=== PATIENT | female | born 1935 | race Caucasian/White ===

== ENCOUNTER → 2018-09-22 08:02 | Outpatient (CLI) | payer MEDICARE, SELFPAY ==
[2018-09-22 08:49] LABS: Add Manual Diff / Slide Review NO; Basophils Absolute Auto 0 /uL (0-100); Basophils Percent Auto 0.7 % (0-2); Eosinophils Absolute Auto 200 /uL (0-450); Eosinophils Percent Auto 3.2 % (2-4); Hematocrit 39.2 % (36-46); Hemoglobin 12.9 g/dL (12.0-16.0); Lymphocytes Absolute Auto 1900 /uL (1100-4500); Lymphocytes Percent Auto 34.9 % (25-40); Mean Corpuscular Hemoglobin 30.3 PG (26-34); Mean Corpuscular Volume 91.7 fL (80-100); Monocytes Absolute Auto 500 /uL (0-900); Monocytes Percent Auto 8.4 % (3-14); Neutrophils Absolute Auto 2900 /uL (1500-7000); Neutrophils Percent Auto 52.8 % (50-75); Platelet Count 168 X10^3/uL (150-400); Red Blood Cell Count 4.27 X10^6/uL (4.0-5.2); Red Cell Distribution Width 13.9 % (11.6-14.8); White Blood Cell Count 5.5 X10^3/uL (4.5-11.0)
[2018-09-22 09:02] LABS: Alanine Aminotransferase 28 IU/L (9-52); Albumin 4.2 g/dL (3.5-5.0); Albumin Globulin Ratio 1.6 (1.0-2.8); Alkaline Phosphatase 61 U/L (38-126); Aspartate Aminotransferase 29 IU/L (14-36); Bilirubin Total 1.4 mg/dL (0.2-1.3); Blood Urea Nitrogen 24 mg/dL (7-17); Calcium 9.1 mg/dL (8.4-10.2); Carbon Dioxide 23 mmol/L (22-32); Chloride 107 mmol/L (98-107); Cholesterol 179 mg/dL (140-199); Estimated Glomerular Filt Rate 53.1 mL/min (>60); Globulin 2.7 g/dL (1.7-4.1); Glucose 95 mg/dL (80-110); HDL Cholesterol 70 mg/dL (40-60); HEMOLYSIS < 15 (0-50); LDL Cholesterol Calculated 92 mg/dL (<100); Sodium 140 mmol/L (137-145); Total Protein 6.9 g/dL (6.3-8.2); Triglycerides 85 mg/dL (35-150)
[2018-09-22 09:38] LABS: Thyroid Stimulating Hormone 3.31 uIU/mL (0.47-4.68)
== END ==
PROVIDERS: PCP Family Medicine; Visit Provider Family Medicine
DX: I10 Essential (primary) hypertension (principal); R53.83 Other fatigue; R68.89 Other general symptoms and signs
CPT/HCPCS: 36415; 80053; 80061; 84443; 85025

== ENCOUNTER → 2018-09-24 09:46 | Outpatient (CLI) | payer MEDICARE, SELFPAY ==
[2018-09-24 10:32] LABS: Appearance Urine UA CLEAR; Bilirubin Urine UA NEGATIVE (NEGATIVE); Glucose Urine UA NEGATIVE (Negative); Ketones Urine UA NEGATIVE (NEGATIVE); Leukocyte Esterase Urine UA NEGATIVE (NEGATIVE); Nitrite Urine UA NEGATIVE (Negative); Occult Blood Urine UA TRACE-INTACT (Negative); Protein Urine UA NEGATIVE (Negative); Specific Gravity Urine UA 1.015 (1.000-1.035); Urobilinogen Urine UA 0.2 E.U./dL (0.2)
[2018-09-24 10:34] LABS: Color Urine UA Straw
== END ==
PROVIDERS: PCP Family Medicine; Visit Provider Family Medicine
DX: I10 Essential (primary) hypertension (principal); R53.83 Other fatigue; R68.89 Other general symptoms and signs
CPT/HCPCS: 81003

== ENCOUNTER 2018-10-01 03:46 | Emergency (ER) | payer MEDICARE, SELFPAY ==
--- NOTE | 2018-10-01 03:48 | ED.LOWEXIN ---
HPI - Extremity Injury (Lower) General Chief Complaint: Extremity Injury, Lower Stated Complaint: twisted left ankle last night Time Seen by Provider: 10/01/18 03:48 Source: patient and family Mode of arrival: ambulatory Limitations: no limitations History of Present Illness HPI Narrative: 82-year-old female nonsmoker presents with her in the chief complaint of left ankle pain after tripping uneven concrete on her way home from a meeting at 8:00 p.m. She fell and injured her foot/ankle and then walked home multiple blocks on her injured foot. She complains increased pain with ambulation and the development of some bruising along her lateral ankle. Patient denies any other injuries. She has no head neck or back pain. She has no hip or knee pain. She denies numbness, tingling or weakness MD complaint: ankle injury and foot injury Onset (ago): hour(s) Type of Injury: inversion Place: street/outdoors Severity: mild Relieving factors: rest Exacerbating factors: weight bearing and movement Context: fall and walking Associated symptoms: snap/pop sensation Other symptoms: none Related Data Home Medications Medication Instructions Recorded Confirmed [Eye-Protect] #0 09/09/17 08/05/18 aspirin #0 09/09/17 08/05/18 glucosamine sulfate [Genicin] 500 mg PO #0 09/09/17 08/05/18 latanoprost 1 drp OPHTH HS #0 09/09/17 08/05/18 timolol maleate [Timoptic] 1 drp OPHTH #0 09/09/17 08/05/18 Previous Rx's Medication Instructions Recorded amlodipine 2.5 mg tablet 2.5 mg PO QDAY #30 tab 09/01/18 Allergies Allergy/AdvReac Type Severity Reaction Status Date / Time Penicillins [PENICILLINS] Allergy Unknown Verified 10/01/18 03:59 Review of Systems Constitutional Denies chills, Denies fever(s), Denies lethargy and Denies weakness Eyes Denies change in vision, Denies eye discharge, Denies irritation and Denies loss of vision ENT Ears, Nose, Mouth, and Throat: Denies change in voice, Denies neck pain and Denies sore throat Cardiovascular Denies chest pain, Denies irregular heart rhythm, Denies lightheadedness, Denies palpitations, Denies dyspnea, Denies dyspnea on exertion and Denies orthopnea Respiratory Denies cough, Denies dyspnea, Denies dyspnea on exertion and Denies wheezing Gastrointestinal Gastrointestinal: Denies abdominal pain, Denies change in bowel habits, Denies diarrhea, Denies nausea and Denies vomiting Genitourinary Denies hematuria, Denies flank pain, Denies urinary incontinence and Denies urinary urgency Musculoskeletal Reports joint swelling, Reports limited range of motion and Denies neck pain Integumentary/Breasts Denies pruritus, Denies erythema, Denies rash and Denies wounds Neurologic Denies confusion, Denies loss of vision and Denies weakness Psychiatric Denies anxiety, Denies confusion, Denies depression, Denies homicidal ideation and Denies suicidal ideation Endocrine Denies palpitations Hematologic/Lymphatic Denies easy bruising Allergic/Immunologic Denies wheezing PFSH Family History Father No problems noted. Mother Cancer Social History Smoking Status: Never smoker Exam Narrative Exam Narrative: GEN: Pleasant 82-year-old female in mild distress, rubbing her left foot EYES: Pupils are equal, round, and reactive to light and accommodation. Extraoccular muscles are intact bilaterally. There is no subconjunctival hemorrhage or exudate. CHEST: Lungs are clear to auscultation bilaterally and free of wheezes, rales, or rhonchi. Heart rate is regular rhythm, there are no murmurs, clicks, rubs, or gallops. There is no chest wall tenderness. ABD: Abdomen is soft and nontender. There is no guarding or rebound. Bowel sounds are normal in all 4 quadrants. There is no mass or organomegaly. EXT: No pain to palpation of left hip, knee or ankle. Pain to left lateral foot with ecchymosis overlying 5th metatarsal. Closed, isolated and neurovascularly intact SKIN: Warm, pink, and dry. No erythema or rash Initial Vital Signs Initial Vital Signs: Vital Signs Temperature 98.5 F 10/01/18 03:50 Pulse Rate 94 H 10/01/18 03:50 Respiratory Rate 18 10/01/18 03:50 Blood Pressure 156/78 H 10/01/18 03:50 Pulse Oximetry 99 10/01/18 03:50 Procedures Orthopedic Splinting/Casting Injury #1: Side: left Lower Extremity Injury Location: foot Lower Extremity Immobilizer: boot orthosis Course Orders Ordered: ED Orders 10/01/18 03:55 XR ankle LT min 3V Stat XR foot LT min 3V Stat Vital Signs - 8 hr 10/01/18 03:50 Temperature 98.5 F Pulse Rate 94 H Respiratory Rate 18 Blood Pressure 156/78 H Pulse Oximetry 99 Discharge Plan Departure Patient Disposition: Home Clinical Impression: Closed fracture of fifth metatarsal bone of left foot Discharge Date/Time: 10/01/18 04:35 Interventions: ED Discharge Assessment Last Done: 10/01/18 04:39 Instructions: DI for Foot Fracture Activity Restrictions/Additional Instructions: *You have been diagnosed with [ proximal fifth metatarsal fracture ] *What to do: *Take medications as directed: tylenol or motrin for pain *Follow up with [facility] in 2-3 days, call for an appointment. Let them know you were seen in the Emergency Department and that we ask that you be seen in follow up *Return to ER if you should have any new, worsening or concerning symptoms *Wear splint for comfort Prescriptions: No Action latanoprost 0.005 % drops 1 drp OPHTH HS Qty: 0 RF: 0 timolol maleate [Timoptic] 0.25 % drops 1 drp OPHTH Qty: 0 RF: 0 aspirin 81 MG tablet,delayed release (DR/EC) Qty: 0 RF: 0 glucosamine sulfate [Genicin] 500 MG capsule 500 mg PO Qty: 0 RF: 0 [Eye-Protect] Qty: 0 RF: 0 amlodipine [Norvasc] 2.5 mg tablet 2.5 mg PO QDAY Qty: 30 RF: 3 Referrals: Tavares Peterson MD [Physician] -
[2018-10-01 03:50] VITALS: BP 156/78; PULSE 94; RESP 18; TEMP 36.9; O2SAT 99; BMI 20.7
--- NOTE | 2018-10-01 03:55 | DI.RAD.S_ITS ---
PROCEDURE: XR FOOT LT MIN 3V INDICATIONS: Left ankle/foot pain TECHNIQUE: 3 views of the foot were acquired. COMPARISON: None. FINDINGS: Bones: Mildly displaced fracture to the base of the fifth metatarsal is noted. Fracture extends into the fifth tarsal-metatarsal joint. Soft tissues: No tibiotalar joint effusion. Achilles tendon appears normal. IMPRESSION: Fifth metatarsal fracture. Dictated by: Nicole Howard MD, PhD on 10/01/2018 at 7:37 Approved by: Nicole Howard MD, PhD on 10/01/2018 at 7:38
--- NOTE | 2018-10-01 03:55 | DI.RAD.S_ITS ---
PROCEDURE: XR ANKLE LT MIN 3V INDICATIONS: Left ankle/foot pain TECHNIQUE: 3 views of the ankle were acquired. COMPARISON: None. FINDINGS: Bones: No fractures or dislocations. Ankle mortise is normally aligned. No suspicious bony lesions. Soft tissues: No tibiotalar joint effusion. Achilles tendon appears normal. IMPRESSION: No fracture. No osseous lesion. If symptoms and/or clinical suspicion for pathology persists, further assessment with repeat radiographs (7-10 days) or advanced imaging (e.g. CT, MRI or bone scan) may be helpful. Dictated by: Nicole Howard MD, PhD on 10/01/2018 at 7:38 Approved by: Nicole Howard MD, PhD on 10/01/2018 at 7:38
== END 2018-10-01 04:35 | disposition home or self-care (01) ==
PROVIDERS: Emergency Provider Emergency Medicine; PCP Family Medicine
DX: S92.352A Displaced fracture of fifth metatarsal bone, left foot, initial encounter for closed fracture (principal); W01.0XXA Fall on same level from slipping, tripping and stumbling without subsequent striking against object, initial encounter
CPT/HCPCS: 73610; 73630; 99283

== ENCOUNTER → 2020-02-12 11:37 | Outpatient (CLI) | payer MEDICARE, SELFPAY ==
[2020-02-12 12:22] LABS: Add Manual Diff / Slide Review NO; Basophils Absolute Auto 0 /uL (0-100); Basophils Percent Auto 0.6 % (0-2); Eosinophils Absolute Auto 100 /uL (0-450); Eosinophils Percent Auto 1.7 % (2-4); Hematocrit 37.7 % (36-46); Hemoglobin 12.7 g/dL (12.0-16.0); Lymphocytes Absolute Auto 1200 /uL (1100-4500); Lymphocytes Percent Auto 15.9 % (25-40); Mean Corpuscular HGB Conc 33.7 % (30-36); Mean Corpuscular Hemoglobin 30.8 PG (26-34); Mean Corpuscular Volume 91.4 fL (80-100); Monocytes Absolute Auto 500 /uL (0-900); Monocytes Percent Auto 6.9 % (3-14); Neutrophils Absolute Auto 5800 /uL (1500-7000); Neutrophils Percent Auto 74.9 % (50-75); Platelet Count 148 X10^3/uL (150-400); Red Blood Cell Count 4.12 X10^6/uL (4.0-5.2); Red Cell Distribution Width 14.6 % (11.6-14.8); White Blood Cell Count 7.8 X10^3/uL (4.5-11.0)
[2020-02-12 13:03] LABS: BUN Creatinine Ratio 28.1 (6-22); Blood Urea Nitrogen 36 mg/dL (7-17); Calcium 9.3 mg/dL (8.4-10.2); Carbon Dioxide 26 mmol/L (22-32); Chloride 105 mmol/L (98-107); Estimated Glomerular Filt Rate 39.7 mL/min (>60); Glucose 87 mg/dL (80-110); HEMOLYSIS < 15 (0-50); Potassium 4.4 mmol/L (3.4-5.1); Sodium 139 mmol/L (137-145)
[2020-02-12 13:16] LABS: Vitamin D 25 Hydroxy (D3) 24.7 ng/mL (30.0-100.0)
[2020-02-12 13:19] LABS: Free T4, Direct Thyroxine 1.07 ng/dL (0.78-2.19)
[2020-02-12 13:33] LABS: Thyroid Stimulating Hormone 2.73 uIU/mL (0.47-4.68)
[2020-02-12 13:51] LABS: Vitamin B12 583 pg/mL (239-931)
== END ==
PROVIDERS: PCP Family Medicine; Referring Provider Family Medicine; Visit Provider Family Medicine
DX: I10 Essential (primary) hypertension (principal); M81.0 Age-related osteoporosis without current pathological fracture; R53.83 Other fatigue
CPT/HCPCS: 36415; 80048; 82306; 82607; 84439; 84443; 84481; 85025

== ENCOUNTER → 2020-02-16 08:59 | Outpatient (CLI) | payer MEDICARE, SELFPAY ==
[2020-02-16 10:39] LABS: BUN Creatinine Ratio 22.7 (6-22); Blood Urea Nitrogen 22 mg/dL (7-17); Estimated Glomerular Filt Rate 54.7 mL/min (>60)
== END ==
PROVIDERS: PCP Family Medicine; Referring Provider Family Medicine; Visit Provider Family Medicine
DX: E86.0 Dehydration (principal); N18.3 Chronic kidney disease, stage 3 (moderate)
CPT/HCPCS: 36415; 82565; 84520

== ENCOUNTER → 2021-03-20 10:42 | Outpatient (CLI) | payer MEDICARE, SELFPAY ==
[2021-03-20 11:24] LABS: Add Manual Diff / Slide Review NO; Basophils Absolute Auto 0 /uL (0-100); Basophils Percent Auto 0.9 % (0-2); Eosinophils Absolute Auto 100 /uL (0-450); Hemoglobin 12.5 g/dL (12.0-16.0); Lymphocytes Absolute Auto 1300 /uL (1100-4500); Lymphocytes Percent Auto 25.5 % (25-40); Mean Corpuscular HGB Conc 33.7 % (30-36); Mean Corpuscular Hemoglobin 30.6 PG (26-34); Mean Corpuscular Volume 90.8 fL (80-100); Monocytes Absolute Auto 400 /uL (0-900); Monocytes Percent Auto 8.5 % (3-14); Neutrophils Absolute Auto 3200 /uL (1500-7000); Neutrophils Percent Auto 63.1 % (50-75); Platelet Count 152 X10^3/uL (150-400); Red Blood Cell Count 4.08 X10^6/uL (4.0-5.2); Red Cell Distribution Width 14.6 % (11.6-14.8); White Blood Cell Count 5.1 X10^3/uL (4.5-11.0)
[2021-03-20 11:36] LABS: Alanine Aminotransferase 19 IU/L (<35); Albumin 4.3 g/dL (3.5-5.0); Albumin Globulin Ratio 1.5 (1.0-2.8); Alkaline Phosphatase 55 U/L (38-126); Aspartate Aminotransferase 37 IU/L (14-36); BUN Creatinine Ratio 22.5 (6-22); Bilirubin Total 1.9 mg/dL (0.2-1.3); Blood Urea Nitrogen 20 mg/dL (7-17); Calcium 9.4 mg/dL (8.4-10.2); Carbon Dioxide 28 mmol/L (22-32); Chloride 107 mmol/L (98-107); Creatine Kinase 60 U/L (30-135); Estimated Glomerular Filt Rate > 60.0 mL/min (>60); Globulin 2.8 g/dL (1.7-4.1); Glucose 94 mg/dL (80-110); HEMOLYSIS < 15 (0-50); Potassium 3.9 mmol/L (3.4-5.1); Sodium 142 mmol/L (137-145); Total Protein 7.1 g/dL (6.3-8.2)
[2021-03-20 11:44] LABS: NT-proBNP (BNP-Adult 18+) 1180 pg/mL (<450); Troponin I < 0.012 ng/mL (0.01-0.034)
== END ==
PROVIDERS: PCP Family Medicine; Referring Provider Family Medicine; Visit Provider Family Medicine
DX: M25.471 Effusion, right ankle (principal); M25.472 Effusion, left ankle; N18.30 Chronic kidney disease, stage 3 unspecified
CPT/HCPCS: 36415; 80053; 82550; 83880; 84484; 85025

== ENCOUNTER 2021-06-19 04:37 | Observation (INO) | payer MEDICARE, SELFPAY ==
[2021-06-19] VITALS (18 sets, daily range): BP systolic 110–158; BP diastolic 61–87; PULSE 74–114; RESP 16–29; TEMP 35.9–36.9; O2SAT 94–98; BMI 20.7
--- NOTE | 2021-06-19 04:44 | DI.RAD.S_ITS ---
PROCEDURE: XR LUMBAR SPINE 2-3V INDICATIONS: fall one week ago with back pain TECHNIQUE: 3 views of the lumbar spine were acquired. COMPARISON: None. FINDINGS: Bones: 5 [id number] vertebrae are present. There is normal bony alignment. L2 compression fracture of indeterminate age. L2 compression fracture results in approximately 50% loss of normal central and anterior vertebral body height. Degenerative disc disease noted throughout the lumbar spine. Facet arthropathy throughout the lumbar spine. No suspicious bony lesions. Soft tissues: Overlying bowel gas pattern is normal. No suspicious soft tissue calcifications. IMPRESSION: L2 compression fracture of indeterminate age. Recommend MRI of the lumbar spine for additional evaluation if clinically indicated. Dictated by: Nicole Howard MD, PhD on 06/19/2021 at 8:13 Approved by: Nicole Howard MD, PhD on 06/19/2021 at 8:14
--- NOTE | 2021-06-19 04:55 | ED.BACK ---
HPI - Back Pain/Injury General Chief Complaint: Back Pain/Injury Stated Complaint: back pain Time Seen by Provider: 06/19/21 04:43 History of Present Illness HPI Narrative: 85-year-old female never smoker with a history of hypertension and osteoporosis presents by EMS for evaluation of gradually worsening right flank pain and low back pain over the course of the past week or so. She admits that she had rolled out of bed and landed on her lower back about a week ago and did not think much of it but over the course of weeks had increasing pain. She now has significant pain when at rest and intensifies with motion. It stays in her lower back and is not in the midline but more off to the side. She denies any loss of control of bowel or bladder nor any numbness or tingling of her lower extremities. She has no extremity weakness. She denies any radiation of the symptoms down her legs. She denies fever or chills. She is not dizzy nor weak or lightheaded. She denies any runny nose, sore throat or cough. She has no chest pain or shortness of breath. She has no nausea, vomiting or diarrhea. She denies dysuria, frequency or urgency. She was able to walk yesterday and is in too much pain today Related Data Home Medications Medication Instructions Recorded Confirmed [Eye-Protect] See Rx Instructions .ROUTE 09/09/17 06/19/21 .COMPLEX PRN #0 glucosamine sulfate 500 mg capsule 500 mg PO DAILY #0 09/09/17 06/19/21 (Genicin) latanoprost 0.005 % eye drops 1 drp OPHTH HS #0 09/09/17 06/19/21 timolol maleate 0.25 % eye drops 1 drp OPHTH DAILY #0 09/09/17 06/19/21 (Timoptic) Previous Rx's Medication Instructions Recorded amlodipine 2.5 mg tablet See Rx Instructions .ROUTE 03/28/21 .COMPLEX #90 tab acetaminophen 325 mg tablet 975 mg PO Q8H PRN #10 tab 06/21/21 lidocaine 4 % topical patch 1 patch TOPICAL DAILY PRN #10 ea 06/21/21 (Lidocaine Pain Relief) methocarbamol 500 mg tablet 500 mg PO QID PRN #10 tab 06/21/21 oxycodone 5 mg tablet 5 mg PO Q6HR PRN #10 tab 06/21/21 Allergies Allergy/AdvReac Type Severity Reaction Status Date / Time Penicillins [PENICILLINS] Allergy Unknown Verified 06/19/21 04:55 Review of Systems Review of Systems Narrative: GENERAL: Denies chills, fatigue, malaise, fever, sweats. HEENT: Denies sinus pain, ear pain, sore throat, difficulty swallowing, dizziness. RESPIRATORY: Denies dyspnea, cough, wheezing, hemoptysis, sputum. CARDIOVASCULAR: Denies chest pain, palpitations, orthopnea, edema, GASTROINTESTINAL: Denies nausea, vomiting, abdominal pain, diarrhea, constipation, melena. : Denies dysuria, frequency, incontinence, hematuria, urinary retention. MUSCULOSKELETAL: See HPI SKIN: Denies rash, skin lesions, or other NEUROLOGIC: Denies weakness, headache, numbness, change in speech, confusion, seizures, incoordination. PSYCHIATRIC: No concerning psychosocial issues. 12 point review of systems is negative except for those stated above Patient History Medical History Cataracts, bilateral (~2013) CKD (chronic kidney disease) stage 3, GFR 30-59 ml/min Fatigue Fractures (2000) Glaucoma (~2017) Gout (2001) Hypertension (Unknown) Osteoporosis (~1998) POLST (Physician Orders for Life-Sustaining Treatment) Swelling of both ankles Surgical History History of surgery on arm (~2000) History of tonsillectomy (1961) Status post cholecystectomy (1995) Family History Father No problems noted. Mother Cancer Social History household members: spouse Smoking Status: Never smoker Smoking Status: Never smoker Exam Narrative Exam Narrative: GENERAL: [85 year old patient appears stated age. Well-developed patient, in mild distress. GCS 15 HEAD: Atraumatic. Normocephalic. EYES: Pupils equal round and reactive. Extraocular motions intact. No scleral icterus. No injection or drainage. ENT: Nose without bleeding, purulent drainage. Throat without erythema, tonsillar hypertrophy or exudate. Airway patent. NECK: Trachea midline. Non tender CARDIOVASCULAR: Tachycardic but regular rhythm without murmurs, gallops, or rubs. RESPIRATORY: Clear to auscultation. Breath sounds equal bilaterally. No wheezes, rales, or rhonchi. GASTROINTESTINAL: Abdomen soft, non-tender, nondistended. EXTREMITIES: No edema or joint tenderness. BACK: tender to palp in R buttock, no obvious shortening or rotation NEURO: AOx3. SKIN: No rash or erythema of visible areas Initial Vital Signs Initial Vital Signs: Vital Signs Temperature 98.4 F 06/19/21 04:55 Pulse Rate 114 H 06/19/21 04:55 Respiratory Rate 18 06/19/21 04:55 Blood Pressure 146/67 H 06/19/21 04:55 Pulse Oximetry 97 06/19/21 04:55 Course Orders Ordered: Discontinued Medications Acetaminophen (Acetaminophen 325 Mg Tablet) 975 mg PO Q8H PRN PRN Reason: Fever/Mild Pain (1-3) Last Admin: 06/20/21 15:41 Dose: 975 mg Documented by: Admin: 06/20/21 09:33 Dose: 975 mg Documented by: Admin: 06/19/21 09:25 Dose: 975 mg Documented by: DORY Enoxaparin Sodium (Enoxaparin 40 Mg/0.4 Ml Syringe) 40 mg SUBCUT DAILY [facility] Last Admin: 06/19/21 09:19 Dose: 40 mg Documented by: DORY Enoxaparin Sodium (Enoxaparin 30 Mg/0.3 Ml Syringe) 30 mg SUBCUT DAILY [facility] Last Admin: 06/21/21 09:50 Dose: 30 mg Documented by: Admin: 06/20/21 09:34 Dose: 30 mg Documented by: CELSA Fentanyl (Fentanyl 100 Mcg/2 Ml Inj) 50 mcg 1 mcg/kg (50 mcg) IV NOW ONE Stop: 06/19/21 05:24 Last Admin: 06/19/21 05:30 Dose: 50 mcg Documented by: LAURI Sodium Chloride (Normal Saline 0.9%) 500 mls @ 1,000 mls/hr IV BOLUS ONE Stop: 06/19/21 05:13 Last Infusion: 06/19/21 08:26 Dose: 0 mls/hr Documented by: Admin: 06/19/21 06:20 Dose: 1,000 mls/hr Documented by: LAURI Lidocaine (Lidocaine Patch 1 Each Adh..Patch) 1 each TOP NOW ONE Stop: 06/19/21 09:01 Last Admin: 06/19/21 09:25 Dose: 1 each Documented by: DORY Lidocaine (Lidocaine Patch 1 Each Adh..Patch) 1 each TOP DAILY BINU Last Admin: 06/21/21 09:50 Dose: 1 each Documented by: MOE Lidocaine (Remove Lidocaine Patch) 1 each TOP BEDTIME BINU Last Admin: 06/20/21 20:28 Dose: Not Given Documented by: INOCENCIO Methocarbamol (Methocarbamol 500 Mg Tablet) 500 mg PO QID PRN PRN Reason: Muscle Spasm Last Admin: 06/20/21 14:32 Dose: 500 mg Documented by: Admin: 06/20/21 09:33 Dose: 500 mg Documented by: Admin: 06/19/21 09:36 Dose: 500 mg Documented by: DORY Naloxone HCl (Naloxone 0.4 Mg/Ml Vial) 0.2 mg IV Q2MIN PRN PRN Reason: Opiate Reversal Ondansetron HCl (Ondansetron 4 Mg/2 Ml Inj) 4 mg IV Q8HR PRN PRN Reason: Nausea And Vomiting Oxycodone HCl (Oxycodone Ir 5 Mg Tablet) 5 mg PO Q6HR PRN PRN Reason: Pain, Moderate (4-6) Last Admin: 06/19/21 09:19 Dose: 5 mg Documented by: DORY Vital Signs Vital signs: Vital Signs - 8 hr 06/19/21 04:55 Temperature 98.4 F Pulse Rate 114 H Respiratory Rate 18 Blood Pressure 146/67 H Pulse Oximetry 97 MDM - Back Pain/Injury Lab Data Result diagrams: 06/19/21 05:18 06/19/21 05:18 Labs: Lab Results 06/19/21 06/19/21 06/19/21 Range/Units 05:18 05:18 05:18 WBC 7.5 (4.5-11.0) X10^3/uL RBC 3.75 L (4.0-5.2) X10^6/uL Hgb 11.3 L (12.0-16.0) g/dL Hct 34.6 L (36-46) % MCV 92.3 (80-100) fL MCH 30.1 (26-34) PG MCHC 32.6 (30-36) % RDW 14.5 (11.6-14.8) % Plt Count 136 L (150-400) X10^3/uL Neut % (Auto) 74.8 (50-75) % Lymph % (Auto) 14.3 L (25-40) % Spalding % (Auto) 8.5 (3-14) % Eos % (Auto) 2.0 (2-4) % Baso % (Auto) 0.4 (0-2) % Neut # (Auto) 5600 (5072-4921) /uL Lymph # (Auto) 1100 (8712-4967) /uL Spalding # (Auto) 600 (0-900) /uL Eos # (Auto) 100 (0-450) /uL Baso # (Auto) 0 (0-100) /uL Sodium 138 (137-145) mmol/L Potassium 3.7 (3.4-5.1) mmol/L Chloride 106 (98-107) mmol/L Carbon Dioxide 23 (22-32) mmol/L BUN 32 H (7-17) mg/dL Creatinine 1.08 H (0.52-1.04) mg/dL Estimated GFR 48.2 L (>60) mL/min BUN/Creatinine Ratio 29.6 H (6-22) Glucose 99 (80-110) mg/dL Lactate 0.8 (0.7-2.1) mmol/L Calcium 9.1 (8.4-10.2) mg/dL Total Bilirubin 1.7 H (0.2-1.3) mg/dL AST 57 H (14-36) IU/L ALT 46 H (<35) IU/L Alkaline Phosphatase 79 (38-126) U/L Total Protein 6.7 (6.3-8.2) g/dL Albumin 4.0 (3.5-5.0) g/dL Globulin 2.7 (1.7-4.1) g/dL Albumin/Globulin Ratio 1.5 (1.0-2.8) Urine RBC (0-5/HPF) Urine WBC (0-5/HPF) Ur Transition Epith Cell (0-5/HPF) Urine Bacteria (None) Ur Culture Indicated? SARS-CoV-2 (PCR) (Negative) 06/19/21 06/19/21 Range/Units 05:55 06:20 WBC (4.5-11.0) X10^3/uL RBC (4.0-5.2) X10^6/uL Hgb (12.0-16.0) g/dL Hct (36-46) % MCV (80-100) fL MCH (26-34) PG MCHC (30-36) % RDW (11.6-14.8) % Plt Count (150-400) X10^3/uL Neut % (Auto) (50-75) % Lymph % (Auto) (25-40) % Spalding % (Auto) (3-14) % Eos % (Auto) (2-4) % Baso % (Auto) (0-2) % Neut # (Auto) (9033-4109) /uL Lymph # (Auto) (4193-5944) /uL Spalding # (Auto) (0-900) /uL Eos # (Auto) (0-450) /uL Baso # (Auto) (0-100) /uL Sodium (137-145) mmol/L Potassium (3.4-5.1) mmol/L Chloride (98-107) mmol/L Carbon Dioxide (22-32) mmol/L BUN (7-17) mg/dL Creatinine (0.52-1.04) mg/dL Estimated GFR (>60) mL/min BUN/Creatinine Ratio (6-22) Glucose (80-110) mg/dL Lactate (0.7-2.1) mmol/L Calcium (8.4-10.2) mg/dL Total Bilirubin (0.2-1.3) mg/dL AST (14-36) IU/L ALT (<35) IU/L Alkaline Phosphatase (38-126) U/L Total Protein (6.3-8.2) g/dL Albumin (3.5-5.0) g/dL Globulin (1.7-4.1) g/dL Albumin/Globulin Ratio (1.0-2.8) Urine RBC 1-5/hpf (0-5/HPF) Urine WBC None seen (0-5/HPF) Ur Transition Epith Cell 0-1/hpf (0-5/HPF) Urine Bacteria None seen (None) Ur Culture Indicated? Cult not indicated SARS-CoV-2 (PCR) Negative (Negative) Urine Dip Bedside Urine Glucose Negative Bedside Urine Bilirubin - Negative Bedside Urine Ketone +/- 5 Urine Specific Frederic 1.025 Bedside Urine Occult Blood ++ Bedside Urine pH 5.5 Bedside Urine Protein - Negative Bedside Urine Urobilinogen - Negative Bedside Urine Nitrite - Negative Bedside Urine Leukocytes - Negative Esterase Imaging Data Lumbar Xray: Radiologist's Impression: Compression deformity of L2 suspected, superior endplate deformities of L4 and L5 Pelvis CT: Radiologist's Impression: No acute pelvic fracture or dislocation. Soft tissue swelling overlying the posterior right hip MDM Narrative Medical decision making narrative: Patient with fall 1 week ago has increasing pain and can no longer ambulate today due to this pain. Imaging would suggest at least a compression fracture at L2 but no other findings. Patient cannot ambulate and could yesterday. Discharge Plan Departure Patient Disposition: Admitted as Observation Clinical Impression: Fracture of lumbar spine Qualifiers: Encounter type: initial encounter Lumbar vertebra fracture level: L2 Fracture type: closed Fracture morphology: wedge compression Qualified Code(s): S32.020A - Wedge compression fracture of second lumbar vertebra, initial encounter for closed fracture Admit Date/Time: 06/19/21 08:12 Admit Provider: Susannah Fraga
--- NOTE | 2021-06-19 05:04 | DI.CT.S_ITS ---
PROCEDURE: CT PEL WO CON INDICATIONS: pelvic fracture after fall TECHNIQUE: Noncontrast 3 mm axial sections acquired through the bony pelvis, with coronal and sagittal reformatting. COMPARISON: None. FINDINGS: Image quality: Excellent. Bones: Bones are diffusely osteopenic. No displaced right hip fracture or right hip dislocation. Degenerative disc changes noted in the visualized lumbar spine. Schmorl's nodes into the superior endplates of the L4 and L5 vertebral bodies. Soft tissues: Soft tissue swelling noted posterior to the right hip. No soft tissue hematoma identified. Scattered atherosclerotic calcifications involving the visualized abdominal and pelvic vasculature. IMPRESSION: No fracture. No acute osseous lesion. If symptoms and/or clinical suspicion for pathology persists, further assessment with repeat radiographs (7-10 days) MRI should be considered. Dictated by: Nicole Howard MD, PhD on 06/19/2021 at 7:39 Approved by: Nicole Howard MD, PhD on 06/19/2021 at 7:44
[2021-06-19] MEDS: fentaNYL 100 MCG/2 ML INJ 50 MCG IV (05:30)
[2021-06-19 05:40] LABS: Add Manual Diff / Slide Review NO; Basophils Absolute Auto 0 /uL (0-100); Basophils Percent Auto 0.4 % (0-2); Eosinophils Absolute Auto 100 /uL (0-450); Hematocrit 34.6 % (36-46); Hemoglobin 11.3 g/dL (12.0-16.0); Lymphocytes Absolute Auto 1100 /uL (1100-4500); Lymphocytes Percent Auto 14.3 % (25-40); Mean Corpuscular HGB Conc 32.6 % (30-36); Mean Corpuscular Hemoglobin 30.1 PG (26-34); Mean Corpuscular Volume 92.3 fL (80-100); Monocytes Absolute Auto 600 /uL (0-900); Monocytes Percent Auto 8.5 % (3-14); Neutrophils Absolute Auto 5600 /uL (1500-7000); Neutrophils Percent Auto 74.8 % (50-75); Platelet Count 136 X10^3/uL (150-400); Red Blood Cell Count 3.75 X10^6/uL (4.0-5.2); Red Cell Distribution Width 14.5 % (11.6-14.8); White Blood Cell Count 7.5 X10^3/uL (4.5-11.0)
[2021-06-19 05:41] LABS: Lactate (Lactic Acid) 0.8 mmol/L (0.7-2.1)
[2021-06-19 05:42] LABS: Alanine Aminotransferase 46 IU/L (<35); Albumin Globulin Ratio 1.5 (1.0-2.8); Alkaline Phosphatase 79 U/L (38-126); Aspartate Aminotransferase 57 IU/L (14-36); BUN Creatinine Ratio 29.6 (6-22); Bilirubin Total 1.7 mg/dL (0.2-1.3); Blood Urea Nitrogen 32 mg/dL (7-17); Calcium 9.1 mg/dL (8.4-10.2); Carbon Dioxide 23 mmol/L (22-32); Chloride 106 mmol/L (98-107); Estimated Glomerular Filt Rate 48.2 mL/min (>60); Globulin 2.7 g/dL (1.7-4.1); Glucose 99 mg/dL (80-110); HEMOLYSIS < 15 (0-50); Potassium 3.7 mmol/L (3.4-5.1); Sodium 138 mmol/L (137-145); Total Protein 6.7 g/dL (6.3-8.2)
[2021-06-19 06:15] LABS: Bacteria Urine None Seen; Culture Indicated Urine Cult Not Indicated; RBC Urine 1-5/HPF (0-5/HPF); Transitional Epi Cells Urine 0-1/HPF (0-5/HPF); WBC Urine None Seen (0-5/HPF)
[2021-06-19] MEDS: SODIUM CHLORIDE 0.9% 500 ML 1000 ML IV (06:20)
[2021-06-19 07:17] LABS: COVID19 - ADMIT (NP swab/PCR) Negative (Negative)
--- NOTE | 2021-06-19 08:27 | PC.NURSE ---
report given to AGNES weller
--- NOTE | 2021-06-19 08:57 | PC.NURSE ---
Day shift: Pt on AC unit from ED at approx 0900. She is A&Ox4. RA 95%. VS WNL. HR [address] Pryor aware of HR. Will medicate for low back pain per MAR. Denies any chest pain or SOB. Pain with movement. Dry skin on her shins and feet. Skin is fragile and thin throughout. Oriented to room and call light. Bed alarm is on and she agrees to not get OOB w/o help from staff.
[2021-06-19] MEDS: OXYCODONE IR 5 MG TABLET PO (09:19)
[2021-06-19] MEDS: ENOXAPARIN 40 MG/0.4 ML SYRINGE SUBCUT (09:19)
[2021-06-19] MEDS: LIDOCAINE PATCH 1 EACH ADH..PATCH TOP (09:25)
[2021-06-19] MEDS: ACETAMINOPHEN 325 MG TABLET 975 MG PO (09:25)
[2021-06-19] MEDS: methocarbamoL 500 MG TABLET PO (09:36)
--- NOTE | 2021-06-19 10:39 | OT.IPNOTE ---
Per RN, pt just got admitted this AM and now sleeping. Therefore, RN states to check on her in PM or tomorrow for OT eval.
--- NOTE | 2021-06-19 11:16 | PC.NURSE ---
Day shift: Medicated for low back pain per OCT. Pt sleeping and side lying on right side. Lowe patent with good output. Call light in reach. 95% and HR 74 while asleep at this time (1115).
--- NOTE | 2021-06-19 13:44 | PT.IIE ---
Surgical History (Last Reviewed 06/19/21 @ 14:39 by Jose Pryor DO) History of tonsillectomy (1962) Status post cholecystectomy (1995) Medical History (Last Reviewed 06/19/21 @ 14:39 by Jose Pryor DO) Cataracts, bilateral (~2013) CKD (chronic kidney disease) stage 3, GFR 30-59 ml/min Fatigue Fractures (2000) Glaucoma (~2017) Gout (2001) Hypertension (Unknown) Osteoporosis (~1998) POLST (Physician Orders for Life-Sustaining Treatment) Swelling of both ankles Physical Therapy Inpatient Evaluation/Re-Eval M1 PT/OT-IP Prior Functional Status Start: 06/19/21 09:12 Freq: NEEDED Status: Active Protocol: Document 06/19/21 13:44 AW (Rec: 06/19/21 15:08 AW [id number]) Medical Review Prior Functional Status Medical History Reviewed Yes Communication Pt is an effective verbal communicator. She presents with weak voice on evaluation. Mobility and Gait Pt states she is independently mobile and does not use any assistive device Activities of Daily Living and IADL's Independent Social History Household Members spouse Living Arrangements Half-Way Facility Number of Stairs To Enter/Railing? Pt uses elevator to access her apartment. Home Equipment Grab Bars Near Toilet,Grab Bars In Shower Additional Social History Comment Pt and her spouse, Maksim, moved to [facility] within the past month. They are on the independent side and receive no assist from facility staff. Pt's spouse, Maksim, states he has some memory issues. He uses bilateral walking sticks for stability. M2 PT-IP Current Condition Start: 06/19/21 09:12 Freq: NEEDED Status: Active Protocol: Document 06/19/21 13:44 AW (Rec: 06/19/21 15:08 AW [id number]) Physical Therapy Current Condition Current Condition Evaluation Date 06/19/21 Treatment Diagnosis back pain; L2 compression fracture; impaired mobility and gait Onset Date 06/18/21 M3 PT-IP Subjective Start: 06/19/21 09:12 Freq: NEEDED Status: Active Protocol: Document 06/19/21 13:44 AW (Rec: 06/19/21 15:08 AW [id number]) Subjective Physical Therapy Visit Type Type Initial Evaluation Visit Start Time 13:17 Visit Stop Time 13:44 Total Visit Minutes 27 Notes SPT Rolanda was present throughout and assisted with mobility assessment. Number of LANCE CREWMEMBER/MLRS SERGEANT Visits 0 Physical Therapy Visit Comments Patient Comments Pt was difficult to rouse but became more alert with activity. She expressed interest in getting out of bed . Patient Goals Pt hopes to return home. Therapy Pain Assessment Pain When Pain Assessed During Mobility Pain Present Pain Present Pain Reported Location right hip Intensity 5 Scale Used Numeric (0 - 10) Pain Behaviors Wincing Pain Management Techniques Modification of Treatment,Re- positioning,Timing of Activity with Medications M4 PT-IP Mobility and Gait Start: 06/19/21 09:12 Freq: NEEDED Status: Active Protocol: Document 06/19/21 13:44 AW (Rec: 06/19/21 15:08 AW [id number]) PT-Bed Mobility Assessment Supine to Sit Supine to Sit Moderate Assistance,1 Person Assistance Scooting Scooting to Edge of Bed Maximum Assistance PT-Transfer Assessment Sit to and From Stand Sit to and from Stand Moderate Assistance,1 Person Assistance,Use of Upper Extremities Equipment Transfer Assistive Device Gait Belt,Front Wheeled Walker Orthotic/Prosthetic Devices or Brace: No Transfers Transfer Destination Chair Transfer Technique Stand Step Pivot Transfer Ability Level of Assist Moderate Assistance,1 Person Assistance,Use of Upper Extremities Comments Mobility Comments Pt was lying on her right side as PT and SPT arrived. Her spouse arrived at the same time and attempted to rouse the pt with shoulder and sternal rubs and with voice. She was slow to rouse but ultimately opened her eyes and agreed to work with PT. Educated pt on She required mod assist and cues to complete SL to sit. She sat EOB CGA and needed max assist to scoot toward EOB. PT used draw sheet to assist. She reported pain in her right hip in sitting. Pt agreed to transfer to chair, standing from the bed with mod assist and cues. She used FWW and mod assist/cues to transfer to chair set up on her left side. She needed assist to scoot back in the chair. Pt declined further mobility, citing fatigue. She was positioned on the chair with call light and tray table in reach. Her spouse remained in the room. VS during treament: BP 118/60 HR 83 supine, BP 141/73 HR 87 in sitting; BP 139/83 HR 95 after activity. Gait Assessment Gait Gait Assistance Required: Moderate Assistance,1 Person Assist Distance (Feet) 2 Assistive Devices Assistive Device Gait Belt,Front Wheeled Walker Orthotic/Prosthetic Devices or Brace: No Gait Deviations General Gait Pattern Decreased Stride Length, Decreased Feet Clearance, Festinating,Flexed Trunk,Step- to Gait Factors Limiting Gait Function Factors Limiting Gait Function Decreased Activity Tolerance, Decreased Strength,Pain,Poor Balance Comments Gait Comments Steps taken during transfer only. Pt not safe for ambulation due to reduced alertness at this visit. Stair Climbing Assessment Comments Stair Climbing Comments Not assessed. Pt uses elevator at home. PT-Balance Assessment Sitting Balance and Reactions Static Sitting Balance Ability Good Dynamic Sitting Balance Ability Fair Standing Balance and Reactions Static Standing Balance Ability Fair Dynamic Standing Balance Ability Fair Device Used FWW M5 PT-IP Objective Assessments Start: 06/19/21 09:12 Freq: NEEDED Status: Active Protocol: Document 06/19/21 13:44 AW (Rec: 06/19/21 15:08 AW [id number]) Orientation Orientation/Cognition Level of Alertness Lethargic Orientation Name,Place,Situation Language Function Ability No Deficits Noted Safety Awareness Decreased Safety Awareness Gross Range of Motion Lower Extremity ROM Assessment Within Functional Limits Strength Lower Extremity Strength Assessment Bilaterally Impaired Hip 4-/5 Knee 4/5 Ankle 4+/5 Sensation Assessment Sensation Gross Sensation WNL Muscle Tone Muscle Tone WNL Yes M6 PT-IP Treatment Start: 06/19/21 09:12 Freq: NEEDED Status: Active Protocol: Document 06/19/21 13:44 AW (Rec: 06/19/21 15:08 AW [id number]) Physical Therapy Treatment Education Education Provided Precautions,Safety M7 PT-IP Assessment and Plan Start: 06/19/21 09:12 Freq: NEEDED Status: Active Protocol: Document 06/19/21 13:44 AW (Rec: 06/19/21 15:08 AW [id number]) PT Summary Assessment and Plan Potential Rehabilitation Potential Good Status of Condition at Evaluation Evolving Summary Impairments Pain,Strength,Balance,Bed Mobility,Transfers,Gait Assessment Summary Danyell is an 85 yo woman seen for PT evaluation in the acute care setting. She fell from her bed ~1 week ago and has had increasing back pain/ impaired mobility since that time. X-ray suggests L2 compression fracture of indeterminate age. She is independently mobile at baseline. She was difficult to rouse at this encounter and required mod to max assist for bed mobility and transfer with FWW. She complained of right hip pain in sitting but not in weightbearing. Pt was educated on spinal precautions in the setting of lumbar compression fracture. PT anticipates pt's mobility will improve as her alertness improves but will continue to assess for best discharge plan . She lives at [facility] on the independent side . Her is limited in ability to assist. Pt may require SNF rehab if her mobility independence does not significantly improve during her hospital stay. Goals Bed Mobility Goal Standby Assistance Transfer Goal Standby Assistance,Front Wheeled Walker Gait Goal Standby Assistance,Front Wheel Walker Gait Distance 100 Other Goals LTG: improve transfers and ambulation to SBA with LRAD or no AD Days to Meet Goals 10 Frequency of Treatment Frequency Of Treatment Once a Day Treatment Plan Physical Therapy Treatment Plan Bed Mobility Training,Transfer Training,Gait Training, Therapeutic Exercise,Balance Retraining,Discharge Planning, Hot or Cold Pack Other Recommendations and Next Treatment bed mobility, transfers, Focus ambulation with FWW as tolerated. Precautions Lumbar Precautions Log Roll,No Twisting,Limit Bending,Lifting Restriction of 10 lbs,Gait Belt above Incisional Area Recommendations To Nursing Amount of Assist Needed 1 Person Assist Discharge Recommendations PT Discharge Recommendations Home Health,Home vs SNF Transportation Needs at Discharge Private Vehicle
--- NOTE | 2021-06-19 14:33 | OT.IPNOTE ---
Pt eating lunch and pt got up earlier with PT. Check on pt tomorrow for OT ila.
--- NOTE | 2021-06-19 14:34 | P.HP_ITS ---
History of Present Illness History of Present Illness Date Patient Seen: 06/19/21 Time Patient Seen: 14:34 Chief complaint: back pain Narrative: This is an 85-year-old female with a past medical history of hypertension, resident of [facility] who presented to the emergency room by ambulance for gradually worsening right-sided hip and low back pain over the past 5 days. Patient admits that during her sleep she ruled out of bed and landed on her right side. Over the course of following 5 days she has had increasing low back and right-sided pain. Her pain worsens with motion. She denies any loss of bowel or bladder and denies any numbness or tingling or we akness in her lower extremities. She denies any recent fever, chills, dysuria, urinary frequency, dizziness, chest pain, shortness of breath, palpitations. She was having a difficult time walking and was in too much pain so decided to come to the emergency room. In the emergency room she was given fentanyl but was unable to ambulate, the patient was admitted for further evaluation. Initial vital signs showed a mild hypertension but were otherwise unremarkable. Laboratory evaluation was also unremarkable. She does have a mild elevation in her T bili and transaminase levels, though these have been elevated in the past. Urinalysis was not indicative of infection. COVID-[address] of her pelvis did not show any occult fractures. On radiographs of her lumbar spine she was noted to have a compression fracture of L2 of indeterminate age. Patient History Medical History Cataracts, bilateral (~2013) CKD (chronic kidney disease) stage 3, GFR 30-59 ml/min Fatigue Fractures (2000) Glaucoma (~2017) Gout (2001) Hypertension (Unknown) Osteoporosis (~1998) POLST (Physician Orders for Life-Sustaining Treatment) Swelling of both ankles Surgical History History of surgery on arm (~2000) History of tonsillectomy (1961) Status post cholecystectomy (1995) Family & Social History Family History Father No problems noted. Mother Cancer Social History: household members spouse,children Prior Living Arrangements [facility] Safety & Behavioral: Feels Safe in Current Yes Environment Been Physically Hurt or No Threatened By a Person Suicidal Ideation Description None Suicide Plan Description No Plan Tobacco & Substance use: Smoking Status Never smoker alcohol intake frequency holiday/special occasion Substance Use Type does not use Meds Home Medications and Allergies Home Medications Medication Instructions Recorded Confirmed Type [Eye-Protect] See Rx Instructions .ROUTE 09/09/17 06/19/21 History .COMPLEX PRN #0 glucosamine sulfate 500 mg capsule 500 mg PO DAILY #0 09/09/17 06/19/21 History (Genicin) latanoprost 0.005 % eye drops 1 drp OPHTH HS #0 09/09/17 06/19/21 History timolol maleate 0.25 % eye drops 1 drp OPHTH DAILY #0 09/09/17 06/19/21 History (Timoptic) amlodipine 2.5 mg tablet See Rx Instructions .ROUTE 03/28/21 06/19/21 Rx .COMPLEX #90 tab Allergies Allergy/AdvReac Type Severity Reaction Status Date / Time Penicillins [PENICILLINS] Allergy Unknown Verified 06/19/21 04:55 Review of Systems Review of Systems Narrative: All other systems reviewed with the patient and are negative unless otherwise stated. Exam Vital Signs (past 8 hours): - 06/19/21 07:00 06/19/21 07:30 06/19/21 08:00 Temperature Pulse Rate 93 H 96 H 97 H Respiratory Rate 18 18 23 Blood Pressure 133/63 143/65 H Pulse Oximetry 95 96 96 06/19/21 09:05 06/19/21 09:26 06/19/21 11:14 Temperature 96.8 F L Pulse Rate 101 H 74 Respiratory Rate 16 Blood Pressure 149/76 H Pulse Oximetry 95 95 95 Oxygen Delivery Method Room Air Oxygen Flow Rate 0 Narrative Exam Narrative: GENERAL APPEARANCE: Well developed, well nourished, elderly female in no acute distress. Sitting upright in bedside chair. SKIN: Inspection of the skin reveals no rashes, ulcerations or petechiae. She has varicosities of her bilateral lower extremities. HEENT: Normocephalic atraumatic, extraocular muscles are intact, oropharynx is clear and mucous membranes are moist, neck is supple without adenopathy NECK: Supple and symmetric. There was no thyroid enlargement, and no tenderness, or masses were felt. CHEST: Normal AP diameter and normal contour without any kyphoscoliosis. LUNGS: Auscultation of the lungs revealed no wheezes, rhonchi, or rales. CARDIOVASCULAR: There was a regular rate and rhythm without any murmurs, gallops, rubs. Peripheral pulses were 2+ and symmetric. ABDOMEN: Soft and nontender with normal bowel sounds. No ascites was noted. MUSCULOSKELETAL: Mild R hip tenderness, tight paraspinal muscles, mild midline low back tenderness. No joint effusions EXTREMITIES: No cyanosis, clubbing. bilateral LE edema, L > R, with tenderness of calf bilaterally, worse on the L. NEUROLOGIC: Alert and oriented to name, place, month. strength equal and generally weak but +5/5 bilateral lower extremities. No deficits in sensation to light touch. Objective Labs Result Diagrams: 06/19/21 05:18 06/19/21 05:18 Labs: Laboratory Results - last 24 hr 06/19/21 06/19/21 06/19/21 05:18 05:18 05:18 WBC 7.5 RBC 3.75 L Hgb 11.3 L Hct 34.6 L MCV 92.3 MCH 30.1 MCHC 32.6 RDW 14.5 Plt Count 136 L Neut % (Auto) 74.8 Lymph % (Auto) 14.3 L [place] % (Auto) 8.5 Eos % (Auto) 2.0 Baso % (Auto) 0.4 Neut # (Auto) 5600 Lymph # (Auto) 1100 [place] # (Auto) 600 Eos # (Auto) 100 Baso # (Auto) 0 Sodium 138 Potassium 3.7 Chloride 106 Carbon Dioxide 23 BUN 32 H Creatinine 1.08 H Estimated GFR 48.2 L BUN/Creatinine Ratio 29.6 H Glucose 99 Lactate 0.8 Calcium 9.1 Total Bilirubin 1.7 H AST 57 H ALT 46 H Alkaline Phosphatase 79 Total Protein 6.7 Albumin 4.0 Globulin 2.7 Albumin/Globulin Ratio 1.5 Urine RBC Urine WBC Ur Transition Epith Cell Urine Bacteria Ur Culture Indicated? SARS-CoV-2 (PCR) 06/19/21 06/19/21 05:55 06:20 WBC RBC Hgb Hct MCV MCH MCHC RDW Plt Count Neut % (Auto) Lymph % (Auto) [place] % (Auto) Eos % (Auto) Baso % (Auto) Neut # (Auto) Lymph # (Auto) [place] # (Auto) Eos # (Auto) Baso # (Auto) Sodium Potassium Chloride Carbon Dioxide BUN Creatinine Estimated GFR BUN/Creatinine Ratio Glucose Lactate Calcium Total Bilirubin AST ALT Alkaline Phosphatase Total Protein Albumin Globulin Albumin/Globulin Ratio Urine RBC 1-5/hpf Urine WBC None seen Ur Transition Epith Cell 0-1/hpf Urine Bacteria None seen Ur Culture Indicated? Cult not indicated SARS-CoV-2 (PCR) Negative Assessment & Plan Assessment & Plan narrative: 1. Acute low back pain, decreased mobility - patient with worsening low back and right hip pain after a fall out of bed. Pain not improved with fentanyl in the ER, admitted for intractable back pain and decreased mobility. - pain is improved after arrival to the floor with lidocaine patch, robaxin, tylenol, and single opiate therapy. Try and limit opiate therapy given age. - PT/OT consultation - imaging shows L2 compression fracture of indeterminate age. No hip fractures. - consider MR imaging depending on pain control and mobility if concern for hip fracture remains. - check DVT study given bilateral calf tenderness, swelling and recent decreased mobility. - no neurological signs on exam to suggest spinal pathologies. 2. L2 lumbar compression fracture - continue pain management as noted above - continue PT/OT 3. HTN - continue home medications. Dispo: admit under obstervation Code: DNR, surrogate or son. POLST scanned into EMR DVT: Lovenox daily, pending DVT study as above I have utilized all available immediate resources to obtain, update, or review the patient's current medications. COVID-19 COVID-19 status: Negative Time Spent With Patient Critical Care time: I spent a total of [] minutes of critical care time on this patient's care today; this time is exclusive of procedural time. Quality MIPS - Admit I confirm the patient?s Advance Care Plan is present, Code status is documented, Surrogate decision maker is in patient?s record [If Yes, STOP here]: Yes
--- NOTE | 2021-06-19 14:40 | DI.US.S_ITS ---
PROCEDURE: US PERIPH VENOUS LOW EXTREM BI INDICATIONS: RULE OUT DEEP VEIN THROMBOSIS TECHNIQUE: Real-time imaging, as well as color and pulse Doppler interrogation, were performed of the deep veins of both legs from the inguinal ligament to the popliteal fossa. COMPARISON: None. FINDINGS: Right: The common femoral, femoral and popliteal veins are normally compressible, and free of intraluminal thrombus. Color and pulse Doppler demonstrate normal phasic intravascular flow. There is normal augmentation response to distal compression maneuver. Left: Left popliteal vein is not well visualized. The common common femoral and deep femoral veins are normally compressible and appear to be free of intraluminal thrombus. Color and pulse Doppler demonstrate normal phasic intravascular flow. There is normal augmentation response to distal compression maneuver. IMPRESSION: Limited exam with no sonographic evidence of DVT. Dictated by: Jaylen Brown M.D. on 06/19/2021 at 18:19 Approved by: Jaylen Brown M.D. on 06/19/2021 at 18:21
--- NOTE | 2021-06-19 18:23 | PC.NURSE ---
Addendum entered by Kely Billy R.N. 06/19/21 21:28: Lowe cath patent quintin urine w/o incidence. Addendum entered by Kely Billy R.N. 06/19/21 21:21: Pt resting at intervals throughout evening. Denies discomfort when asked HL intact/patent. condition remains essentially unchanged Call light w/in reach, bed alarm on for pt safety. Continue w/plan of care. Original Note: Pt back to bed after sitting in chair. SpO2 95% RA lungs clear/shallow HL RFA intact/patent Small dsg to cocci CDI Call light w/in reach, bed alarm on for pt safety.
[2021-06-20] VITALS (15 sets, daily range): BP systolic 136–170; BP diastolic 76–99; PULSE 84–98; RESP 16; TEMP 36.3–37.1; O2SAT 92–98
[2021-06-20] MEDS: ACETAMINOPHEN 325 MG TABLET 975 MG PO ×2 (09:33→15:41)
[2021-06-20] MEDS: methocarbamoL 500 MG TABLET PO ×2 (09:33→14:32)
[2021-06-20] MEDS: ENOXAPARIN 30 MG/0.3 ML SYRINGE SUBCUT (09:34)
--- NOTE | 2021-06-20 10:53 | CM.DANOTE ---
Addendum entered by Lorelei Rubin R.N. 06/20/21 15:35: Spoke to Mercedez at [facility]. Confirmed that she can accept patient tomorrow under COVID waiver. She did indicate that she needs a copy of patient's COVID vaccination so she can secure a bed, otherwise, she would not be able to accept her today. Had Casi print out her COVID vaccine information from the state. She had Moderna in September, second in Oct. Faxed over the information, and updated Mercedez at [facility]. Gave copy for Casi to scan. She should not need another COVID vaccine. Per patient's request, updated her , Alva. He was concerned about the cost if she has to stay in the hospital another day, but informed him she should be discharged tomorrow, which would be maximum day. Updated him about [facility]. Addendum entered by Lorelei Rubin R.N. 06/20/21 14:05: P.T, and O.T, is recommending [facility], for patient needs assist with transfers, and her will not be able to assist her. She is willing to go to rehab, if that's needed. Asked her if her would be ok with her there, and she stated, she would. She is hoping that care management can update her if she is accepted at a facility. Let her know that case management can do this. Called Mercedez at [facility] and asked her to review for possible COVID waive, as it is most likely that patient will be OBS status, but UR will still review today. Let Mercedez that patient will be ready tomorrow, if not today. Original Note: DCP: Case received, EMR reviewed and met with patient. Introduced self and role. Was able to obtain information regarding patient's baseline activity status, as well as her current living situation. DCP assessment completed with information currently available. Patient is an 85 year old female who admitted yesterday morning to the care of the hospitalist team. PCP: Dr. Ndiaye. Payer: confirmed: Medicare/[employer]ARP. Patient came to the hospital via ambulance secondary to increased back pain, and inability to ambulate secondary to a recent fall that occurred in her home. Patient holds current diagnosis of L2 compression fracture. She could possibly have MRI today. Met with patient in her room. She was sitting up in bed, alert and oriented, pleasant. Confirmed with her that she resides at [facility] here in [place], on the independent side, with her spouse, Miguel A. She stated that they have just moved in to [facility] last Saturday. She does not use any DME at baseline, and her and her do not drive. She did indicate that she has a son named Cristopher, who also lives in town. She mentioned that her spouse uses a cane at home, and does have history of vertigo. Discussed her going back to [facility], and her current mobility. According to P.T. notes yesterday, patient was requiring max assist, but they will be working with her today. Mentioned home health coming to her house to work with her therapy melo, she is not opposed to this, and would have no preferences upon agencies. Also mentioned the possibility, should she need [facility] for rehab, which she hopes she wouldn't need. There is the option of COVID waiver since patient could most likely be OBS, and she is Medicare. Patient is originally from [place], and has lived here since 1961. Her and her spouse just moved recently to [facility], independently, came from home. P: DCP to continue to follow. Patient could most likely be medically stable for discharge today. Will see how she does with P.T. today, and if home health is appropriate, can get a face to face signed. [facility] is the current agency listed on the calendar. Lorelei Rubin RN/Geriatric Aide Discharge Planning/Care Management Advanced directive, confirm from FAMILY Start: 06/19/21 10:07 Freq: Q24H Status: Active Protocol: Document 06/19/21 10:20 YAD (Rec: 06/19/21 10:20 YAD [id number]) Advance Directive, confirm on record Time 10:20 Person contacted patient Copy received No CM Discharge Assessment Start: 06/20/21 10:50 Freq: Status: Active Protocol: Document 06/20/21 10:50 VM (Rec: 06/20/21 10:53 VM [id number]) Discharge Planning Assessment Assigned [employer] Reports Developer Lorelei Rubin RN/Geriatric Aide Advance Directives? Yes: POLST Advance Directives on File No History Provided By Patient,Medical Record Prior Living Arrangements Detention Facility Household Members spouse Type of transporation used prior to Relies on Others admit Facility Name Admitted From: [facility] Willing to Return to Facility? Yes Independent with ADL's Yes Is patient alert and oriented? Yes Caregiver for Another No Patient/Family Preference Home with Home Health Barriers to Discharge Yes Comment Will depend if she can ambulate before going back to [facility] Discharge Plan Home Transportation Arrangement Children, she has a son that lives in town, does not drive. Additional Comment Have not yet initiated home health referral. Will see how she does today with therapy to see if she can go back to the facility. If patient plan is home with home health Not yet, can get hospitalist : Has signed face to face form been to sign if this is plan. completed? Whiteboard Updated in Patient Room with Yes name and ext. # of [employer] Reports Developer Review Status In Process Next Review Type Continued Stay Review
--- NOTE | 2021-06-20 11:23 | PT.IPTN ---
Physical Therapy Treatment Note M2 PT-IP Current Condition Start: 06/19/21 09:12 Freq: NEEDED Status: Active Protocol: Document 06/19/21 13:44 AW (Rec: 06/19/21 15:08 AW [id number]) Physical Therapy Current Condition Current Condition Evaluation Date 06/19/21 Treatment Diagnosis back pain; L2 compression fracture; impaired mobility and gait Onset Date 06/18/21 M3 PT-IP Subjective Start: 06/19/21 09:12 Freq: NEEDED Status: Active Protocol: Document 06/20/21 11:23 AB (Rec: 06/20/21 12:44 AB [id number]) Subjective Physical Therapy Visit Type Type Treatment Note Visit Start Time 11:23 Visit Stop Time 12:05 Total Visit Minutes [address] F[address] FIRER Visits 0 Physical Therapy Visit Comments Patient Comments agreeable to do PT Therapy Pain Assessment Pain When Pain Assessed During Mobility Location right hip Intensity 8 Scale Used Numeric (0 - 10) Description With Movement Pain Behaviors Guarding,Wincing Pain Management Techniques Distraction,Modification of Treatment,Re-positioning, Timing of Activity with Medications M4 PT-IP Mobility and Gait Start: 06/19/21 09:12 Freq: NEEDED Status: Active Protocol: Document 06/20/21 11:23 AB (Rec: 06/20/21 12:44 AB [id number]) PT-Bed Mobility Assessment Rolling Type of Rolling Log Rolling Level of Assist Maximal Assistance Supine to Sit Supine to Sit Maximum Assistance PT-Transfer Assessment Sit to and From Stand Sit to and from Stand Moderate Assistance,1 Person Assistance,Use of Upper Extremities Equipment Transfer Assistive Device Gait Belt,Front Wheeled Walker Orthotic/Prosthetic Devices or Brace: No Transfers Transfer Destination Chair Transfer Technique ambulated using FWW Transfer Ability Level of Assist Minimal Assistance,Moderate Assistance,1 Person Assistance ,Use of Upper Extremities Comments Mobility Comments educated pt on back precautions and log roll bed mobility. pt completed log roll supine to sit max A and max cues. c/o increase back pain with increase muscle guarding. pt was able to sit on EOB SBA. scooted to EOB max A and cues. completed sit to stand mod A and cues and ambulated to the chair using FWW ~ 12 ft mod A. increase posterior trunk LOB during standing and ambulation with max cues. completed sit to train station agent to mod A from chair. educated pt on COG and standing balance and use of FWW for support. pt tolerated standing ~ 30 sec FWW CGA and agreed to ambulate again and completed 35 ft using FWW min A and cues. agreed to sit on chair. positioned on chair. call light and table placed within reach. Gait Assessment Gait Gait Assistance Required: Minimum Assistance,Moderate Assistance,1 Person Assist Distance (Feet) 35 Able to Maintain Weight Bearing Status Yes During Gait Assistive Devices Assistive Device Gait Belt,Front Wheeled Walker Orthotic/Prosthetic Devices or Brace: No Gait Deviations General Gait Pattern Decreased Stride Length, Decreased Feet Clearance, Flexed Trunk,Step-to Gait Factors Limiting Gait Function Factors Limiting Gait Function Decreased Activity Tolerance, Decreased Strength,Limited Range of Motion,Pain,Poor Balance,Poor Safety Awareness Comments Gait Comments pt with increase thoracic kyphosis, decrease step length during ambulation with increase posterior LOB. M5 PT-IP Objective Assessments Start: 06/19/21 09:12 Freq: NEEDED Status: Active Protocol: Document 06/19/21 13:44 AW (Rec: 06/19/21 15:08 AW [id number]) Orientation Orientation/Cognition Level of Alertness Lethargic Orientation Name,Place,Situation Language Function Ability No Deficits Noted Safety Awareness Decreased Safety Awareness Gross Range of Motion Lower Extremity ROM Assessment Within Functional Limits Strength Lower Extremity Strength Assessment Bilaterally Impaired Hip 4-/5 Knee 4/5 Ankle 4+/5 Sensation Assessment Sensation Gross Sensation WNL Muscle Tone Muscle Tone WNL Yes M6 PT-IP Treatment Start: 06/19/21 09:12 Freq: NEEDED Status: Active Protocol: Document 06/20/21 11:23 AB (Rec: 06/20/21 12:44 AB [id number]) Physical Therapy Treatment Education Education Provided Precautions,Safety M7 PT-IP Assessment and Plan Start: 06/19/21 09:12 Freq: NEEDED Status: Active Protocol: Document 06/20/21 11:23 AB (Rec: 06/20/21 12:44 AB [id number]) PT Summary Assessment and Plan Potential Rehabilitation Potential Fair Summary Impairments Pain,ROM,Strength,Balance, Coordination,Sensation,Tone, Cognition,Bed Mobility, Transfers,Gait,Activity Tolerance Progress Towards Goals Slow Progress due to Pain,Slow Progress due to Activity Tolerance,Slow Progress - Other Assessment Summary pt requiring max A for bed mobility, min to mod A for ambulation using FWW but will require 24/ asssit at this time. pt stated that she just moved in at [facility] and does not have assistance at home. Pt's spouse will not be able to assist pt. pt will require SNF rehab at this time. will continue to assess progress. Goals Bed Mobility Goal Standby Assistance Transfer Goal Standby Assistance,Front Wheeled Walker Gait Goal Standby Assistance,Front Wheel Walker Gait Distance 150 Other Goals LTG: improve transfers and ambulation to SBA with LRAD or no AD Days to Meet Goals 10 Frequency of Treatment Frequency Of Treatment Once a Day Treatment Plan Physical Therapy Treatment Plan Bed Mobility Training,Transfer Training,Gait Training, Therapeutic Exercise,Balance Retraining,Discharge Planning, Hot or Cold Pack Precautions Lumbar Precautions Log Roll,No Twisting,Limit Bending,Lifting Restriction of 10 lbs Other Precautions falls Recommendations To Nursing Amount of Assist Needed 1 Person Assist Discharge Recommendations PT Discharge Recommendations SNF Rehab Transportation Needs at Discharge Private Vehicle,Wheelchair/ Cabulance
--- NOTE | 2021-06-20 14:24 | PC.NURSE ---
Patient A&Ox3, pleasant. Reports pain very minimal without movement but shoots to 9/10 when moving. Pt medicated prior to therapy with PRN pain meds, tylenol and robaxim. Pt remained alert throughout the day, not seeming to need prn oxycodone with pain well controlled while sitting up. Poor po intake, per family this is chronic with patient. Pt with Lowe in place dark yellow urine of 150cc onlyl this shift. MD notified and no new orders at this time. Continuous monitoring.VSS, afebrile on RA.
--- NOTE | 2021-06-20 14:27 | OT.IP.EVAL ---
Past Medical History (Last Reviewed 06/19/21 @ 14:39 by Jose Pryor DO) Cataracts, bilateral (~2013) CKD (chronic kidney disease) stage 3, GFR 30-59 ml/min Fatigue Fractures (2000) Glaucoma (~2016) Gout (2001) History of surgery on arm (~2000) Hypertension (Unknown) Osteoporosis (~1998) POLST (Physician Orders for Life-Sustaining Treatment) Swelling of both ankles Surgical History (Last Reviewed 06/19/21 @ 14:39 by Jose Pryor DO) History of surgery on arm (~2000) History of tonsillectomy (1961) Status post cholecystectomy (1995) Occupational Therapy Inpatient Evaluation/Re-Eval M1 PT/OT-IP Prior Functional Status Start: 06/19/21 09:12 Freq: NEEDED Status: Active Protocol: Document 06/20/21 15:32 [facility] (Rec: 06/20/21 15:56 [facility] [id number]) Medical Review Prior Functional Status Medical History Reviewed Yes Communication Pt is an effective verbal communicator. She presents with weak voice on evaluation. Mobility and Gait Pt states she is independently mobile and does not use any assisted device Activities of Daily Living and IADL's Pt states her assist to help get on her compression stockings and assist to help pull down her dress once she get it over her head. Social History Household Members spouse Living Arrangements Group Home Facility Number of Stairs To Enter/Railing? Pt uses elevator to access her apartment. Home Equipment Grab Bars Near Toilet,Grab Bars In Shower Additional Social History Comment Pt and her spouse, Maksim, moved to [facility], [place] within the past month. They are on the independent side and receive no assist from facility staff. Pt's spouse, Maksim, states he has some memory issues. He uses bilateral walking sticks for stability. M2 OT-IP Current Condition Start: 06/20/21 15:31 Freq: Status: Active Protocol: Document 06/20/21 15:32 [facility] (Rec: 06/20/21 15:56 [facility] [id number]) Occupational Therapy Current Condition Current Condition Evaluation Date 06/20/21 Treatment Diagnosis L2 compression fracture, decreased mobility M3 OT- IP Subjective and Pain Start: 06/20/21 15:31 Freq: Status: Active Protocol: Document 06/20/21 15:32 [facility] (Rec: 06/20/21 15:56 [facility] [id number]) OT- Subjective Occupational Therapy Visit Type Type Initial Evaluation Visit Start Time 13:40 Visit Stop Time 14:27 Total Visit Minutes 47 Occupational Therapy Visit Comments Patient Comments Pt agreed to get up to the sink to wash up. Patient/Caregiver Goals To get stronger and go to rehab prior to going home. OT Pain Assessment Pain When Pain Assessed During Mobility Pain Present Pain Present Pain Reported Location Lower Back Intensity 9 Scale Used Numeric (0 - 10) M4 OT- IP ADL's Start: 06/20/21 15:31 Freq: Status: Active Protocol: Document 06/20/21 15:32 [facility] (Rec: 06/20/21 15:56 [facility] [id number]) OT [id number]-Mvyytlp General Evaluation Self-Feeding Ability Standby Assistance Areas Needing Assistance Opening Containers Comments OT Self-Feeding Comments NOt at meal time, but needing assist for set-up. OT ADL-Grooming General Evaluation Grooming Ability Standby Assistance Areas Needing Assistance Retrieving/Set-up of Grooming Items Comments OT Grooming Comments Assist for set-up and CGA while standing at the sink from the recliner. OT ADL-Oral Care General Eval Oral Care Ability Independent OT ADL-Dressing General Eval Lower Body Dressing Ability Maximum Assistance Comments OT Dressing Comments Pt complaining of tightness and not able to bend over to do LB dressing needs at this time. Pt shown use of thrill performer and sock aid to assist to increased her independence with LB dressing needs and will continue to need more practice. OT ADL-Toileting General Evaluation Toileting Ability Total Assistance Comments OT Toileting Comments Pt has salmeron in place. OT ADL-Bathing Bathing Type Bathing Type Sponge Bath Comments OT Bathing Comments Pt able to stand to wash her pericare needs with use of one hand on the counter for balance and also CGA from therapist while standing from the recliner behind her. M5 OT- IP IADL's Start: 06/20/21 15:31 Freq: Status: Active Protocol: Document 06/20/21 15:32 [facility] (Rec: 06/20/21 15:56 [facility] [id number]) OT-Instrumental Activities of Daily Living Home Safety Awareness Awareness of Need for Assistance at Home Good Awareness Home Safety Comments Pt a bit forgetful and not thinking well at this time and would need assist for all needs at this time. Prior pt was independently able to care for herself. M6 OT- IP Functional Cognition Start: 06/20/21 15:31 Freq: Status: Active Protocol: Document 06/20/21 15:32 [facility] (Rec: 06/20/21 15:56 [facility] [id number]) Cognitive Factors Limiting Selfcare Function Cognitive Ability Level of Alertness Alert Patient Orientation Name,Place,Situation Attention Span Ability Capable of Focused Attention, Capable of Sustained Attention Ability to Follow Commands Able to Follow One Step Commands Safety Awareness No Deficits Noted Cognitive Comments Cognitive Assessment Comments Pt needing visual cues to follow for cues on weight shifting. Pt needing simple commands to follow. To do a formal cognitive assessment tomorrow with pt. Pt needing cues for safety for FWW management and also where to place her hands to assist to come to stand. OT- Vision and Hearing OT- Hearing Assessment OT- Hearing Assessment WFL OT- Vision Assessment Vision Assessment Comments Pt is a little [employer] [place]. M7 OT- IP Mobility and Balance Start: 06/20/21 15:31 Freq: Status: Active Protocol: Document 06/20/21 15:32 [facility] (Rec: 06/20/21 15:56 [facility] [id number]) OT- Bed Mobility Assessment Sit to Supine Sit to Supine Assist Maximum Assistance,1 Person Assistance OT-Transfer Assessment Sit to and From Stand Sit to and from Stand Minimal Assistance,Moderate Assistance Transfers Transfer Ability Minimal Assistance Technique Transfer Destination Bed,Chair Transfer Technique Stand Step Pivot Devices Transfer Assistive Devices Gait Belt,Front Wheeled Walker Comments Mobility Comments MIN to MODA to stand pending of the level of surface standing from. OT- Gait Assessment Comments Gait Ability Comments Transfer only at this time. OT- Balance Assessment Sitting Balance and Reactions Static Sitting Balance Ability Good Dynamic Sitting Balance Ability Fair Standing Balance and Reactions Static Standing Balance Ability Fair Dynamic Standing Balance Ability Poor M8 OT- IP Objective Assessments Start: 06/20/21 15:31 Freq: Status: Active Protocol: Document 06/20/21 15:32 [facility] (Rec: 06/20/21 15:56 [facility] [id number]) OT Gross Range of Motion Upper Extremity Range of Motion Assessment Bilaterally Impaired ROM Impairments Pt has flexed posture at her neck and shoulders and BUE 0-90 for shoulder flexion. OT Strength Upper Extremity Strength Assessment Bilaterally Impaired OT- Coordination Assessment Comments Coordination Comments Decreased to open packages due to arthritic changes and weakness in her hands. OT-Muscle Tone Assessment Muscle Tone WNL Yes M9 OT- IP Assessment and Plan Start: 06/20/21 15:31 Freq: Status: Active Protocol: Document 06/20/21 15:32 [facility] (Rec: 06/20/21 15:56 [facility] [id number]) OT Summary Assessment and Plan Potential Rehabilitation Potential Good Analytic Complexity at Evaluation Moderate Summary OT Impairments Pain,Range of Motion,Strength, Balance,Coordination, Functional Cognition, Functional Mobility,Grooming, Dressing,Toileting,Bathing, Toilet Transfers,Shower Transfers,Activity Tolerance Progress Towards Goals Slow Progress due to Medical Issues,Slow Progress due to Activity Tolerance,Slow Progress due to Cognition Assessment Summary Pt MOD complexity and here due to L2 compressing fracture and her main barrier is pain nd now needing assist for ADl and mobility needs. Pt's uses walking sticks and has memory issues and therefore pt realizes it would best to go to skilled rehab prior to going home. Pt is very cooperative. pleasant and motivated to get better. Goals Grooming Goal Independent Dressing Goal Minimal Assistance Toileting Goal Independent Bathing Goal Independent Toilet Transfer Goal Independent Shower Transfer Goal Independent Days to Meet Goals 15 Frequency of Treatment Frequency Of Treatment Once a Day Treatment Plan OT Treatment Plan ADL Training,Functional Cognition Training,Functional Mobility,Patient/Family Education,Discharge Planning Other Treatment Recommendations and Next shower,SLUMS Treatment Focus Discharge Recommendations OT Discharge Recommendations SNF Rehab Transportation Needs at Discharge Wheelchair/Cabulance
--- NOTE | 2021-06-20 15:04 | P.PN_ITS ---
Subjective Subjective Date Patient Seen: 06/20/21 Time Patient Seen: 08:00 Interval history: Pain is improved today. However, her pain is worse with activity and she has not been out of bed yet. Exam Vital Signs (past 8 hours): - 06/20/21 08:00 06/20/21 09:38 06/20/21 10:00 Temperature 97.5 F L Pulse Rate 98 H Respiratory Rate 16 Blood Pressure 157/88 H Pulse Oximetry 95 96 96 06/20/21 12:00 06/20/21 14:00 Temperature 97.6 F Pulse Rate 92 H Respiratory Rate 16 Blood Pressure 136/80 Pulse Oximetry 96 96 Oxygen Delivery Method Room Air Oxygen Flow Rate 0 Narrative Exam Narrative: GENERAL APPEARANCE: no acute distress SKIN: no rashes noted LUNGS: clear bilaterally CARDIOVASCULAR: regular rate and rhythm with no murmurs ABDOMEN: soft, nontender, nondistended, no organomegaly, normal bowel sounds MUSCULOSKELETAL: Mild R hip tenderness, tight paraspinal muscles, tenderness over lower spine NEUROLOGIC: Alert and oriented to name, place, month. strength equal and generally weak but +5/5 bilateral lower extremities. No deficits in sensation to light touch. Objective Labs Result Diagrams: 06/19/21 05:18 06/19/21 05:18 [facility] Medical History Cataracts, bilateral (~2013) CKD (chronic kidney disease) stage 3, GFR 30-59 ml/min Fatigue Fractures (2000) Glaucoma (~2017) Gout (2001) Hypertension (Unknown) Osteoporosis (~1998) POLST (Physician Orders for Life-Sustaining Treatment) Swelling of both ankles Surgical History History of surgery on arm (~2000) History of tonsillectomy (1961) Status post cholecystectomy (1995) Family History Father No problems noted. Mother Cancer Social History household members: spouse Smoking Status: Never smoker Assessment & Plan Assessment & Plan narrative: 1. Acute low back pain, decreased mobility ?- patient with worsening low back and right hip pain after a fall out of bed. Pain not improved with fentanyl in the ER, admitted for intractable back pain and decreased mobility. ?- pain is improved after arrival to the floor with lidocaine patch, robaxin, tylenol, and single opiate therapy. Try and limit opiate therapy given age. ?- PT/OT consultation ?- imaging shows L2 compression fracture of indeterminate age. No hip fractures. ?- no evidence of DVT ?- no neurological signs on exam to suggest spinal pathologies. 2. L2 lumbar compression fracture ?- continue pain management as noted above ?- continue PT/OT 3. HTN ?- continue home medications. Dispo: patient is medically stable for discharge, she is pending PT/OT evaluation to determine if discharge home vs snf Time Spent With Patient Critical Care time: I spent a total of [] minutes of critical care time on this patient's care today; this time is exclusive of procedural time.
[2021-06-21 01:05] VITALS: BP 160/94; PULSE 95; RESP 16; TEMP 36.2; O2SAT 92
[2021-06-21 04:56] VITALS: BP 180/76; PULSE 87; RESP 16; TEMP 36.3; O2SAT 95
[2021-06-21 08:00] VITALS: BP 151/87; PULSE 81; RESP 16; TEMP 35.7; O2SAT 98
--- NOTE | 2021-06-21 08:18 | PM.DS.1 ---
History of Present Illness History of Present Illness Chief complaint: back pain Narrative: This is an 85-year-old female with a past medical history of hypertension, resident of [facility] who presented to the emergency room by ambulance for gradually worsening right-sided hip and low back pain over the past 5 days.? Patient admits that during her sleep she ruled out of bed and landed on her right side.? Over the course of following 5 days she has had increasing low back and right-sided pain.? Her pain worsens with motion.? She denies any loss of bowel or bladder and denies any numbness or tingling or weakness in her lower extremities.? She denies any recent fever, chills, dysuria, urinary frequency, dizziness, chest pain, shortness of breath, palpitations.? She was having a difficult time walking and was in too much pain so decided to come to the emergency room. In the emergency room she was given fentanyl but was unable to ambulate, the patient was admitted for further evaluation.? Initial vital signs showed a mild hypertension but were otherwise unremarkable.? Laboratory evaluation was also unremarkable.? She does have a mild elevation in her T bili and transaminase levels, though these have been elevated in the past.? Urinalysis was not indicative of infection.? COVID-[address] testing [address] of her pelvis did not show any occult fractures.? On radiographs of her lumbar spine she was noted to have a compression fracture of L2 of indeterminate age. Discharge Providers Provider Date of admission: 06/19/21 08:12 Discharge Date: 06/21/21 Primary care physician: James Ndiaye DO Consults: 06/19/21 09:03 Consult to Occupational Therapy Evaluate & Treat Comment: Physician Instructions: Evaluate and treat Consult to Physical Therapy Evaluate & Treat Comment: Physician Instructions: Evaluate and Treat 06/19/21 10:05 Consult to Pastoral Services Routine Comment: Pt request Discharge provider: David Agustin MD Summary Hospital Course Discharge Diagnosis: 1. Acute low back pain 2. L2 lumbar compression fracture 3. HTN Hospital Course: Ms. Lane came to the hospital after a fall out of bed with low back pain and hip pain. She had imaging done that showed no hip fracture, she did have L2 compression fracture. She was initially in significant pain, but improved with medications. She was able to work with therapy but quite limited in her activity. She was discharged to SNF with pain medications and to get PT/OT Exam Vital Signs (past 8 hours): Oxygen Delivery Method Room Air Oxygen Flow Rate 0 Narrative Exam Narrative: GENERAL APPEARANCE: no acute distress SKIN: no rashes noted LUNGS: clear bilaterally CARDIOVASCULAR: regular rate and rhythm with no murmurs ABDOMEN: soft, nontender, nondistended, no organomegaly, normal bowel sounds MUSCULOSKELETAL: Mild R hip tenderness, tight paraspinal muscles, tenderness over lower spine NEUROLOGIC: Alert and oriented to name, place, month. strength equal and generally weak but +5/5 bilateral lower extremities. No deficits in sensation to light touch. Objective Labs Result Diagrams: 06/19/21 05:18 06/19/21 05:18 [facility] Medical History Cataracts, bilateral (~2013) CKD (chronic kidney disease) stage 3, GFR 30-59 ml/min Fatigue Fractures (2000) Glaucoma (~2016) Gout (2001) Hypertension (Unknown) Osteoporosis (~1998) POLST (Physician Orders for Life-Sustaining Treatment) Swelling of both ankles Surgical History History of surgery on arm (~2000) History of tonsillectomy (1961) Status post cholecystectomy (1995) Family History Father No problems noted. Mother Cancer Social History household members: spouse Smoking Status: Never smoker Discharge Plan Discharge Plan Patient Disposition: SNF Provider Discharge Comment: Ms. Lane came in to the hospital after a fall. She had back pain. She was found to have an L2 compression fracture. She had some hip but xray and CT scan showed no fracture. She worked with PT and was in pain and unsteady. She was discharged to SNF for further threapy. I certify the postop hospital mcfp care is medically necessary on a continuing basis for any conditions for which he/ she received care during this hospitalization.: Yes The receiving facility has agreed to accept transfer and provide medical treatment.: Yes Discharge orders & Medications Prescriptions: New acetaminophen 325 mg Tablet 975 mg PO Q8H PRN (Reason: Fever/Mild Pain (1-3)) Qty: 10 RF: 0 lidocaine [Lidocaine Pain Relief] 4 % adhesive patch,medicated 1 patch topical DAILY PRN (Reason: pain) Qty: 10 RF: 0 methocarbamol 500 mg Tablet 500 mg PO QID PRN (Reason: Muscle Spasm) Qty: 10 RF: 0 oxycodone 5 mg Tablet 5 mg PO Q6HR PRN (Reason: Pain, Moderate (4-6)) Qty: 10 RF: 0 Continued latanoprost 0.005 % drops 1 drp OPHTH HS Qty: 0 RF: 0 timolol maleate [Timoptic] 0.25 % drops 1 drp OPHTH DAILY Qty: 0 RF: 0 glucosamine sulfate [Genicin] 500 MG capsule 500 mg PO DAILY Qty: 0 RF: 0 [Eye-Protect] bottle See Rx Instructions .ROUTE .COMPLEX PRN (Reason: Eye Irritation) Qty: 0 RF: 0 amlodipine 2.5 mg tablet See Rx Instructions .ROUTE .COMPLEX Qty: 90 RF: 0 Follow up/Referrals: James Ndiaye DO [Primary Care Provider] - Discharge Health Status Multidrug resistant organism: No MDRO Diet/Activity/Treatments Diet: Regular Liquid consistency: Normal/Thin Food texture: Regular [facility] Rehab type: Physical therapy and Occupational therapy Discharge Data Primary Care Provider: James Ndiaye Attending Provider: Susannah Fraga [facility] The patient has current or prior documentation of left ventricular ejection fraction (LVEF) less than 40%, or moderate or severely depressed left ventricular systolic function.: No
[2021-06-21 09:15] VITALS: O2SAT 96
[2021-06-21] MEDS: ENOXAPARIN 30 MG/0.3 ML SYRINGE SUBCUT (09:50)
[2021-06-21] MEDS: LIDOCAINE PATCH 1 EACH ADH..PATCH TOP (09:50)
--- NOTE | 2021-06-21 10:32 | PC.NURSE ---
Assess- Patient is alert and oriented x3, she is a max assist to turn. Patient has some bruising to her r.side, lidocaine patch applied to r.back. just left. Patient is going to be going to a SNF, have not heard when yet. She is alert and oriented x3, salmeron in place and putting out yellow urine.
--- NOTE | 2021-06-21 10:59 | PT.IPTN ---
Physical Therapy Treatment Note M2 PT-IP Current Condition Start: 06/19/21 09:12 Freq: NEEDED Status: Discharge Protocol: Document 06/21/21 10:30 SP (Rec: 06/21/21 14:36 SP [id number]) Physical Therapy Current Condition Current Condition Evaluation Date 06/19/21 Treatment Diagnosis back pain; L2 compression fracture; impaired mobility and gait Onset Date 06/18/21 M3 PT-IP Subjective Start: 06/19/21 09:12 Freq: NEEDED Status: Discharge Protocol: Document 06/21/21 10:30 SP (Rec: 06/21/21 14:36 SP [id number]) Subjective Physical Therapy Visit Type Type Treatment Note Visit Start Time 10:30 Visit Stop Time 10:59 Total Visit Minutes 29 Notes in room when arrived decided to leave before mobility, VP SECURITIES asked pt if would like to stay and see how progressing, stated no is ok for him to leave and can call and tell him how doing. Dr Agustin entered room during therapy, pt seated at EOB. Vitals taken during tx: supine: BP 162/89 HR 89 bpm. post mobility: BP 137/69 HR 109bpm denied lightheadedness or dizziness. Number of VP SECURITIES Visits 1 Physical Therapy Visit Comments Patient Comments agreeable to do PT Patient Goals Get stronger to go home when able. Therapy Pain Assessment Pain When Pain Assessed During Mobility Pain Present Pain Present Pain Reported Location right hip Intensity 5 Scale Used Numeric (0 - 10) Description With Movement Pain Behaviors Facial Grimacing Pain Management Techniques Distraction,Modification of Treatment,Re-positioning, Timing of Activity with Medications M4 PT-IP Mobility and Gait Start: 06/19/21 09:12 Freq: NEEDED Status: Discharge Protocol: Document 06/21/21 10:30 SP (Rec: 06/21/21 14:36 SP [id number]) PT-Bed Mobility Assessment Rolling Type of Rolling Log Rolling Level of Assist Moderate Assistance,1 Person Assistance Supine to Sit Supine to Sit Maximum Assistance,1 Person Assistance,Bedrails Scooting Scooting to Edge of Bed Moderate Assistance PT-Transfer Assessment Sit to and From Stand Sit to and from Stand Minimal Assistance,Moderate Assistance,1 Person Assistance ,Use of Upper Extremities Equipment Transfer Assistive Device Gait Belt,Front Wheeled Walker Orthotic/Prosthetic Devices or Brace: No Transfers Transfer Destination Chair Transfer Technique ambulated using FWW Transfer Ability Level of Assist Contact Guard Assistance, Minimal Assistance,1 Person Assistance,Use of Upper Extremities Comments Mobility Comments Elevated supine when arrived. VP SECURITIES instructed BLE exercises pre mobiltiy: AP, heel slide, hip abd x5 each BLE AROM. LR L w/ use of bed rail Mod A x1, L SL >sit Max A x1 for trunk righting to sit, Mod A for scoot to EOB w/ cues BUE WB on bed. Seated at EOB CGA> SBA, Dr Agustin entered room and discussed her medical findings , meds for pain needed and importance of mobility with therapy, DC to SNF for further functional strengthening to be able to work toward going home, pt agreeable and verbalized understanding. Pt completed sit>stand Mod> Min A x1, SPT to chair using FWW, cues for center self and back up fully front chair, reach back Min A for slow descent into chair. Pt rested in chair 3 min. Sit>stand Min A and gait around room CGA- 5%A w/ FWW approx 35 ft total, occasional retro wt shift but self corrections uncued, approx 30 ft before stated tired, SPT in front chair good self center and cue reach back BUE 10% A slow sit into chair. Self scoot back in chair. Cued LE ex LAQ to help strength and circulation. Pt had call light and all needs in reach w/ chair alarm donned before left. Pt would benefit from continued skilled therapy for progress in funcional strength. Pt's can not assist her, uses B walking poles for mobility. Gait Assessment Gait Gait Assistance Required: Minimum Assistance,1 Person Assist Distance (Feet) 30 Able to Maintain Weight Bearing Status Yes During Gait Assistive Devices Assistive Device Gait Belt,Front Wheeled Walker Orthotic/Prosthetic Devices or Brace: No Gait Deviations General Gait Pattern Decreased Stride Length, Decreased Feet Clearance, Flexed Trunk Factors Limiting Gait Function Factors Limiting Gait Function Decreased Activity Tolerance, Decreased Strength,Limited Range of Motion,Pain,Poor Balance,Poor Safety Awareness Comments Gait Comments pt with increase thoracic kyphosis, improved small base receiprocal stepping during ambulation, retro wt shift self corrections. Stair Climbing Assessment Comments Stair Climbing Comments Not assessed. Pt uses elevator at senior living facility. PT-Balance Assessment Sitting Balance and Reactions Static Sitting Balance Ability Good Dynamic Sitting Balance Ability Fair Standing Balance and Reactions Static Standing Balance Ability Fair Dynamic Standing Balance Ability Fair Device Used FWW M5 PT-IP Objective Assessments Start: 06/19/21 09:12 Freq: NEEDED Status: Discharge Protocol: Document 06/19/21 13:44 AW (Rec: 06/19/21 15:08 AW [id number]) Orientation Orientation/Cognition Level of Alertness Lethargic Orientation Name,Place,Situation Language Function Ability No Deficits Noted Safety Awareness Decreased Safety Awareness Gross Range of Motion Lower Extremity ROM Assessment Within Functional Limits Strength Lower Extremity Strength Assessment Bilaterally Impaired Hip 4-/5 Knee 4/5 Ankle 4+/5 Sensation Assessment Sensation Gross Sensation WNL Muscle Tone Muscle Tone WNL Yes M6 PT-IP Treatment Start: 06/19/21 09:12 Freq: NEEDED Status: Discharge Protocol: Document 06/21/21 10:30 SP (Rec: 06/21/21 14:36 SP [id number]) Physical Therapy Treatment Exercises Exercises Ankle Pumps,Heel Slides,Supine Hip Abduction,Seated Knee Flexion/Extension Education Education Provided Precautions,Safety M7 PT-IP Assessment and Plan Start: 06/19/21 09:12 Freq: NEEDED Status: Discharge Protocol: Document 06/21/21 10:30 SP (Rec: 06/21/21 14:36 SP [id number]) PT Summary Assessment and Plan Potential Rehabilitation Potential Fair Status of Condition at Evaluation Evolving Summary Impairments Pain,ROM,Strength,Balance, Coordination,Sensation,Tone, Cognition,Bed Mobility, Transfers,Gait,Activity Tolerance Progress Towards Goals Progressing Toward Goals,Slow Progress due to Activity Tolerance Assessment Summary Pt required Max A bed mob, Min -Mod sit<>Stand, gait CG- Min A using FWW. Safety cues for backing during pivot and proper hand placement for safety. Pt would benefit from continued skilled therapy for progress in functional strength and mobility. Goals Bed Mobility Goal Standby Assistance Transfer Goal Standby Assistance,Front Wheeled Walker Gait Goal Standby Assistance,Front Wheel Walker Gait Distance 150 Other Goals LTG: improve transfers and ambulation to SBA with LRAD or no AD Days to Meet Goals 10 Frequency of Treatment Frequency Of Treatment Once a Day Treatment Plan Physical Therapy Treatment Plan Bed Mobility Training,Transfer Training,Gait Training, Therapeutic Exercise,Balance Retraining,Discharge Planning, Hot or Cold Pack Other Recommendations and Next Treatment bed mob, transfers, gait using Focus FWW and progress LRAD. Precautions Lumbar Precautions Log Roll,No Twisting,Limit Bending,Lifting Restriction of 10 lbs Other Precautions falls Recommendations To Nursing Amount of Assist Needed 1 Person Assist Discharge Recommendations PT Discharge Recommendations SNF Rehab Equipment Needed for Home Before FWW if not safe no AD prior to Discharge DC home. Defer to rehab facility. Transportation Needs at Discharge Private Vehicle,Wheelchair/ Cabulance
--- NOTE | 2021-06-21 11:51 | CM.DPC ---
DCP Discharge SNF Per MD, pt is medically stable to d/c to SNF today and no identified barriers to discharge. SCOTT received call from January at [facility] confirming they could still accept pt today and provide transport around [id number] and they received the fax of confirmation of COVID vaccination and COVID neg swab is still within the appropriate timeframe. SCOTT faxed PASRR, med rec, script, MD orders, COVID neg to [facility] to review. SCOTT called pt's spouse as he went home for the day and updated on d/c and time of transport and provided contact info for [facility] for setting up visitation for pt at their facility. Spouse still agreeable with d/c. SCOTT updated RN who confirms she will let pt know the time. SCOTT updated WIRE STRAIGHTENER and pv installer tech. Plan: Patient to d/c to [facility] today around 1330 via facility van prior to safe return home with spouse. JIM Loyola
--- NOTE | 2021-06-21 12:20 | OT.IP.TRT ---
Occupational Therapy Treatment Note M2 OT-IP Current Condition Start: 06/20/21 15:31 Freq: Status: Active Protocol: Document 06/20/21 15:32 [facility] (Rec: 06/20/21 15:56 [facility] [id number]) Occupational Therapy Current Condition Current Condition Evaluation Date 06/20/21 Treatment Diagnosis L2 compression fracture, decreased mobility M3 OT- IP Subjective and Pain Start: 06/20/21 15:31 Freq: Status: Active Protocol: Document 06/21/21 12:24 [facility] (Rec: 06/21/21 12:44 [facility] [id number]) OT- Subjective Occupational Therapy Visit Type Type Treatment Note Visit Start Time 11:05 Visit Stop Time 12:20 Total Visit Minutes 75 Occupational Therapy Visit Comments Patient Comments Pt agreed to shower and take a cognitive assessment. Patient/Caregiver Goals To go to rehab prior to going home. OT Pain Assessment Pain When Pain Assessed During Weight Bearing Pain Present Pain Present Pain Reported Location right hip Intensity 9 Scale Used Numeric (0 - 10) M4 OT- IP ADL's Start: 06/20/21 15:31 Freq: Status: Active Protocol: Document 06/21/21 12:24 [facility] (Rec: 06/21/21 12:44 [facility] [id number]) OT [facility]-[id number]-[id number] General Evaluation Self-Feeding Ability Standby Assistance Areas Needing Assistance Opening Containers OT ADL-Grooming Comments OT Grooming Comments Not performed. OT ADL-Dressing General Eval Lower Body Dressing Ability Maximum Assistance Comments OT Dressing Comments Assist for socks, to thread the brief over the catheter and her feet and assist to the brief up over her hips. Pt issued LB dressing to practice in rehab as pt too tired to practice after showering. OT ADL-Toileting General Evaluation Toileting Ability Total Assistance Comments OT Toileting Comments Pt has salmeron in place. OT ADL-Bathing Bathing Type Bathing Type Shower General Evaluation Bathing Ability Maximal Assistance Areas Needing Assistance Wash/Dry Back,Wash/Dry Lower Extremities Comments OT Bathing Comments Due to pain , pt needing assist for LB showering needs in addition to her back. Pt needing MODA to come to stand so able to hold to grab bar while standing with CGA. M5 OT- IP IADL's Start: 06/20/21 15:31 Freq: Status: Active Protocol: Document 06/20/21 15:32 [facility] (Rec: 06/20/21 15:56 [facility] [id number]) OT-Instrumental Activities of Daily Living Home Safety Awareness Awareness of Need for Assistance at Home Good Awareness Home Safety Comments Pt a bit forgetful and not thinking well at this time and would need assist for all needs at this time. Prior pt was independently able to care for herself. M6 OT- IP Functional Cognition Start: 06/20/21 15:31 Freq: Status: Active Protocol: Document 06/21/21 12:24 [facility] (Rec: 06/21/21 12:44 [facility] [id number]) Cognitive Factors Limiting Selfcare Function Cognitive Ability Memory Description Short Term Impaired Cognitive Tests SLUMS Pt scored 17/30 on SLUMS, however [place] in not her [place] language. Pt able to recall 13/15 animals after one minute, able to recall 2/5 words after time passed, not able to states a 4 digit number backwards, not able to draw the hour hands on the clock correctly after time given. Pt initially shiela an X for the number eight and then able to correct herself after having her check her work. Pt able to answer 1/4 questions right after paragraph read. Cognitive Comments Cognitive Assessment Comments Pt's SLUMS score implies dementia however [place] is not her [place] language. Pt needing simple concrete commands to follow for FWW safety and proper cues for hand placement on the recliner and FWW. When asking if pt had to use the bathroom, pt states yes, however forgot that she had a catheter in. VC to keep her feet apart wider when coming to stand and pt tends to keep her feet together. M7 OT- IP Mobility and Balance Start: 06/20/21 15:31 Freq: Status: Active Protocol: Document 06/21/21 12:24 [facility] (Rec: 06/21/21 12:44 [facility] [id number]) OT-Transfer Assessment Sit to and From Stand Sit to and from Stand Moderate Assistance Transfers Transfer Ability Contact Guard Assistance, Minimal Assistance Technique Transfer Destination Bed,Chair,Shower Stall Devices Transfer Assistive Devices Gait Belt,Front Wheeled Walker Comments Mobility Comments MODA to stand. FOZIA with FWW to help step over the threshold of the shower. OT- Gait Assessment Comments Gait Ability Comments CGA with FWW for level surfaces in the rrom. OT- Balance Assessment Sitting Balance and Reactions Static Sitting Balance Ability Good Dynamic Sitting Balance Ability Fair Standing Balance and Reactions Static Standing Balance Ability Fair Dynamic Standing Balance Ability Poor M8 OT- IP Objective Assessments Start: 06/20/21 15:31 Freq: Status: Active Protocol: Document 06/20/21 15:32 [facility] (Rec: 06/20/21 15:56 [facility] [id number]) OT Gross Range of Motion Upper Extremity Range of Motion Assessment Bilaterally Impaired ROM Impairments Pt has kypohotic posture and BUE 0-90 for shoulder flexion. OT Strength Upper Extremity Strength Assessment Bilaterally Impaired OT- Coordination Assessment Comments Coordination Comments Decreased to opne packages due to athritic achanges and weakness in her hands. OT-Muscle Tone Assessment Muscle Tone WNL Yes M9 OT- IP Assessment and Plan Start: 06/20/21 15:31 Freq: Status: Active Protocol: Document 06/21/21 12:24 [facility] (Rec: 06/21/21 12:44 [facility] [id number]) OT Summary Assessment and Plan Potential Rehabilitation Potential Good Analytic Complexity at Evaluation Moderate Summary OT Impairments Pain,Range of Motion,Strength, Balance,Coordination, Functional Cognition, Functional Mobility,Grooming, Dressing,Toileting,Bathing, Toilet Transfers,Shower Transfers,Activity Tolerance Progress Towards Goals Progressing Toward Goals Assessment Summary Pt able to tolerate showering today. Pt still needing MODA to stand and assist for all LB dressing needs due to her pain. Pt issued LB dressing equipment so able to use at rehab and practice. Pt scored 17/30 on the SLUMS today, however questionable whether she is at her baseline. Pt going to skilled rehab later today. Goals Grooming Goal Independent Dressing Goal Minimal Assistance Toileting Goal Independent Bathing Goal Independent Toilet Transfer Goal Independent Shower Transfer Goal Independent Days to Meet Goals 14 Frequency of Treatment Frequency Of Treatment Once a Day Treatment Plan OT Treatment Plan ADL Training,Functional Cognition Training,Functional Mobility,Patient/Family Education,Discharge Planning Discharge Recommendations OT Discharge Recommendations SNF Rehab Transportation Needs at Discharge Wheelchair/Cabulance
== END 2021-06-21 13:58 ==
LOC: ED 07:36 → AC 10:15
PROVIDERS: Admitting Provider Internal Medicine; Emergency Provider Emergency Medicine; PCP Family Medicine; Referring Provider Emergency Medicine; Visit Provider Internal Medicine
DX: S32.020A Wedge compression fracture of second lumbar vertebra, initial encounter for closed fracture (principal); M54.50 Low back pain, unspecified; W06.XXXA Fall from bed, initial encounter; Y92.092 Bedroom in other non-institutional residence as the place of occurrence of the external cause; I12.9 Hypertensive chronic kidney disease with stage 1 through stage 4 chronic kidney disease, or unspecified chronic kidney disease; N18.30 Chronic kidney disease, stage 3 unspecified; M81.0 Age-related osteoporosis without current pathological fracture; Z20.822 Contact with and (suspected) exposure to COVID-19
CPT/HCPCS: 36415; 72100; 72192; 80053; 81003; 81015; 83605; 85025; 87040; 87635; 93970; 94760; 96361; 96374; 97116; 97129; 97161; 97166; 97530; 97535; 99284; C9803; G0378; J1650; J3010

== ENCOUNTER → 2021-07-29 07:10 | Outpatient (CLI) | payer MEDICARE, SELFPAY ==
[2021-06-19 09:43] VITALS: BMI 20.7
== END ==
PROVIDERS: PCP Family Medicine; Visit Provider Physician Assistant
DX: N39.0 Urinary tract infection, site not specified (principal)
CPT/HCPCS: 87077; 87086; 87186

== ENCOUNTER → 2021-10-17 09:46 | Outpatient (CLI) | payer MEDICARE, SELFPAY ==
[2021-06-19 09:43] VITALS: BMI 20.7
--- NOTE | 2021-10-17 09:49 | DI.RAD.S_ITS ---
PROCEDURE: XR CHEST 2V INDICATIONS: SOB, fatigue TECHNIQUE: 2 views of the chest were acquired. COMPARISON: None. FINDINGS: Surgical changes and devices: None. Lungs and pleura: Lungs are clear. No pleural effusions or pneumothorax. Mediastinum: Mediastinal contours are normal. Heart size is normal. Bones and chest wall: There is generalized osteopenia. Multiple thoracic compression fractures are seen of uncertain chronicity. This results in prominent kyphotic curvature of the thoracic spine. Right upper quadrant cholecystectomy clips are present. IMPRESSION: No acute cardiopulmonary abnormality. Generalized osteopenia with multilevel thoracic vertebral compression fractures of uncertain chronicity resulting in prominent kyphotic curvature. Recommend correlation for point tenderness. Dictated by: Rich Yanes M.D. on 10/17/2021 at 14:00 Approved by: Rich Yanes M.D. on 10/17/2021 at 14:03
[2021-10-17 11:01] LABS: Add Manual Diff / Slide Review NO; Basophils Absolute Auto 0 /uL (0-100); Basophils Percent Auto 0.7 % (0-2); Eosinophils Absolute Auto 100 /uL (0-450); Eosinophils Percent Auto 1.8 % (2-4); Hematocrit 34.3 % (36-46); Hemoglobin 11.3 g/dL (12.0-16.0); Lymphocytes Absolute Auto 1100 /uL (1100-4500); Lymphocytes Percent Auto 19.2 % (25-40); Mean Corpuscular Hemoglobin 30.1 PG (26-34); Mean Corpuscular Volume 91.2 fL (80-100); Monocytes Absolute Auto 600 /uL (0-900); Monocytes Percent Auto 11.7 % (3-14); Neutrophils Absolute Auto 3700 /uL (1500-7000); Neutrophils Percent Auto 66.6 % (50-75); Platelet Count 174 X10^3/uL (150-400); Red Blood Cell Count 3.76 X10^6/uL (4.0-5.2); Red Cell Distribution Width 14.5 % (11.6-14.8); White Blood Cell Count 5.5 X10^3/uL (4.5-11.0)
[2021-10-17 12:03] LABS: Appearance Urine UA CLEAR; Bilirubin Urine UA NEGATIVE (NEGATIVE); Color Urine UA YELLOW; Glucose Urine UA NEGATIVE (Negative); Ketones Urine UA NEGATIVE (NEGATIVE); Leukocyte Esterase Urine UA NEGATIVE (NEGATIVE); Nitrite Urine UA NEGATIVE (Negative); Occult Blood Urine UA NEGATIVE (Negative); Protein Urine UA NEGATIVE (Negative); Urobilinogen Urine UA 0.2 E.U./dL (0.2)
[2021-10-17 12:04] LABS: pH Urine UA 5.5 (4.5-8.0)
[2021-10-17 12:11] LABS: Bacteria Urine None Seen; Culture Indicated Urine Cult Not Indicated; RBC Urine None Seen (0-5/HPF); Urine Comments Microscopic Normal; WBC Urine None Seen (0-5/HPF)
[2021-10-17 14:06] LABS: Alanine Aminotransferase 40 IU/L (<35); Albumin 4.5 g/dL (3.5-5.0); Albumin Globulin Ratio 1.6 (1.0-2.8); Alkaline Phosphatase 74 U/L (38-126); Aspartate Aminotransferase 66 IU/L (14-36); BUN Creatinine Ratio 28.4 (6-22); Blood Urea Nitrogen 31 mg/dL (7-17); Calcium 9.3 mg/dL (8.4-10.2); Carbon Dioxide 27 mmol/L (22-32); Chloride 105 mmol/L (98-107); Estimated Glomerular Filt Rate 47.7 mL/min (>60); Globulin 2.9 g/dL (1.7-4.1); Glucose 91 mg/dL (80-110); HEMOLYSIS < 15 (0-50); Potassium 4.2 mmol/L (3.4-5.1); Sodium 140 mmol/L (137-145); Total Protein 7.4 g/dL (6.3-8.2)
[2021-10-17 14:12] LABS: NT-proBNP (BNP-Adult 18+) 2160 pg/mL (<450)
[2021-10-17 14:20] LABS: Free T3, Triiodothyronine Free 3.24 pg/mL (2.77-5.27); Free T4, Direct Thyroxine 1.34 ng/dL (0.78-2.19)
[2021-10-17 14:34] LABS: Thyroid Stimulating Hormone 3.15 uIU/mL (0.47-4.68)
== END ==
PROVIDERS: PCP Family Medicine; Referring Provider Nurse Practitioner; Visit Provider Nurse Practitioner
DX: I11.0 Hypertensive heart disease with heart failure (principal); I50.9 Heart failure, unspecified; M48.54XA Collapsed vertebra, not elsewhere classified, thoracic region, initial encounter for fracture; M85.88 Other specified disorders of bone density and structure, other site; R63.5 Abnormal weight gain; R60.9 Edema, unspecified; R32 Unspecified urinary incontinence; R15.9 Full incontinence of feces; R53.82 Chronic fatigue, unspecified
CPT/HCPCS: 36415; 71046; 80053; 81001; 83880; 84439; 84443; 84481; 85025

== ENCOUNTER → 2021-10-23 15:07 | Outpatient (CLI) | payer MEDICARE, SELFPAY ==
[2021-06-19 09:43] VITALS: BMI 20.7
[2021-10-23 16:43] LABS: BUN Creatinine Ratio 24.3 (6-22); Blood Urea Nitrogen 28 mg/dL (7-17); Calcium 9.2 mg/dL (8.4-10.2); Carbon Dioxide 33 mmol/L (22-32); Chloride 104 mmol/L (98-107); Estimated Glomerular Filt Rate 44.8 mL/min (>60); Glucose 110 mg/dL (80-110); HEMOLYSIS < 15 (0-50); Magnesium 2.2 mg/dL (1.6-2.3); Potassium 3.9 mmol/L (3.4-5.1); Sodium 139 mmol/L (137-145)
== END ==
PROVIDERS: Nurse Practitioner; PCP Family Medicine; Referring Provider Family Medicine; Visit Provider Family Medicine
DX: I10 Essential (primary) hypertension (principal); I50.9 Heart failure, unspecified
CPT/HCPCS: 36415; 80048; 83735

== ENCOUNTER → 2021-11-08 13:55 | Outpatient (CLI) | payer MEDICARE, SELFPAY ==
[2021-06-19 09:43] VITALS: BMI 20.7
--- NOTE | 2021-11-08 13:57 | DI.RAD.S_ITS ---
PROCEDURE: XR HIP W PEL IF DONE RT 2V INDICATIONS: R hip pain, no injury TECHNIQUE: AP pelvis with lateral view(s) of the right hip(s). COMPARISON: None. FINDINGS: Bones: No fractures or dislocations. Moderate right worse than left bilateral hip joint osteoarthritic changes are seen. No evidence of avascular necrosis of femoral head. Pelvic ring appears intact. No suspicious bony lesions. Soft tissues: The visualized bowel gas pattern is normal. No suspicious soft tissue calcifications. IMPRESSION: Right worse than left bilateral hip joint osteoarthritis. No hip fracture or dislocation. No evidence of avascular necrosis. Dictated by: Aj Richard M.D. on 11/08/2021 at 14:44 Approved by: Aj Richard M.D. on 11/08/2021 at 14:45
== END ==
PROVIDERS: PCP Family Medicine; Referring Provider Physician Assistant; Visit Provider Physician Assistant
DX: M25.551 Pain in right hip (principal); M16.0 Bilateral primary osteoarthritis of hip
CPT/HCPCS: 73502

== ENCOUNTER → 2021-12-01 14:43 | Outpatient (CLI) | payer MEDICARE, SELFPAY ==
[2021-06-19 09:43] VITALS: BMI 20.7
[2021-12-01 16:47] LABS: Add Manual Diff / Slide Review NO; Basophils Absolute Auto 0 /uL (0-100); Basophils Percent Auto 0.6 % (0-2); Eosinophils Absolute Auto 200 /uL (0-450); Eosinophils Percent Auto 2.7 % (2-4); Hemoglobin 11.6 g/dL (12.0-16.0); Lymphocytes Absolute Auto 1500 /uL (1100-4500); Lymphocytes Percent Auto 24.9 % (25-40); Mean Corpuscular HGB Conc 34.2 % (30-36); Mean Corpuscular Hemoglobin 30.2 PG (26-34); Mean Corpuscular Volume 88.4 fL (80-100); Monocytes Absolute Auto 700 /uL (0-900); Monocytes Percent Auto 11.4 % (3-14); Neutrophils Absolute Auto 3700 /uL (1500-7000); Neutrophils Percent Auto 60.4 % (50-75); Platelet Count 204 X10^3/uL (150-400); Red Blood Cell Count 3.85 X10^6/uL (4.0-5.2); Red Cell Distribution Width 14.6 % (11.6-14.8); White Blood Cell Count 6.2 X10^3/uL (4.5-11.0)
[2021-12-01 17:04] LABS: Alanine Aminotransferase 22 IU/L (<35); Albumin 4.1 g/dL (3.5-5.0); Albumin Globulin Ratio 1.3 (1.0-2.8); Alkaline Phosphatase 180 U/L (38-126); Aspartate Aminotransferase 39 IU/L (14-36); Bilirubin Total 0.6 mg/dL (0.2-1.3); Blood Urea Nitrogen 40 mg/dL (7-17); Calcium 8.5 mg/dL (8.4-10.2); Carbon Dioxide 29 mmol/L (22-32); Chloride 105 mmol/L (98-107); Estimated Glomerular Filt Rate 46.6 mL/min (>60); Globulin 3.1 g/dL (1.7-4.1); Glucose 87 mg/dL (80-110); HEMOLYSIS < 15 (0-50); Potassium 4.5 mmol/L (3.4-5.1); Sodium 143 mmol/L (137-145); Total Protein 7.2 g/dL (6.3-8.2)
== END ==
PROVIDERS: PCP Family Medicine; Referring Provider Family Medicine; Visit Provider Family Medicine
DX: R53.82 Chronic fatigue, unspecified (principal); M40.04 Postural kyphosis, thoracic region; N18.30 Chronic kidney disease, stage 3 unspecified
CPT/HCPCS: 36415; 80053; 85025

== ENCOUNTER 2021-12-16 15:46 | Emergency (ER) | payer MEDICARE, SELFPAY ==
[2021-06-19 09:43] VITALS: BMI 20.7
[2021-12-16 16:14] VITALS: BP 166/80; PULSE 91; RESP 18; TEMP 36.6; O2SAT 97
--- NOTE | 2021-12-16 18:13 | ED_ITS ---
HPI - Extremity Injury (Lower) General Chief Complaint: Extremity Injury, Lower Stated Complaint: Left Leg Pain, Sent From [facility] Time Seen by Provider: 12/16/21 18:01 Source: patient and family Mode of arrival: Wheelchair History of Present Illness HPI Narrative: 86-year-old female smoker with history of hypertension, bilateral lower extrem ity edema, CHF, mobility impairment, chronic kidney disease presents with family in the chief complaint of cramping and discomfort in her left leg. She states that she has been having tingling and pain in her left leg for some time and decided to have it checked out today. She denies any fever or chills, she denies use of blood thinners. She denies any specific injury. She states her pain is worse when she moves and improves with rest. She denies any loss of control of bowel or bladder. She had gone to the walk-in clinic and was sent here for further evaluation. Related Data Home Medications Medication Instructions Recorded Confirmed [Eye-Protect] See Rx Instructions .ROUTE 09/09/17 12/05/21 .COMPLEX PRN #0 latanoprost 0.005 % eye drops 1 drp OPHTH HS #0 09/09/17 12/05/21 timolol maleate 0.25 % eye drops 1 drp OPHTH DAILY #0 09/09/17 12/05/21 (Timoptic) magnesium 250 mg tablet 250 mg PO DAILY 08/02/21 12/05/21 Vitamin E PO 10/24/21 12/05/21 cholecalciferol (vitamin D3) 50 50 mcg PO DAILY 10/24/21 12/05/21 mcg (2,000 unit) capsule Previous Rx's Medication Instructions Recorded acetaminophen 325 mg tablet 975 mg PO Q8H PRN #10 tab 06/21/21 Disabled Parking Permit #1 ea 10/17/21 amlodipine 2.5 mg tablet 2.5 mg PO DAILY #90 tab 12/05/21 furosemide 40 mg tablet 40 mg PO QAM #90 tab 12/05/21 gabapentin 100 mg capsule 100 mg PO BEDTIME #14 cap 12/16/21 prednisone 10 mg tablet See Rx Instructions .ROUTE 12/16/21 .COMPLEX #30 tab Allergies Allergy/AdvReac Type Severity Reaction Status Date / Time Penicillins [PENICILLINS] Allergy Unknown Verified 12/05/21 14:42 Review of Systems Review of Systems Narrative: GENERAL: Denies chills, fatigue, malaise, fever, sweats. HEENT: Denies sinus pain, ear pain, sore throat, difficulty swallowing, dizziness. RESPIRATORY: Denies dyspnea, cough, wheezing, hemoptysis, sputum. CARDIOVASCULAR: Denies chest pain, palpitations, orthopnea, edema, GASTROINTESTINAL: Denies nausea, vomiting, abdominal pain, diarrhea, constipation, melena. : Denies dysuria, frequency, incontinence, hematuria, urinary retention. MUSCULOSKELETAL: d see HPI SKIN: Denies rash, skin lesions, or other NEUROLOGIC: Denies weakness, headache, numbness, change in speech, confusion, seizures, incoordination. PSYCHIATRIC: No concerning psychosocial issues. 12 point review of systems is negative except for those stated above Patient History Medical History Bilateral lower extremity edema Cataracts, bilateral (~2013) CKD (chronic kidney disease) stage 3, GFR 30-59 ml/min Congestive heart failure of unknown etiology Fatigue Fractures (2000) Glaucoma (~2016) Gout (2001) Hypertension (Unknown) Leg cramps Mobility impaired Muscular deconditioning Osteoporosis (~1998) POLST (Physician Orders for Life-Sustaining Treatment) Swelling of both ankles Urinary tract infection Surgical History History of surgery on arm (~2000) History of tonsillectomy (1961) Status post cholecystectomy (1995) Family History Father No problems noted. Mother Cancer Social History household members: spouse Smoking Status: Current some day smoker Smoking Status: Current some day smoker alcohol intake frequency: holidays/special occasions only Alcohol type: wine Substance Use Type: does not use Exam Narrative Exam Narrative: GENERAL: [86] year old patient appears stated age. Well-developed patient, in mild distress. HEAD: Atraumatic. Normocephalic. EYES: Pupils equal round and reactive. Extraocular motions intact. No scleral icterus. No injection or drainage. ENT: Nose without bleeding, purulent drainage. Throat without erythema, tonsillar hypertrophy or exudate. Airway patent. NECK: Trachea midline. Non tender CARDIOVASCULAR: Regular rate and rhythm without murmurs, gallops, or rubs. RESPIRATORY: Clear to auscultation. Breath sounds equal bilaterally. No wheezes, rales, or rhonchi. GASTROINTESTINAL: Abdomen soft, non-tender, nondistended. EXTREMITIES: No edema or joint tenderness. BACK: diver tender but free of any obvious external abnormalities. Patient exam notes decreased range of motion and muscle spasm, but no CVA tenderness, or vertebral point tenderness. There are no symptoms of cauda equina such as saddle anesthesia, and decreased reflexes, decreased sensation or strength. NEURO: AOx3. SKIN: No rash or erythema of visible areas Initial Vital Signs Initial Vital Signs: Vital Signs Temperature 98 F 12/16/21 16:14 Pulse Rate 91 H 12/16/21 16:14 Respiratory Rate 18 12/16/21 16:14 Blood Pressure 166/80 H 12/16/21 16:14 Pulse Oximetry 97 12/16/21 16:14 Course Orders Ordered: ED Orders 12/16/21 21:16 CT lumbar spine w con Stat Discontinued Medications Gabapentin (Gabapentin 300 Mg Capsule) 300 mg PO NOW ONE Stop: 12/16/21 19:05 Last Admin: 12/16/21 19:37 Dose: 300 mg Documented by: TERRY Prednisone (Prednisone 20 Mg Tablet) 40 mg PO NOW ONE Stop: 12/16/21 19:05 Last Admin: 12/16/21 19:37 Dose: 40 mg Documented by: TERRY Vital Signs Vital signs: Vital Signs - 8 hr 12/16/21 23:46 Pulse Rate 77 Blood Pressure 165/74 H Pulse Oximetry 94 MDM - Extremity Injury (Lower) Lab Data Result diagrams: 12/16/21 19:30 12/16/21 19:30 Labs: Lab Results 12/16/21 12/16/21 Range/Units 19:30 19:30 WBC 7.9 (4.5-11.0) X10^3/uL RBC 3.72 L (4.0-5.2) X10^6/uL Hgb 10.9 L (12.0-16.0) g/dL Hct 32.8 L (36-46) % MCV 88.1 (80-100) fL MCH 29.2 (26-34) PG MCHC 33.2 (30-36) % RDW 15.0 H (11.6-14.8) % Plt Count 184 (150-400) X10^3/uL Neut % (Auto) 75.2 H (50-75) % Lymph % (Auto) 13.7 L (25-40) % Harmon % (Auto) 8.8 (3-14) % Eos % (Auto) 1.7 L (2-4) % Baso % (Auto) 0.6 (0-2) % Neut # (Auto) 5900 (7715-4307) /uL Lymph # (Auto) 1100 (4660-7932) /uL Harmon # (Auto) 700 (0-900) /uL Eos # (Auto) 100 (0-450) /uL Baso # (Auto) 0 (0-100) /uL ESR 35 H (0-20) MM/HR Sodium 138 (137-145) mmol/L Potassium 3.6 (3.4-5.1) mmol/L Chloride 104 (98-107) mmol/L Carbon Dioxide 27 (22-32) mmol/L BUN 26 H (7-17) mg/dL Creatinine 1.03 (0.52-1.04) mg/dL Estimated GFR 53 L (>60) mL/min BUN/Creatinine Ratio 25.2 H (6-22) Glucose 115 H (80-110) mg/dL Calcium 8.7 (8.4-10.2) mg/dL C-Reactive Protein 1.5 H (<1.0) mg/dL Imaging Data Lumbar CT: Radiologist's Impression: [place] [address] CT Scan Report Signed Patient: Rhoda Lane MR#: [id number] : 1935 Acct:[id number] Age/Sex: 86 / F Date of Service: 12/16/21 Loc: ED Accession Number: [id number] ?? Procedure: CT lumbar spine w con Ordering Provider: Juaquin Potts D.O. PROCEDURE:? CT LUMBAR SPINE without contrast ? INDICATIONS:? back pain, radicular, LLE weakness ? TECHNIQUE:? Helical axial CT of the lumbar spine was obtained without intravenous contrast and reformatted in multiple planes.? Radiation dose reduction was achieved utilizing automated exposure control and/or parameter adjustment according to patient's size. ? COMPARISON:? None. ? FINDINGS:? Image quality:? Excellent.? ? Bones:? Generalized decrease in osseous mineralization noted.? Wedge-shaped compression fractures noted at T11, T12, L1.? Large Schmorl's nodes involves the superior and inferior endplate of L2 as well as the superior endplates of L4 and L5.? Alignment was within normal limits. ? Soft tissues:? No retroperitoneal masses.? Visualized aorta demonstrates normal caliber.? Heart size is enlarged.? Small right pleural effusion. ? At the disc levels, retropulsed fracture fragment at T11-12 results in [id number] central stenosis.? Degenerative disc disease and arthropathy results in moderate central stenosis at L3-4, L4-5 and L5-S1. ? ? IMPRESSION:? ? Multiple osteopenic compression fractures at the thoracolumbar junction, u ncertain age. ? Multilevel degenerative disc disease and arthropathy results in [id number] central stenosis in the lower lumbar spine ? ? ? Approved by: Cristopher Salas M.D. on 12/16/2021 at 22:02? MDM Narrative Medical decision making narrative: Multiple etiologies of back pain considered including; Epidural abscess, cauda equina, mass occupying lesion, and other considered, however no indications of a neuro surgical emergency are present in her history exam, she has improved symptoms with above-stated therapies, imaging shows evidence of age indeterminate compression fractures but no to column fractures or evidence of a diagnosis that would require surgical intervention. Extensive return precautions discussed and questions answered to their apparent satisfaction Discharge Plan Departure Patient Disposition: Home Clinical Impression: Lumbar radicular pain Instructions: DI for Lumbar Radiculopathy Activity Restrictions/Additional Instructions: *You have been diagnosed with [lumbar pain with radiculopathy. History and physical exam are reassuring and there is no indication of a neurosurgical emergency. *What to do: *Please continue to take your regular medications as directed. [x ] New medication prescriptions sent to your pharmacy: [ [facility]] [ ] New medication written as a paper prescription [ ] No new medications given *Please follow up with your primary care provider in 2-3 days, call for an appointment. Let them know you were seen in the Emergency Department and that we ask that you be seen in follow up. We will electronically transmit a record of today's note if your PCP is in our system *If you do not have a primary care provider please contact the [facility] Resource line at [phone]. They will ask some questions about your medical history and help get you set up with a doctor in the community. *Return to Emergency Department if you should have any new, worsening or concerning symptoms, such as [fever greater than 101 F, shaking chills, worsening pain, persistent vomiting or other bothersome symptoms] Prescriptions: New prednisone 10 mg tablet See Rx Instructions .ROUTE .COMPLEX Qty: 30 0RF Rx Instructions: Day 1,2,3: 40mg PO Daily Day 4,5,6: 30mg PO Daily Day 7,8,9: 20mg PO Daily Day 10,11,12: 10mg PO Daily #30 gabapentin 100 mg capsule 100 mg PO BEDTIME Qty: 14 0RF No Action latanoprost 0.005 % drops 1 drp OPHTH HS Qty: 0 0RF timolol maleate [Timoptic] 0.25 % drops 1 drp OPHTH DAILY Qty: 0 0RF [Eye-Protect] bottle See Rx Instructions .ROUTE .COMPLEX PRN (Reason: Eye Irritation) Qty: 0 0RF Label Comments: Pt not taking this med at this time Rx Instructions: take as directed (DME) Disabled Parking Permit See Rx Instructions .Route .MEDSUPPLY Qty: 1 0RF Rx Instructions: As directed magnesium 250 mg tablet 250 mg PO DAILY 0RF cholecalciferol (vitamin D3) 50 mcg (2,000 unit) capsule 50 mcg PO DAILY 0RF Vitamin E 4,000 units PO 0RF amlodipine 2.5 mg tablet 2.5 mg PO DAILY Qty: 90 3RF furosemide 40 mg tablet 40 mg PO QAM Qty: 90 3RF acetaminophen 325 mg Tablet 975 mg PO Q8H PRN (Reason: Fever/Mild Pain (1-3)) Qty: 10 0RF Referrals: Rip Sarabia DO [Physician] - Tom Aguirre MD [Physician] - James Ndiaye DO [Primary Care Provider] -
[2021-12-16] MEDS: predniSONE 20 MG TABLET 40 MG PO (19:37)
[2021-12-16] MEDS: GABAPENTIN 300 MG CAPSULE PO (19:37)
[2021-12-16 19:42] VITALS: PULSE 96; O2SAT 94
[2021-12-16 19:52] LABS: Add Manual Diff / Slide Review NO; Basophils Absolute Auto 0 /uL (0-100); Basophils Percent Auto 0.6 % (0-2); Eosinophils Absolute Auto 100 /uL (0-450); Eosinophils Percent Auto 1.7 % (2-4); Hematocrit 32.8 % (36-46); Hemoglobin 10.9 g/dL (12.0-16.0); Lymphocytes Absolute Auto 1100 /uL (1100-4500); Lymphocytes Percent Auto 13.7 % (25-40); Mean Corpuscular HGB Conc 33.2 % (30-36); Mean Corpuscular Hemoglobin 29.2 PG (26-34); Mean Corpuscular Volume 88.1 fL (80-100); Monocytes Absolute Auto 700 /uL (0-900); Monocytes Percent Auto 8.8 % (3-14); Neutrophils Absolute Auto 5900 /uL (1500-7000); Neutrophils Percent Auto 75.2 % (50-75); Platelet Count 184 X10^3/uL (150-400); Red Blood Cell Count 3.72 X10^6/uL (4.0-5.2); White Blood Cell Count 7.9 X10^3/uL (4.5-11.0)
[2021-12-16 19:59] LABS: BUN Creatinine Ratio 25.2 (6-22); Blood Urea Nitrogen 26 mg/dL (7-17); C-Reactive Protein Quant 1.5 mg/dL (<1.0); Calcium 8.7 mg/dL (8.4-10.2); Carbon Dioxide 27 mmol/L (22-32); Chloride 104 mmol/L (98-107); Estimated Glomerular Filt Rate 53 mL/min (>60); Glucose 115 mg/dL (80-110); HEMOLYSIS < 15 (0-50); Potassium 3.6 mmol/L (3.4-5.1); Sodium 138 mmol/L (137-145)
[2021-12-16 20:00] VITALS: PULSE 91; O2SAT 94
[2021-12-16 20:25] LABS: Erythrocyte Sedimentation Rate 35 MM/HR (0-20)
[2021-12-16 20:30] VITALS: PULSE 90; O2SAT 94
--- NOTE | 2021-12-16 21:16 | DI.CT.S_ITS ---
PROCEDURE: CT LUMBAR SPINE without contrast INDICATIONS: back pain, radicular, LLE weakness TECHNIQUE: Helical axial CT of the lumbar spine was obtained without intravenous contrast and reformatted in multiple planes. Radiation dose reduction was achieved utilizing automated exposure control and/or parameter adjustment according to patient's size. COMPARISON: None. FINDINGS: Image quality: Excellent. Bones: Generalized decrease in osseous mineralization noted. Wedge-shaped compression fractures noted at T11, T12, L1. Large Schmorl's nodes involves the superior and inferior endplate of L2 as well as the superior endplates of L4 and L5. Alignment was within normal limits. Soft tissues: No retroperitoneal masses. Visualized aorta demonstrates normal caliber. Heart size is enlarged. Small right pleural effusion. At the disc levels, retropulsed fracture fragment at T11-12 results in [id number] central stenosis. Degenerative disc disease and arthropathy results in moderate central stenosis at L3-4, L4-5 and L5-S1. IMPRESSION: Multiple osteopenic compression fractures at the thoracolumbar junction, uncertain age. Multilevel degenerative disc disease and arthropathy results in [id number] central stenosis in the lower lumbar spine Approved by: Cristopher Salas M.D. on 12/16/2021 at 22:02
[2021-12-16 23:46] VITALS: BP 165/74; PULSE 77; O2SAT 94
== END 2021-12-17 00:03 | disposition home or self-care (01) ==
PROVIDERS: Emergency Provider Emergency Medicine; PCP Family Medicine
DX: M54.16 Radiculopathy, lumbar region (principal); F17.200 Nicotine dependence, unspecified, uncomplicated
CPT/HCPCS: 36415; 72132; 80048; 85025; 85651; 86140; 99283; 99284

== ENCOUNTER 2021-12-19 11:09 | Observation (INO) | payer MEDICARE, SELFPAY ==
[2021-12-18 15:32] VITALS: BMI 20.7
[2021-12-19 11:12] VITALS: BP 152/67; PULSE 91; RESP 15; TEMP 36.9; O2SAT 96
--- NOTE | 2021-12-19 15:19 | DI.US.S_ITS ---
PROCEDURE: US PERIPH VENOUS LOW EXTREM LT INDICATIONS: L LEG PAIN TECHNIQUE: Real-time imaging, as well as color and pulse Doppler interrogation, were performed of the lower extremity deep veins from the inguinal ligament to the popliteal fossa. COMPARISON: None. FINDINGS: The common femoral, femoral and popliteal veins are normally compressible, and free of intraluminal thrombus. Color and pulse Doppler demonstrate normal phasic intraluminal flow. There is normal augmentation response to distal compression maneuver. IMPRESSION: No sonographic evidence of DVT. Dictated by: Jaylen Brown M.D. on 12/19/2021 at 16:04 Approved by: Jaylen Brown M.D. on 12/19/2021 at 16:04
--- NOTE | 2021-12-19 15:25 | DI.RAD.S_ITS ---
PROCEDURE: XR FEMUR LT MIN 2V INDICATIONS: Leg pain TECHNIQUE: Three views of the femur were acquired. COMPARISON: None. FINDINGS: Bones: Partially imaged fracture at the left pubic symphysis and probable impaction fracture of the left inferior pubic ramus. Left femoroacetabular joint is intact. Bones are demineralized. No distal femur fracture. Soft tissues: No suspicious soft tissue calcifications or masses. IMPRESSION: 1. Probable left pubic fractures. Recommend pelvic plain films or CT. 2. Intact left femur. Dictated by: Heena Myers M.D. on 12/19/2021 at 16:53 Approved by: Heena Myers M.D. on 12/19/2021 at 16:58
--- NOTE | 2021-12-19 15:25 | DI.RAD.S_ITS ---
PROCEDURE: XR KNEE LT 1TO2V INDICATIONS: Leg pain TECHNIQUE: Two views of the knee were acquired. COMPARISON: None. FINDINGS: Bones: Demineralization. No fractures on the two given views. Minor degenerative lateral tibiofemoral subluxation. No dislocation. Soft tissues: Joint effusion not well assessed.. No suspicious soft tissue calcifications. IMPRESSION: Demineralized, but grossly intact left knee with mild osteoarthritic change. Dictated by: Heena Myers M.D. on 12/19/2021 at 16:52 Approved by: Heena Myers M.D. on 12/19/2021 at 16:53
--- NOTE | 2021-12-19 15:25 | DI.RAD.S_ITS ---
PROCEDURE: XR TIBIA FIBULA LT 2V INDICATIONS: Leg pain TECHNIQUE: 2 views of the tibia and fibula were acquired. COMPARISON: None. FINDINGS: Bones: Decreased mineralization. Minor lateral subluxation at the knee joint. No visible fracture. Soft tissues: No suspicious soft tissue calcifications or masses. IMPRESSION: Demineralized, but intact left tibia and fibula. Dictated by: Heena Myers M.D. on 12/19/2021 at 16:48 Approved by: Heena Myers M.D. on 12/19/2021 at 16:52
--- NOTE | 2021-12-19 15:30 | ED_ITS ---
HPI - Extremity Problem <Charles Muro PA-C - Last Filed: 12/19/21 19:41> General Chief complaint: Extremity Problem,Nontraumatic Stated complaint: Pinched nerve thigh Time Seen by Provider: 12/19/21 14:38 Source: patient Mode of arrival: EMS History of Present Illness HPI Narrative: 86-year-old female with past medical history CHF, bilateral lower extremity edema, history of fractures of the lumbar spine, chronic kidney disease, osteoporosis presents to the ED, accompanied by her daughter for worsening left leg pain. Patient was seen in the ED 3 days ago for the same complaint, however patient states that the pain has since worsened, that she is unable to stand up or bear weight on that leg. Patient's daughter states that her alf is unable to get her to walk or go to the bathroom. Patient denies fever, chills, chest pain, shortness of breath, nausea, vomiting, numbness, tingling, weakness. Patient notes distant history of DVT. Patient denies taking blood thinners. Related Data Home Medications Medication Instructions Recorded Confirmed timolol maleate 0.25 % eye drops 1 drp OPH DAILY #0 09/09/17 12/19/21 (Timoptic) Previous Rx's Medication Instructions Recorded Disabled Parking Permit #1 ea 10/17/21 amlodipine 2.5 mg tablet 2.5 mg PO DAILY #90 tab 12/05/21 furosemide 40 mg tablet 40 mg PO QAM #90 tab 12/05/21 acetaminophen 325 mg tablet 975 mg PO Q8H #30 tab 12/21/21 amlodipine 5 mg tablet (Norvasc) 2.5 mg PO DAILY #30 tab 12/21/21 dorzolamide 22.3 mg-timolol 6.8 1 drops EYE-BOTH BID 30 Days ml 12/21/21 mg/mL eye drops (Cosopt) enoxaparin 40 mg/0.4 mL 40 mg (0.4 mL) SUBCUT DAILY #30 ml 12/21/21 subcutaneous syringe (Lovenox) Allergies Allergy/AdvReac Type Severity Reaction Status Date / Time Penicillins [PENICILLINS] Allergy Unknown Verified 12/19/21 11:14 Review of Systems <Charles Muro PA-C - Last Filed: 12/19/21 19:41> Review of Systems ROS Unobtainable: All systems reviewed & are unremarkable except as noted in HPI and below Constitutional Constitutional: Denies chills, Denies fatigue, Denies fever(s), Denies frequent falls, Denies lethargy and Denies weakness Eyes Eyes: Denies change in vision, Denies eye discharge, Denies irritation and Denies loss of vision ENT Ears, Nose, Mouth, and Throat: Denies change in voice, Denies dizziness, Denies neck pain, Denies sore throat and Denies throat swelling Cardiovascular Cardiovascular: Denies chest pain, Denies irregular heart rhythm, Denies ligh theadedness, Denies palpitations, Denies dyspnea, Denies dyspnea on exertion and Denies orthopnea Respiratory Respiratory: Denies cough, Denies dyspnea, Denies dyspnea on exertion and Denies wheezing Gastrointestinal Gastrointestinal: Denies abdominal pain, Denies change in bowel habits, Denies diarrhea, Denies nausea and Denies vomiting Genitourinary Genitourinary: Denies hematuria, Denies flank pain, Denies urinary incontinence and Denies urinary urgency Musculoskeletal Musculoskeletal: Denies back pain, Denies muscle weakness, Denies neck pain, Denies numbness and Denies tingling Comments: Left leg pain Integumentary/Breasts Skin/Breast: Denies pruritus, Denies erythema, Denies rash and Denies wounds Neurologic Neurologic: Denies behavioral changes, Denies confusion, Denies dizziness, Denies frequent falls, Denies loss of vision, Denies numbness, Denies tingling and Denies weakness Psychiatric Psychiatric: Denies anxiety, Denies behavioral changes, Denies confusion, Denies depression, Denies homicidal ideation and Denies suicidal ideation Endocrine Endocrine: Denies fatigue, Denies flushing and Denies palpitations Hematologic/Lymphatic Hematologic/Lymphatic: Denies easy bruising Allergic/Immunologic Allergic/Immunologic: Denies urticaria, Denies throat swelling and Denies wheezing Patient History <Charles Muro PA-C - Last Filed: 12/19/21 19:41> Medical History Bilateral lower extremity edema Cataracts, bilateral (~2013) CKD (chronic kidney disease) stage 3, GFR 30-59 ml/min Congestive heart failure of unknown etiology Fatigue Fractures (2000) Glaucoma (~2017) Gout (2001) Hypertension (Unknown) Leg cramps Mobility impaired Muscular deconditioning Osteoporosis (~1998) POLST (Physician Orders for Life-Sustaining Treatment) Swelling of both ankles Urinary tract infection Surgical History History of surgery on arm (~2000) History of tonsillectomy (1961) Status post cholecystectomy (1995) Family History Father No problems noted. Mother Cancer Social History household members: spouse Smoking Status: Never smoker Smoking Status: Current some day smoker alcohol intake frequency: holidays/special occasions only Alcohol type: wine Substance Use Type: does not use Exam <Charles Muro PA-C - Last Filed: 12/19/21 19:41> Initial Vital Signs Initial Vital Signs: Vital Signs Temperature 98.4 F 12/19/21 11:12 Pulse Rate 91 H 12/19/21 11:12 Respiratory Rate 15 12/19/21 11:12 Blood Pressure 152/67 H 12/19/21 11:12 Pulse Oximetry 96 12/19/21 11:12 Const General: cooperative, healthy appearing and comfortable HENDC Head: normal to inspection Ears: hearing grossly normal bilaterally Eyes General: appearance normal, both eyes and all related structures Neck Neck: normal visual inspection Resp Effort & Inspection: normal respiratory effort Auscultation: clear to auscultation bilaterally Cardio Rate: regular rate Rhythm: regular rhythm GI Inspection: normal to inspection Back/Spine/Pelvis Back: No back tenderness Other: No midline tenderness to palpation Skin General: no rashes or lesions noted Neuro General: patient alert, patient awake and patient oriented x3 Extrem Other: Left leg without deformities, swelling, erythema. No tenderness to palpation on exam. Patient's pain aggravated by movement, alleviated by rest. Strength and sensation intact. Neurovascularly intact. Psych Appearance: grossly normal Mental Status: mental status grossly normal <Muriel House DO - Last Filed: 12/22/21 20:24> Initial Vital Signs Initial Vital Signs: Vital Signs Temperature 98.4 F 12/19/21 11:12 Pulse Rate 91 H 12/19/21 11:12 Respiratory Rate 15 12/19/21 11:12 Blood Pressure 152/67 H 12/19/21 11:12 Pulse Oximetry 96 12/19/21 11:12 Course <Charles Muro PA-C - Last Filed: 12/19/21 19:41> Orders Ordered: Discontinued Medications Acetaminophen (Acetaminophen 325 Mg Tablet) 650 mg PO Q6HR REPLACED BY [facility] Last Admin: 12/20/21 12:34 Dose: 650 mg Documented by: Admin: 12/20/21 05:02 Dose: 650 mg Documented by: Admin: 12/20/21 00:53 Dose: 650 mg Documented by: YISSEL Acetaminophen (Acetaminophen 325 Mg Tablet) 975 mg PO Q8H PRN PRN Reason: Pain, Mild (1-3) Acetaminophen (Acetaminophen 325 Mg Tablet) 975 mg PO Q8H REPLACED BY [facility] Last Admin: 12/21/21 12:27 Dose: 975 mg Documented by: Admin: 12/21/21 04:39 Dose: Not Given Documented by: Admin: 12/20/21 21:20 Dose: 975 mg Documented by: HATTIE Amlodipine Besylate (Amlodipine 5 Mg Tablet) 2.5 mg PO DAILY REPLACED BY [facility] Last Admin: 12/21/21 09:53 Dose: 2.5 mg Documented by: Admin: 12/20/21 09:06 Dose: 2.5 mg Documented by: LARISA Cyclobenzaprine HCl (Cyclobenzaprine 10 Mg Tablet) 5 mg PO NOW ONE Stop: 12/19/21 15:25 Last Admin: 12/19/21 16:08 Dose: 5 mg Documented by: SUSIE Dorzolamide/Timolol (Dorzolamide/Timolol Ophth 10 Ml) 1 drops EYE-BOTH BID REPLACED BY [facility] Last Admin: 12/21/21 09:56 Dose: 1 drops Documented by: Admin: 12/20/21 21:20 Dose: 1 drops Documented by: Admin: 12/20/21 09:08 Dose: 1 drops Documented by: Admin: 12/19/21 23:32 Dose: Not Given Documented by: YISSEL Enoxaparin Sodium (Enoxaparin 40 Mg/0.4 Ml Syringe) 40 mg SUBCUT DAILY REPLACED BY [facility] Last Admin: 12/21/21 09:52 Dose: 40 mg Documented by: Admin: 12/20/21 09:08 Dose: 40 mg Documented by: LARISA Latanoprost (Latanoprost 0.005% Ophth 2.5 Ml) 1 drops EYE-BOTH BEDTIME BINU Last Admin: 12/19/21 23:32 Dose: Not Given Documented by: YISSEL Metoprolol Tartrate (Metoprolol Ir 25 Mg Tablet) 12.5 mg PO NOW ONE Stop: 12/19/21 23:58 Last Admin: 12/20/21 00:15 Dose: 12.5 mg Documented by: YISSEL Morphine Sulfate (Morphine 2 Mg/Ml Inj) 2 mg IV NOW ONE Stop: 12/19/21 15:21 Last Admin: 12/19/21 16:08 Dose: 2 mg Documented by: SUSIE Morphine Sulfate (Morphine 2 Mg/Ml Inj) 2 mg IV NOW ONE Stop: 12/19/21 17:05 Last Admin: 12/19/21 17:13 Dose: 2 mg Documented by: SUSIE Morphine Sulfate (Morphine 2 Mg/Ml Inj) 2 mg IV Q4H PRN PRN Reason: Breakthrough pain only (8-10) Naloxone HCl (Naloxone 0.4 Mg/Ml Vial) 0.2 mg IV Q2MIN PRN PRN Reason: Opiate Reversal Ondansetron HCl (Ondansetron 4 Mg/2 Ml Inj) 4 mg IV Q6HR PRN PRN Reason: Nausea And Vomiting Oxycodone/Acetaminophen (Oxycodone/Acetaminophen 5/325 Tablet) 1 tab PO NOW ONE Stop: 12/19/21 18:16 Last Admin: 12/19/21 18:35 Dose: Not Given Documented by: SHERRELL Tramadol HCl (Tramadol 50 Mg Tablet) 50 mg PO Q4H PRN PRN Reason: Pain, Moderate (4-6) Last Admin: 12/21/21 03:14 Dose: 50 mg Documented by: Admin: 12/20/21 05:01 Dose: 50 mg Documented by: YISSEL Vital Signs Vital signs: Vital Signs - 8 hr 12/19/21 16:43 12/19/21 18:00 12/19/21 18:57 Pulse Rate 80 80 84 Respiratory Rate 16 16 17 Blood Pressure 141/64 H 153/73 H Pulse Oximetry 99 92 94 <Muriel House DO - Last Filed: 12/22/21 20:24> Orders Ordered: Discontinued Medications Acetaminophen (Acetaminophen 325 Mg Tablet) 650 mg PO Q6HR REPLACED BY [facility] Last Admin: 12/20/21 12:34 Dose: 650 mg Documented by: Admin: 12/20/21 05:02 Dose: 650 mg Documented by: Admin: 12/20/21 00:53 Dose: 650 mg Documented by: YISSEL Acetaminophen (Acetaminophen 325 Mg Tablet) 975 mg PO Q8H PRN PRN Reason: Pain, Mild (1-3) Acetaminophen (Acetaminophen 325 Mg Tablet) 975 mg PO Q8H REPLACED BY [facility] Last Admin: 12/21/21 12:27 Dose: 975 mg Documented by: Admin: 12/21/21 04:39 Dose: Not Given Documented by: Admin: 12/20/21 21:20 Dose: 975 mg Documented by: HATTIE Amlodipine Besylate (Amlodipine 5 Mg Tablet) 2.5 mg PO DAILY REPLACED BY [facility] Last Admin: 12/21/21 09:53 Dose: 2.5 mg Documented by: Admin: 12/20/21 09:06 Dose: 2.5 mg Documented by: LARISA Cyclobenzaprine HCl (Cyclobenzaprine 10 Mg Tablet) 5 mg PO NOW ONE Stop: 12/19/21 15:25 Last Admin: 12/19/21 16:08 Dose: 5 mg Documented by: SUSIE Dorzolamide/Timolol (Dorzolamide/Timolol Ophth 10 Ml) 1 drops EYE-BOTH BID REPLACED BY [facility] Last Admin: 12/21/21 09:56 Dose: 1 drops Documented by: Admin: 12/20/21 21:20 Dose: 1 drops Documented by: Admin: 12/20/21 09:08 Dose: 1 drops Documented by: Admin: 12/19/21 23:32 Dose: Not Given Documented by: YISSEL Enoxaparin Sodium (Enoxaparin 40 Mg/0.4 Ml Syringe) 40 mg SUBCUT DAILY REPLACED BY [facility] Last Admin: 12/21/21 09:52 Dose: 40 mg Documented by: Admin: 12/20/21 09:08 Dose: 40 mg Documented by: LARISA Latanoprost (Latanoprost 0.005% Ophth 2.5 Ml) 1 drops EYE-BOTH BEDTIME BINU Last Admin: 12/19/21 23:32 Dose: Not Given Documented by: YISSEL Metoprolol Tartrate (Metoprolol Ir 25 Mg Tablet) 12.5 mg PO NOW ONE Stop: 12/19/21 23:58 Last Admin: 12/20/21 00:15 Dose: 12.5 mg Documented by: YISSEL Morphine Sulfate (Morphine 2 Mg/Ml Inj) 2 mg IV NOW ONE Stop: 12/19/21 15:21 Last Admin: 12/19/21 16:08 Dose: 2 mg Documented by: SUSIE Morphine Sulfate (Morphine 2 Mg/Ml Inj) 2 mg IV NOW ONE Stop: 12/19/21 17:05 Last Admin: 12/19/21 17:13 Dose: 2 mg Documented by: SUSIE Morphine Sulfate (Morphine 2 Mg/Ml Inj) 2 mg IV Q4H PRN PRN Reason: Breakthrough pain only (8-10) Naloxone HCl (Naloxone 0.4 Mg/Ml Vial) 0.2 mg IV Q2MIN PRN PRN Reason: Opiate Reversal Ondansetron HCl (Ondansetron 4 Mg/2 Ml Inj) 4 mg IV Q6HR PRN PRN Reason: Nausea And Vomiting Oxycodone/Acetaminophen (Oxycodone/Acetaminophen 5/325 Tablet) 1 tab PO NOW ONE Stop: 12/19/21 18:16 Last Admin: 12/19/21 18:35 Dose: Not Given Documented by: SHERRELL Tramadol HCl (Tramadol 50 Mg Tablet) 50 mg PO Q4H PRN PRN Reason: Pain, Moderate (4-6) Last Admin: 12/21/21 03:14 Dose: 50 mg Documented by: Admin: 12/20/21 05:01 Dose: 50 mg Documented by: YISSEL Vital Signs Vital signs: Vital Signs - 8 hr 12/19/21 16:43 12/19/21 18:00 12/19/21 18:57 Pulse Rate 80 80 84 Respiratory Rate 16 16 17 Blood Pressure 141/64 H 153/73 H Pulse Oximetry 99 92 94 MDM - Extremity (Nontraumatic) <Charles Muro PA-C - Last Filed: 12/19/21 19:41> Lab Data Lab results narrative: Labs within normal limits. UA negative for UTI. Result diagrams: 12/21/21 05:33 12/21/21 05:33 Labs: Lab Results 12/19/21 12/19/21 12/19/21 Range/Units 15:25 16:07 16:07 WBC 9.3 (4.5-11.0) X10^3/uL RBC 3.93 L (4.0-5.2) X10^6/uL Hgb 11.6 L (12.0-16.0) g/dL Hct 34.6 L (36-46) % MCV 88.1 (80-100) fL MCH 29.6 (26-34) PG MCHC 33.6 (30-36) % RDW 15.2 H (11.6-14.8) % Plt Count 255 (150-400) X10^3/uL Neut % (Auto) 68.6 (50-75) % Lymph % (Auto) 20.4 L (25-40) % [place] % (Auto) 9.2 (3-14) % Eos % (Auto) 1.1 L (2-4) % Baso % (Auto) 0.7 (0-2) % Neut # (Auto) 6400 (0315-1932) /uL Lymph # (Auto) 1900 (5981-8727) /uL [place] # (Auto) 900 (0-900) /uL Eos # (Auto) 100 (0-450) /uL Baso # (Auto) 100 (0-100) /uL PT 11.9 (10.1-12.7) SECONDS INR 1.1 (0.9-1.3) APTT 27 (26.4-36.2) SECONDS Sodium (137-145) mmol/L Potassium (3.4-5.1) mmol/L Chloride (98-107) mmol/L Carbon Dioxide (22-32) mmol/L BUN (7-17) mg/dL Creatinine (0.52-1.04) mg/dL Estimated GFR (>60) mL/min BUN/Creatinine Ratio (6-22) Glucose (80-110) mg/dL Calcium (8.4-10.2) mg/dL Total Bilirubin (0.2-1.3) mg/dL AST (14-36) IU/L ALT (<35) IU/L Alkaline Phosphatase (38-126) U/L Total Protein (6.3-8.2) g/dL Albumin (3.5-5.0) g/dL Globulin (1.7-4.1) g/dL Albumin/Globulin Ratio (1.0-2.8) Urine Color Yellow Urine Appearance Clear Urine pH 5.5 (4.5-8.0) Ur Specific [place] 1.010 (1.000-1.035) Urine Protein Trace H (Negative) Urine Glucose (UA) Negative (Negative) g/dL Urine Ketones Negative (NEGATIVE) Urine Occult Blood Trace-intact (Negative) Urine Nitrate Negative (Negative) Urine Bilirubin Negative (NEGATIVE) Urine Urobilinogen 0.2 (0.2) E.U./dL Ur Leukocyte Esterase Negative (NEGATIVE) Urine RBC 0-1/hpf (0-5/HPF) Urine WBC 1-5/hpf (0-5/HPF) Ur Squamous Epith Cells 0-1 /hpf (0-5/HPF) Amorphous Sediment 1+ Urine Bacteria Occasional (0-1) (None) Ur Culture Indicated? Cult not indicated 12/19/21 Range/Units 16:07 WBC (4.5-11.0) X10^3/uL RBC (4.0-5.2) X10^6/uL Hgb (12.0-16.0) g/dL Hct (36-46) % MCV (80-100) fL MCH (26-34) PG MCHC (30-36) % RDW (11.6-14.8) % Plt Count (150-400) X10^3/uL Neut % (Auto) (50-75) % Lymph % (Auto) (25-40) % [place] % (Auto) (3-14) % Eos % (Auto) (2-4) % Baso % (Auto) (0-2) % Neut # (Auto) (2247-3319) /uL Lymph # (Auto) (0798-6479) /uL [place] # (Auto) (0-900) /uL Eos # (Auto) (0-450) /uL Baso # (Auto) (0-100) /uL PT (10.1-12.7) SECONDS INR (0.9-1.3) APTT (26.4-36.2) SECONDS Sodium 142 (137-145) mmol/L Potassium 3.4 (3.4-5.1) mmol/L Chloride 106 (98-107) mmol/L Carbon Dioxide 30 (22-32) mmol/L BUN 26 H (7-17) mg/dL Creatinine 0.92 (0.52-1.04) mg/dL Estimated GFR > 60 (>60) mL/min BUN/Creatinine Ratio 28.3 H (6-22) Glucose 99 (80-110) mg/dL Calcium 8.3 L (8.4-10.2) mg/dL Total Bilirubin 1.2 (0.2-1.3) mg/dL AST 44 H (14-36) IU/L ALT 36 H (<35) IU/L Alkaline Phosphatase 211 H (38-126) U/L Total Protein 6.6 (6.3-8.2) g/dL Albumin 3.6 (3.5-5.0) g/dL Globulin 3.0 (1.7-4.1) g/dL Albumin/Globulin Ratio 1.2 (1.0-2.8) Urine Color Urine Appearance Urine pH (4.5-8.0) Ur Specific [place] (1.000-1.035) Urine Protein (Negative) Urine Glucose (UA) (Negative) g/dL Urine Ketones (NEGATIVE) Urine Occult Blood (Negative) Urine Nitrate (Negative) Urine Bilirubin (NEGATIVE) Urine Urobilinogen (0.2) E.U./dL Ur Leukocyte Esterase (NEGATIVE) Urine RBC (0-5/HPF) Urine WBC (0-5/HPF) Ur Squamous Epith Cells (0-5/HPF) Amorphous Sediment Urine Bacteria (None) Ur Culture Indicated? Imaging Data CT scan - abdomen/pelvis: Radiologist's Impression: PROCEDURE:? CT ABDOMEN PELVIS W CON ? INDICATIONS:? Pubic rami fracture ? TECHNIQUE:? After the administration of oral and IV contrast, axial sections were acquired from the lung bases to the pubic symphysis.? Coronal and sagittal reformats were performed.? For radiation dose reduction, the following was used:? automated exposure control, adjustment of mA and/or kV according to patient size. ? COMPARISON:? [facility], CT, CT PEL WO CON, 06/19/2021, 5:09.? [facility], CT, CT LUMBAR SPINE W CON, 12/16/2021, 21:23. ? FINDINGS:? Image quality:? Excellent.? ? Lung bases:? There is a small right-sided pleural effusion and a trace left- sided pleural effusion.? Overlying enhancing atelectasis is seen. Heart:? No significant findings.? At least moderate coronary artery calcification is seen. ? ? ABDOMEN: Liver:? Unremarkable.? ? Gallbladder:? Removed.? ? Biliary ducts:? Unremarkable.? ? Pancreas:? Unremarkable.? ? Spleen:? Unremarkable.? ? Adrenal Glands:? Unremarkable.? ? Kidneys and Ureters:? Unremarkable.? ? ? Stomach and Bowel:? Stomach, small bowel loops, and colon are unremarkable.? Peritoneum:? No abnormal intraperitoneal fluid.? No free air.? ? Ventral Wall: ? No hernia.? Abdominal Nodes:? No retroperitoneal or mesenteric adenopathy by size criteria.? Vessels:? Aorta and inferior vena cava are normal in size.? ? PELVIS: Pelvic Organs: The uterus appears normal for age.? No adnexal masses are seen.? Bladder:? The urinary bladder is abnormally prominent. Pelvic Nodes: No enlarged lymph nodes.? Miscellaneous: No inguinal hernias are seen. ? ? ? Bones:? There is a prominently displaced fracture of the left superior pubic ramus, at the level of the pubis.? The bone at this site appears demineralized.? There is a comminuted fracture of the left inferior pubic ramus.? There is a mildly displaced fracture seen involving the right pubis, as on series 4, image 19. Mild sclerosis can be seen involving the right pubis. ? Numerous remote appearing thoracic spine compression deformities are seen, involving at least the T9, T12, L1, L2, L4, and L5 levels.? Age-appropriate bony degenerative changes are seen.? ? ? IMPRESSION:? Prominent displaced fracture of the left superior pubic ramus involving the isthmus.? There is also a comminuted fracture of the left inferior pubic ramus.? A mildly displaced fracture is seen involving the right pubis. ? There is sclerosis seen involving the right pubis and there is apparent lysis seen involving the left pubis.? However, on the 06/19/2021 examination, the bone at this site was within normal limits.? The appearance of sclerosis and lysis may simply be artifactual on the current images. ? Abnormally prominent urinary bladder.? On these images, no lencho findings of bladder laceration can be seen.? However, please correlate for posttraumatic urinary retention. ? Bilateral pleural effusions are seen, right larger than left, with overlying atelectasis. ? ? ? Incidental note is made of: At least moderate coronary artery calcification Cholecystectomy Numerous remote appearing compression deformities ? Dictated by: Camilo Simental M.D. on 12/19/2021 at 17:28 ? ? Approved by: Camilo Simental M.D. on 12/19/2021 at 17:34 ? Extremity x-ray #1: Radiologist's Impression: PROCEDURE:? XR TIBIA FIBULA LT 2V ? INDICATIONS:? Leg pain ? TECHNIQUE:? 2 views of the tibia and fibula were acquired.? ? COMPARISON:? None. ? FINDINGS:? ? Bones:? Decreased mineralization.? Minor lateral subluxation at the knee joint.? No visible fracture. ? Soft tissues:? No suspicious soft tissue calcifications or masses.? ? IMPRESSION:? Demineralized, but intact left tibia and fibula. ? ? Dictated by: Heena Myers M.D. on 12/19/2021 at 16:48 ? ? Approved by: Heena Myers M.D. on 12/19/2021 at 16:52 ? Extremity x-ray #2: Radiologist's Impression: PROCEDURE:? XR KNEE LT 1TO2V ? INDICATIONS:? Leg pain ? TECHNIQUE:? Two views of the knee were acquired.? ? COMPARISON:? None. ? FINDINGS:? ? Bones:? Demineralization.? No fractures on the two given views.? Minor degenerative lateral tibiofemoral subluxation.? No dislocation. ? Soft tissues:? Joint effusion not well assessed..? No suspicious soft tissue calcifications.? ? ? IMPRESSION:? Demineralized, but grossly intact left knee with mild osteoarthri tic change. ? ? Dictated by: Heena Myers M.D. on 12/19/2021 at 16:52 ? ? Approved by: Heena Myers M.D. on 12/19/2021 at 16:53 ? Extremity x-ray #3: Radiologist's Impression: PROCEDURE:? XR FEMUR LT MIN 2V ? INDICATIONS:? Leg pain ? TECHNIQUE:? Three views of the femur were acquired.? ? COMPARISON:? None. ? FINDINGS:? ? Bones:? Partially imaged fracture at the left pubic symphysis and probable impaction fracture of the left inferior pubic ramus.? Left femoroacetabular joint is intact.? Bones are demineralized.? No distal femur fracture. ? Soft tissues:? No suspicious soft tissue calcifications or masses.? ? IMPRESSION:? ? 1. Probable left pubic fractures.? Recommend pelvic plain films or CT. ? 2. Intact left femur.? ? ? Dictated by: Heena Myers M.D. on 12/19/2021 at 16:53 ? ? Approved by: Heena Myers M.D. on 12/19/2021 at 16:58 ? MDM Narrative Medical decision making narrative: 86-year-old female with past medical history CHF, bilateral lower extremity edema, history of fractures of the lumbar spine, chronic kidney disease, osteoporosis presents to the ED, accompanied by her daughter for worsening left leg pain. Concern for DVT versus fracture versus musculoskeletal sprain/strain versus arthritis. Will obtain x-rays, ultrasound left lower leg, labs. Will control pain with morphine, Flexeril. Will reassess. CT abdomen pelvis, x-rays show bilateral pubic rami fractures. Will bladder scan to look for postvoid residual. CT does not show any lencho findings of bladder laceration. Dr. Roy from orthopedics was consulted, for him this would be non operative and weight-bearing as tolerable. Consulted hospitalist Grace Raymond to place patient in observation in order to find a rehab facility for her. Patient accepted for observation. <Muriel House, - Last Filed: 12/22/21 20:24> Lab Data Labs: Lab Results 12/19/21 12/19/21 12/19/21 Range/Units 15:25 16:07 16:07 WBC 9.3 (4.5-11.0) X10^3/uL RBC 3.93 L (4.0-5.2) X10^6/uL Hgb 11.6 L (12.0-16.0) g/dL Hct 34.6 L (36-46) % MCV 88.1 (80-100) fL MCH 29.6 (26-34) PG MCHC 33.6 (30-36) % RDW 15.2 H (11.6-14.8) % Plt Count 255 (150-400) X10^3/uL Neut % (Auto) 68.6 (50-75) % Lymph % (Auto) 20.4 L (25-40) % [place] % (Auto) 9.2 (3-14) % Eos % (Auto) 1.1 L (2-4) % Baso % (Auto) 0.7 (0-2) % Neut # (Auto) 6400 (8502-3975) /uL Lymph # (Auto) 1900 (3902-1136) /uL [place] # (Auto) 900 (0-900) /uL Eos # (Auto) 100 (0-450) /uL Baso # (Auto) 100 (0-100) /uL PT 11.9 (10.1-12.7) SECONDS INR 1.1 (0.9-1.3) APTT 27 (26.4-36.2) SECONDS Sodium (137-145) mmol/L Potassium (3.4-5.1) mmol/L Chloride (98-107) mmol/L Carbon Dioxide (22-32) mmol/L BUN (7-17) mg/dL Creatinine (0.52-1.04) mg/dL Estimated GFR (>60) mL/min BUN/Creatinine Ratio (6-22) Glucose (80-110) mg/dL Calcium (8.4-10.2) mg/dL Total Bilirubin (0.2-1.3) mg/dL AST (14-36) IU/L ALT (<35) IU/L Alkaline Phosphatase (38-126) U/L Total Protein (6.3-8.2) g/dL Albumin (3.5-5.0) g/dL Globulin (1.7-4.1) g/dL Albumin/Globulin Ratio (1.0-2.8) Urine Color Yellow Urine Appearance Clear Urine pH 5.5 (4.5-8.0) Ur Specific [place] 1.010 (1.000-1.035) Urine Protein Trace H (Negative) Urine Glucose (UA) Negative (Negative) g/dL Urine Ketones Negative (NEGATIVE) Urine Occult Blood Trace-intact (Negative) Urine Nitrate Negative (Negative) Urine Bilirubin Negative (NEGATIVE) Urine Urobilinogen 0.2 (0.2) E.U./dL Ur Leukocyte Esterase Negative (NEGATIVE) Urine RBC 0-1/hpf (0-5/HPF) Urine WBC 1-5/hpf (0-5/HPF) Ur Squamous Epith Cells 0-1 /hpf (0-5/HPF) Amorphous Sediment 1+ Urine Bacteria Occasional (0-1) (None) Ur Culture Indicated? Cult not indicated 12/19/21 Range/Units 16:07 WBC (4.5-11.0) X10^3/uL RBC (4.0-5.2) X10^6/uL Hgb (12.0-16.0) g/dL Hct (36-46) % MCV (80-100) fL MCH (26-34) PG MCHC (30-36) % RDW (11.6-14.8) % Plt Count (150-400) X10^3/uL Neut % (Auto) (50-75) % Lymph % (Auto) (25-40) % [place] % (Auto) (3-14) % Eos % (Auto) (2-4) % Baso % (Auto) (0-2) % Neut # (Auto) (1356-9774) /uL Lymph # (Auto) (4245-5008) /uL [place] # (Auto) (0-900) /uL Eos # (Auto) (0-450) /uL Baso # (Auto) (0-100) /uL PT (10.1-12.7) SECONDS INR (0.9-1.3) APTT (26.4-36.2) SECONDS Sodium 142 (137-145) mmol/L Potassium 3.4 (3.4-5.1) mmol/L Chloride 106 (98-107) mmol/L Carbon Dioxide 30 (22-32) mmol/L BUN 26 H (7-17) mg/dL Creatinine 0.92 (0.52-1.04) mg/dL Estimated GFR > 60 (>60) mL/min BUN/Creatinine Ratio 28.3 H (6-22) Glucose 99 (80-110) mg/dL Calcium 8.3 L (8.4-10.2) mg/dL Total Bilirubin 1.2 (0.2-1.3) mg/dL AST 44 H (14-36) IU/L ALT 36 H (<35) IU/L Alkaline Phosphatase 211 H (38-126) U/L Total Protein 6.6 (6.3-8.2) g/dL Albumin 3.6 (3.5-5.0) g/dL Globulin 3.0 (1.7-4.1) g/dL Albumin/Globulin Ratio 1.2 (1.0-2.8) Urine Color Urine Appearance Urine pH (4.5-8.0) Ur Specific [place] (1.000-1.035) Urine Protein (Negative) Urine Glucose (UA) (Negative) g/dL Urine Ketones (NEGATIVE) Urine Occult Blood (Negative) Urine Nitrate (Negative) Urine Bilirubin (NEGATIVE) Urine Urobilinogen (0.2) E.U./dL Ur Leukocyte Esterase (NEGATIVE) Urine RBC (0-5/HPF) Urine WBC (0-5/HPF) Ur Squamous Epith Cells (0-5/HPF) Amorphous Sediment Urine Bacteria (None) Ur Culture Indicated? Discharge Plan Departure Patient Disposition: Admitted as Observation Clinical Impression: Bilateral fracture of pubic rami Admit Date/Time: 12/19/21 19:26 Admit Provider: Janice Raymond <Muriel House DO - Last Filed: 12/22/21 20:24> Cosign ED Attending Cosignature Attestation: Patient case discussed with myself. Patient has pubic rami fracture, CT abdomen pelvis obtained for further evaluation and patient ultimately admitted for difficulty with weight-bearing. Agree with current plan.
[2021-12-19 15:54] LABS: Appearance Urine UA CLEAR; Bilirubin Urine UA NEGATIVE (NEGATIVE); Color Urine UA YELLOW; Glucose Urine UA NEGATIVE (Negative); Ketones Urine UA NEGATIVE (NEGATIVE); Leukocyte Esterase Urine UA NEGATIVE (NEGATIVE); Nitrite Urine UA NEGATIVE (Negative); Occult Blood Urine UA TRACE-INTACT (Negative); Protein Urine UA TRACE (Negative); Urobilinogen Urine UA 0.2 E.U./dL (0.2)
[2021-12-19 16:01] LABS: RBC Urine 0-1/HPF (0-5/HPF); Squamous Epithelial Cell Urine 0-1 /HPF (0-5/HPF); WBC Urine 1-5/HPF (0-5/HPF); pH Urine UA 5.5 (4.5-8.0)
[2021-12-19 16:02] LABS: Amorphous Sediment Urine 1+; Bacteria Urine Occasional (0-1); Culture Indicated Urine Cult Not Indicated
[2021-12-19] MEDS: CYCLOBENZAPRINE 10 MG TABLET 5 MG PO (16:08)
[2021-12-19] MEDS: MORPHINE 2 MG/ML INJ IV ×2 (16:08→17:13)
[2021-12-19 16:43] VITALS: PULSE 80; RESP 16; O2SAT 99
--- NOTE | 2021-12-19 17:04 | DI.CT.S_ITS ---
PROCEDURE: CT ABDOMEN PELVIS W CON INDICATIONS: Pubic rami fracture TECHNIQUE: After the administration of oral and IV contrast, axial sections were acquired from the lung bases to the pubic symphysis. Coronal and sagittal reformats were performed. For radiation dose reduction, the following was used: automated exposure control, adjustment of mA and/or kV according to patient size. COMPARISON: [facility], CT, CT PEL WO CON, 06/19/2021, 5:09. [facility], CT, CT LUMBAR SPINE W CON, 12/16/2021, 21:23. FINDINGS: Image quality: Excellent. Lung bases: There is a small right-sided pleural effusion and a trace left-sided pleural effusion. Overlying enhancing atelectasis is seen. Heart: No significant findings. At least moderate coronary artery calcification is seen. ABDOMEN: Liver: Unremarkable. Gallbladder: Removed. Biliary ducts: Unremarkable. Pancreas: Unremarkable. Spleen: Unremarkable. Adrenal Glands: Unremarkable. Kidneys and Ureters: Unremarkable. Stomach and Bowel: Stomach, small bowel loops, and colon are unremarkable. Peritoneum: No abnormal intraperitoneal fluid. No free air. Ventral Wall: No hernia. Abdominal Nodes: No retroperitoneal or mesenteric adenopathy by size criteria. Vessels: Aorta and inferior vena cava are normal in size. PELVIS: Pelvic Organs: The uterus appears normal for age. No adnexal masses are seen. Bladder: The urinary bladder is abnormally prominent. Pelvic Nodes: No enlarged lymph nodes. Miscellaneous: No inguinal hernias are seen. Bones: There is a prominently displaced fracture of the left superior pubic ramus, at the level of the pubis. The bone at this site appears demineralized. There is a comminuted fracture of the left inferior pubic ramus. There is a mildly displaced fracture seen involving the right pubis, as on series 4, image 19. Mild sclerosis can be seen involving the right pubis. Numerous remote appearing thoracic spine compression deformities are seen, involving at least the T9, T12, L1, L2, L4, and L5 levels. Age-appropriate bony degenerative changes are seen. IMPRESSION: Prominent displaced fracture of the left superior pubic ramus involving the isthmus. There is also a comminuted fracture of the left inferior pubic ramus. A mildly displaced fracture is seen involving the right pubis. There is sclerosis seen involving the right pubis and there is apparent lysis seen involving the left pubis. However, on the 06/19/2021 examination, the bone at this site was within normal limits. The appearance of sclerosis and lysis may simply be artifactual on the current images. Abnormally prominent urinary bladder. On these images, no lencho findings of bladder laceration can be seen. However, please correlate for posttraumatic urinary retention. Bilateral pleural effusions are seen, right larger than left, with overlying atelectasis. Incidental note is made of: At least moderate coronary artery calcification Cholecystectomy Numerous remote appearing compression deformities Dictated by: Camilo Simental M.D. on 12/19/2021 at 17:28 Approved by: Camilo Simental M.D. on 12/19/2021 at 17:34
[2021-12-19 17:29] LABS: INR 1.1 (0.9-1.3); Prothrombin Time 11.9 SECONDS (10.1-12.7)
[2021-12-19 17:32] LABS: PTT Partial Thromboplastin Tim 27 SECONDS (26.4-36.2)
[2021-12-19 17:37] LABS: Add Manual Diff / Slide Review NO; Alanine Aminotransferase 36 IU/L (<35); Albumin 3.6 g/dL (3.5-5.0); Albumin Globulin Ratio 1.2 (1.0-2.8); Alkaline Phosphatase 211 U/L (38-126); Aspartate Aminotransferase 44 IU/L (14-36); BUN Creatinine Ratio 28.3 (6-22); Basophils Absolute Auto 100 /uL (0-100); Basophils Percent Auto 0.7 % (0-2); Bilirubin Total 1.2 mg/dL (0.2-1.3); Blood Urea Nitrogen 26 mg/dL (7-17); Calcium 8.3 mg/dL (8.4-10.2); Carbon Dioxide 30 mmol/L (22-32); Chloride 106 mmol/L (98-107); Eosinophils Absolute Auto 100 /uL (0-450); Eosinophils Percent Auto 1.1 % (2-4); Estimated Glomerular Filt Rate > 60 mL/min (>60); Glucose 99 mg/dL (80-110); HEMOLYSIS < 15 (0-50); Hematocrit 34.6 % (36-46); Hemoglobin 11.6 g/dL (12.0-16.0); Lymphocytes Absolute Auto 1900 /uL (1100-4500); Lymphocytes Percent Auto 20.4 % (25-40); Mean Corpuscular HGB Conc 33.6 % (30-36); Mean Corpuscular Hemoglobin 29.6 PG (26-34); Mean Corpuscular Volume 88.1 fL (80-100); Monocytes Absolute Auto 900 /uL (0-900); Monocytes Percent Auto 9.2 % (3-14); Neutrophils Absolute Auto 6400 /uL (1500-7000); Neutrophils Percent Auto 68.6 % (50-75); Platelet Count 255 X10^3/uL (150-400); Potassium 3.4 mmol/L (3.4-5.1); Red Blood Cell Count 3.93 X10^6/uL (4.0-5.2); Red Cell Distribution Width 15.2 % (11.6-14.8); Sodium 142 mmol/L (137-145); Total Protein 6.6 g/dL (6.3-8.2); White Blood Cell Count 9.3 X10^3/uL (4.5-11.0)
[2021-12-19 18:00] VITALS: BP 141/64; PULSE 80; RESP 16; O2SAT 92
[2021-12-19 18:57] VITALS: BP 153/73; PULSE 84; RESP 17; O2SAT 94
--- NOTE | 2021-12-19 18:57 | PC.NURSE ---
Placed pt on 2L O2, oxygen drop sat @ 89/90 while sleeping. O2 correction = 94-96 %O2
--- NOTE | 2021-12-19 19:34 | CM.IDA ---
DCP Assessment Patient is 86 y/o female who presents to ED due to concern for thigh pain. Per CT scan patient has a prominent displaced fracture of the left superior ramus. Patient has hx of CHF, bilateral lower extremity edema, hx of fractures of the lumbar spine, chronic kidney disease, & osteoporosis. Patient's PCP is Dr. Ndiaye, patient has Medicare/AARP insurance. Patient resides at [facility] in Assisted Living, per patient's daughter there is a higher level of ALY care for patient at [facility]. ETL INFORMATICA ARCHITECT provides daughter with senior resource guide to identify higher level of care needs. Patient has hx of SNF rehab stay at [facility] in June 2021. Per ED provider Charles Muro PA-C patient is accepted to acute care due to fracture and further medical evaluation needed at this time. Plan: patient to be admitted to acute care, DCP to f/u with POC. JIM Ordonez Discharge Planning/Care Management CM Discharge Assessment Start: 12/19/21 19:27 Freq: Status: Active Protocol: Document 12/19/21 19:27 LN (Rec: 12/19/21 19:34 LN [id number]) Discharge Planning Assessment Assigned Pulp Mixer JIM Lopez Advance Directives? Yes: POLST Advance Directives on File No History Provided By Medical Record Has Patient been admitted in last 30 No days? Prior Living Arrangements Assisted Living Household Members spouse Type of transporation used prior to Relies on Others admit Facility Name Admitted From: [facility] Independent with ADL's No Is patient alert and oriented? Yes Needs Assistance With Toileting Caregiver for Another No Comment Will depend if she can ambulate before going back to [facility] Transportation Arrangement Children, she has a son that lives in town, does not drive. Review Status In Process Please Provide Date Initial DC 12/19/21 Assessment Was Performed
[2021-12-19 19:50] LABS: COVID19 -Nasal RAPID Negative (Negative)
[2021-12-19 20:27] VITALS: BP 194/73; PULSE 90; RESP 18; TEMP 36.7; O2SAT 99
--- NOTE | 2021-12-19 21:41 | PM.HP.1 ---
History of Present Illness History of Present Illness Date Patient Seen: 12/19/21 Time Patient Seen: 21:41 Chief complaint: Left leg pain, found to have pubic rami fx Narrative: Rhoda Lane is an 86-year-old female resident of [facility] with the history of CHF, bilateral lower extremity edema, history of lumbar spine fractures, chronic kidney disease and osteoporosis was brought in by her daughter for worsening left leg pain. She was seen in the emergency department earlier this week for the same issue and was discharged on gabapentin 100 mg at bedtime. Patient appears to be little bit confused as to the timeline and does not recall having fallen but she was found to have a superior and inferior pubic ramus fracture. She continues to have left sided leg and hip pain. She does not endorse knowing what happened prior to being seen in the ED and denies loosing consciousness, denies shortness of breath, chest pain, nausea or vomiting, abdominal pain, changes in bladder or bowel patterns or control, dysurea, or numbing or tingling. She does state if she stays still her pain is controlled. Ultrasound of the left leg did not indicate a DVT, x-ray left femur ruled out femur fracture but did identify possible left pubic fractures, knee x-ray was negative, x-ray of the tibia and fibula indicated demineralization but no fracture, abdomen pelvis CT indicated a Prominent displaced fracture of the left superior pubic ramus involving the isthmus. There is also a comminuted fracture of the left inferior pubic ramus. A mildly displaced fracture seen involving the right pubis.Patient is afebrile but her blood pressure is elevated 184/73, heart rate 90, respiratory rate 18, oxygen saturation of 99% on 2 L, she weighs 47.6 kg with a BMI of 21.2. She is mildly anemic with a hemoglobin and hematocrit of 11.6 and 34.6, though this appears to be her baseline, BUN is mildly elevated at 26 though she has a normal creatinine and GFR, calcium was 8.3 but albumin is within normal limits, ALT is 36 AST is 44, UA is negative for UTI, and COVID-19 PCR is negative. Patient History Medical History Bilateral lower extremity edema Cataracts, bilateral (~2013) CKD (chronic kidney disease) stage 3, GFR 30-59 ml/min Congestive heart failure of unknown etiology Fatigue Fractures (2000) Glaucoma (~2017) Gout (2001) Hypertension (Unknown) Leg cramps Mobility impaired Muscular deconditioning Osteoporosis (~1998) POLST (Physician Orders for Life-Sustaining Treatment) Swelling of both ankles Urinary tract infection Surgical History History of surgery on arm (~2000) History of tonsillectomy (1961) Status post cholecystectomy (1995) Family & Social History Family History Father No problems noted. Mother Cancer Social History: household members spouse Prior Living Arrangements Assisted Living Safety & Behavioral: Feels Safe in Current Yes Environment Been Physically Hurt or No Threatened By a Person Tobacco & Substance use: Smoking Status Current some day smoker alcohol intake frequency holiday/special occasion Substance Use Type does not use Meds Home Medications and Allergies Home Medications Medication Instructions Recorded Confirmed Type timolol maleate 0.25 % eye drops 1 drp OPHTH DAILY #0 09/09/17 12/19/21 History (Timoptic) Disabled Parking Permit #1 ea 10/17/21 12/19/21 Rx amlodipine 2.5 mg tablet 2.5 mg PO DAILY #90 tab 12/05/21 12/19/21 Rx furosemide 40 mg tablet 40 mg PO QAM #90 tab 12/05/21 12/19/21 Rx Allergies Allergy/AdvReac Type Severity Reaction Status Date / Time Penicillins [PENICILLINS] Allergy Unknown Verified 12/19/21 11:14 Review of Systems Review of Systems ROS: Yes All systems reviewed with the patient and are negative except as otherwise documented Exam Vital Signs (past 8 hours): - 12/19/21 16:43 12/19/21 18:00 12/19/21 18:57 Pulse Rate 80 80 84 Respiratory Rate 16 16 17 Blood Pressure 141/64 H 153/73 H Pulse Oximetry 99 92 94 Oxygen Delivery Method Nasal Cannula Oxygen Flow Rate 2 Narrative Exam Narrative: Gen: Alert, oriented, well-developed very soft spoken 86 y.o. female, lethargic HEENT: normocephalic, atraumatic, conjunctiva clear, sclera non-icteric, oral mucosa pink and moist Neck: supple, full ROM, no JVD, trachea is midline Resp: Lungs CTA, non-labored breathing CV: RRR, no murmur or rubs Abd: soft, non-tender, normoactive BTs Skin: thin and friable, dry and intact Neuro: Alert and oriented X 4 w/no focal deficits. Speech clear and coherent. Extremities: moves all 4 extremities, is ambulatory, negative Elva?s sign Psyche: normal mood and affect. Objective Labs Result Diagrams: 12/19/21 16:07 12/19/21 16:07 Labs: Laboratory Results - last 24 hr 12/19/21 12/19/21 12/19/21 15:25 16:07 16:07 WBC 9.3 RBC 3.93 L Hgb 11.6 L Hct 34.6 L MCV 88.1 MCH 29.6 MCHC 33.6 RDW 15.2 H Plt Count 255 Neut % (Auto) 68.6 Lymph % (Auto) 20.4 L [place] % (Auto) 9.2 Eos % (Auto) 1.1 L Baso % (Auto) 0.7 Neut # (Auto) 6400 Lymph # (Auto) 1900 [place] # (Auto) 900 Eos # (Auto) 100 Baso # (Auto) 100 PT 11.9 INR 1.1 APTT 27 Sodium Potassium Chloride Carbon Dioxide BUN Creatinine Estimated GFR BUN/Creatinine Ratio Glucose Calcium Total Bilirubin AST ALT Alkaline Phosphatase Total Protein Albumin Globulin Albumin/Globulin Ratio Urine Color Yellow Urine Appearance Clear Urine pH 5.5 Ur Specific [place] 1.010 Urine Protein Trace H Urine Glucose (UA) Negative Urine Ketones Negative Urine Occult Blood Trace-intact Urine Nitrate Negative Urine Bilirubin Negative Urine Urobilinogen 0.2 Ur Leukocyte Esterase Negative Urine RBC 0-1/hpf Urine WBC 1-5/hpf Ur Squamous Epith Cells 0-1 /hpf Amorphous Sediment 1+ Urine Bacteria Occasional (0-1) Ur Culture Indicated? Cult not indicated SARS-CoV-2 (PCR) 12/19/21 12/19/21 16:07 19:30 WBC RBC Hgb Hct MCV MCH MCHC RDW Plt Count Neut % (Auto) Lymph % (Auto) [place] % (Auto) Eos % (Auto) Baso % (Auto) Neut # (Auto) Lymph # (Auto) [place] # (Auto) Eos # (Auto) Baso # (Auto) PT INR APTT Sodium 142 Potassium 3.4 Chloride 106 Carbon Dioxide 30 BUN 26 H Creatinine 0.92 Estimated GFR > 60 BUN/Creatinine Ratio 28.3 H Glucose 99 Calcium 8.3 L Total Bilirubin 1.2 AST 44 H ALT 36 H Alkaline Phosphatase 211 H Total Protein 6.6 Albumin 3.6 Globulin 3.0 Albumin/Globulin Ratio 1.2 Urine Color Urine Appearance Urine pH Ur Specific [place] Urine Protein Urine Glucose (UA) Urine Ketones Urine Occult Blood Urine Nitrate Urine Bilirubin Urine Urobilinogen Ur Leukocyte Esterase Urine RBC Urine WBC Ur Squamous Epith Cells Amorphous Sediment Urine Bacteria Ur Culture Indicated? SARS-CoV-2 (PCR) Negative Assessment & Plan Assessment & Plan narrative: Rhoda Lane will placed for observation to further assess her ability to participate in PT and to optimize placement that is safe for her. 1. Pubic rami fracture, multiple locations, acute, present on admission Pain controlled with scheduled Tylenol, tramadol, oxycodone, and IV morphine as needed PT OT evaluation in the morning Orthopedics informed ED that this was nonoperable but that they would be available if needed 2. Essential hypertension, not well controlled likely due to pain Patient normally takes amlodipine 2.5 mg in the morning and this will be continued She is ordered for 1 time dose of oral immediate release metoprolol 12.5 mg x 1 3. Glaucoma, chronic Continues home doses of dorzolamide/timolol and latanoprost eye drops VTE Prophylaxis: Wells risk score 3 Enoxaparin 40 mg subQ once daily Patient is placed into observation as her stay is not expected to exceed 2 midnights. FEN: IV fluids: saline lock, diet: heart healthy, labs: CBC, C/BMP, liver enzymes, Mag, PT/INR Consultants None Dispo: probable discharge to rehab Code status: DNR/DNI with limited treatment as discussed with the patient who identifies her , Svend as her surrogate and POA. [X] I have utilized all available immediate resources to obtain, update, or review of the patient's current medications COVID-19 COVID-19 status: Negative Result date/Date tested (Pos, Neg/Pending): 12/20/21 Scores Wells' Criteria for PE Clinical signs and symptoms of DVT: No PE is #1 Dx or equally likely: No Heart rate > 100: Yes Immobilization at least 3 days or surg in previous 4 weeks: Yes History of PE or DVT: No Hemoptysis: No Malignancy w/Treatment within 6 months or palliative: No Wells' PE Score total: 3.0 Quality VTE Deep Vein Thrombosis/Pulmonary Embolism Present on Admission: No MIPS - Admit I confirm the patient?s Advance Care Plan is present, Code status is documented, Surrogate decision maker is in patient?s record [If Yes, STOP here]: Yes MIPS - DC The patient has current or prior documentation of left ventricular ejection fraction (LVEF) less than 40%, or moderate or severely depressed left ventricular systolic function.: No
[2021-12-19 21:59] VITALS: BMI 21.2
[2021-12-20] VITALS (12 sets, daily range): BP systolic 146–191; BP diastolic 63–93; PULSE 63–84; RESP 16–19; TEMP 36.1–37.3; O2SAT 91–99
[2021-12-20] MEDS: METOPROLOL IR 25 MG TABLET 12.5 MG PO (00:15)
[2021-12-20] MEDS: ACETAMINOPHEN 325 MG TABLET 650 MG PO ×3 (00:53→12:34)
[2021-12-20] MEDS: TRAMADOL 50 MG TABLET PO (05:01)
[2021-12-20 05:29] LABS: Add Manual Diff / Slide Review NO; Basophils Absolute Auto 100 /uL (0-100); Basophils Percent Auto 0.6 % (0-2); Eosinophils Absolute Auto 200 /uL (0-450); Eosinophils Percent Auto 2.5 % (2-4); Hematocrit 33.8 % (36-46); Hemoglobin 11.4 g/dL (12.0-16.0); Lymphocytes Absolute Auto 1400 /uL (1100-4500); Lymphocytes Percent Auto 17.6 % (25-40); Mean Corpuscular HGB Conc 33.8 % (30-36); Mean Corpuscular Hemoglobin 29.4 PG (26-34); Monocytes Absolute Auto 600 /uL (0-900); Monocytes Percent Auto 7.9 % (3-14); Neutrophils Absolute Auto 5600 /uL (1500-7000); Neutrophils Percent Auto 71.4 % (50-75); Platelet Count 239 X10^3/uL (150-400); Red Blood Cell Count 3.88 X10^6/uL (4.0-5.2); Red Cell Distribution Width 15.3 % (11.6-14.8); White Blood Cell Count 7.9 X10^3/uL (4.5-11.0)
[2021-12-20 05:32] LABS: Alanine Aminotransferase 580 IU/L (<35); Albumin 3.6 g/dL (3.5-5.0); Albumin Globulin Ratio 1.2 (1.0-2.8); Alkaline Phosphatase 619 U/L (38-126); BUN Creatinine Ratio 22.7 (6-22); Bilirubin Conjugated 0.1 md/dL (0.0-0.3); Bilirubin Total 2.5 mg/dL (0.2-1.3); Bilirubin Unconjugated 1.7 mg/dL (0.0-1.1); Blood Urea Nitrogen 20 mg/dL (7-17); Calcium 8.5 mg/dL (8.4-10.2); Carbon Dioxide 31 mmol/L (22-32); Chloride 105 mmol/L (98-107); Estimated Glomerular Filt Rate > 60 mL/min (>60); Glucose 89 mg/dL (80-110); HEMOLYSIS < 15 (0-50); Magnesium 2.3 mg/dL (1.6-2.3); Potassium 3.6 mmol/L (3.4-5.1); Sodium 141 mmol/L (137-145); Total Protein 6.6 g/dL (6.3-8.2)
[2021-12-20 05:39] LABS: Aspartate Aminotransferase 842 IU/L (14-36)
--- NOTE | 2021-12-20 05:58 | PC.NURSE ---
at 0502, this nurse administered pain medication (tramadol and tylenol) to pt while having pt take a sip of water in between med administration. On pt third and last sip of water, pt started to aspirate. This nurse together with aide place pt upright and started tapping on pt's back. Noticing that the canister was not attach to the suction and pt having increase difficulty in breathing, this nurse asked the aide to press the code button. As more help arrived, pt stopped aspirating and started breathing normal. Pt O2 sat was 98% on RA in continuous monitoring.
[2021-12-20] MEDS: AMLODIPINE 5 MG TABLET 2.5 MG PO (09:06)
[2021-12-20] MEDS: ENOXAPARIN 40 MG/0.4 ML SYRINGE SUBCUT (09:08)
[2021-12-20] MEDS: DORZOLAMIDE/TIMOLOL OPHTH 10 ML 1 DROPS EYE-BOTH ×2 (09:08→21:20)
--- NOTE | 2021-12-20 10:31 | PT.IIE ---
Surgical History (Last Reviewed 12/20/21 @ 00:02 by KATRIN Matthew) History of tonsillectomy (1962) Status post cholecystectomy (1995) Medical History (Last Reviewed 12/20/21 @ 00:02 by KATRIN Matthew) Bilateral lower extremity edema Cataracts, bilateral (~2013) CKD (chronic kidney disease) stage 3, GFR 30-59 ml/min Congestive heart failure of unknown etiology Fatigue Fractures (2000) Glaucoma (~2016) Gout (2001) Hypertension (Unknown) Leg cramps Mobility impaired Muscular deconditioning Osteoporosis (~1998) POLST (Physician Orders for Life-Sustaining Treatment) Swelling of both ankles Urinary tract infection Physical Therapy Inpatient Evaluation/Re-Eval M1 PT/OT-IP Prior Functional Status Start: 12/20/21 08:41 Freq: NEEDED Status: Active Protocol: Document 12/20/21 10:31 AW (Rec: 12/20/21 12:21 AW [id number]) Medical Review Prior Functional Status Medical History Reviewed Yes Communication Pt is able to make needs known but with confusion and needing increased processing time. Mobility and Gait Pt states she has been using a 4WW to get around her apartment. She uses a wheelchair to go to the dining dominguez. She had a fall with lumbar compression fracture in June 2021 and went to rehab. She does not recall falling recently but has multiple pubic rami fractures. Activities of Daily Living and IADL's Pt states she has facility assist with dressing and sometimes showering. She and her spouse go to the dining dominguez for lunch and dinner. Social History Household Members spouse Living Arrangements Assisted Living Number of Stairs To Enter/Railing? Pt uses elevator to access her second floor apartment. Home Environment Standard Height Toilet,Walk in Shower,Elevator Home Equipment Grab Bars Near Toilet,Grab Bars In Shower Additional Social History Comment Pt and her spouse moved in to [facility] last year. They were independent but now receive some level of assist per pt report. Pt's spouse uses bilateral walking sticks for stabilty. M2 PT-IP Current Condition Start: 12/20/21 08:41 Freq: NEEDED Status: Active Protocol: Document 12/20/21 10:31 AW (Rec: 12/20/21 12:21 AW [id number]) Physical Therapy Current Condition Current Condition Evaluation Date 12/20/21 Treatment Diagnosis pubic rami fractures; LLE pain ; difficulty in walking Onset Date M3 PT-IP Subjective Start: 12/20/21 08:41 Freq: NEEDED Status: Active Protocol: Document 12/20/21 10:31 AW (Rec: 12/20/21 12:21 AW [id number]) Subjective Physical Therapy Visit Type Type Initial Evaluation Visit Start Time 09:55 Visit Stop Time 10:31 Total Visit Minutes 36 Notes Per ED notes, orthopedics was consulted. Ortho assessment was fractures not operable and pt ok to WBAT. Physical Therapy Visit Comments Patient Comments Pt is willing to participate with PT Therapy Pain Assessment Pain When Pain Assessed During Mobility Pain Present Pain Present Pain Reported M4 PT-IP Mobility and Gait Start: 12/20/21 08:41 Freq: NEEDED Status: Active Protocol: Document 12/20/21 10:31 AW (Rec: 12/20/21 12:43 AW [id number]) PT-Bed Mobility Assessment Supine to Sit Supine to Sit Maximum Assistance,1 Person Assistance,Head of Bed Elevated Scooting Scooting to Edge of Bed Dependent PT-Transfer Assessment Sit to and From Stand Sit to and from Stand Maximum Assistance,1 Person Assistance,2 Person Assistance ,Use of Upper Extremities Equipment Transfer Assistive Device Gait Belt,Front Wheeled Walker Orthotic/Prosthetic Devices or Brace: No Transfers Transfer Destination Chair Transfer Technique Stand Step Pivot Transfer Ability Level of Assist Maximum Assistance,1 Person Assistance,2 Person Assistance ,Use of Upper Extremities Comments Mobility Comments Pt was sitting up in bed as PT arrived. BP was 162/77 HR 70. Pt agreed to sit up EOB and was able to move both legs toward right side with max assist. Ultimately, PT provided max assist via draw sheet to turn pt to sitting EOB and total assist to scoot forward. PT blocked pt's feet and provided max cues, max assist as pt attempted to stand. She was able to clear her hips from the bed but remained in flexed posture with strong retro lean. Pt needed max assist via gait belt and FWW stabilization to maintain standing but did stand for ~90 seconds while RN removed soiled brief. Pt sat EOB with max assist. After rest break, pt agreed to stand again after PT assisted pt to move feet back toward the bed . Pt stood max A with continued retro lean and was unable to shfit weight forward in response to cues. She was minimally able to move her left foot forward but complained of severely increased pain with LLE weightbearing and could only slide her right foot. Pt took 3 steps in this fashion but could not progress. RN moved the bed and placed the chair ( with waffle cushion) behind the pt and pt was directed to sit. Pt needed max A to scoot back on the chair. She was positioned with legs elevated and warm blankets. She was left with call light in her lap, chair alarm on. RN remained in the room. Gait Assessment Gait Gait Assistance Required: Maximum Assistance,1 Person Assist,2 Person Assist Distance (Feet) 2 Assistive Devices Assistive Device Gait Belt,Front Wheeled Walker Orthotic/Prosthetic Devices or Brace: No Gait Deviations General Gait Pattern Antalgic,Decreased Stride Length,Decreased Feet Clearance,Flexed Trunk Factors Limiting Gait Function Factors Limiting Gait Function Decreased Activity Tolerance, Decreased Strength,Difficulty Following Directions,Limited Range of Motion,Pain,Poor Balance,Poor Safety Awareness Comments Gait Comments Steps taken during transfer only. See mobility comments for details. PT-Balance Assessment Sitting Balance and Reactions Static Sitting Balance Ability Fair Dynamic Sitting Balance Ability Fair Standing Balance and Reactions Static Standing Balance Ability Poor Dynamic Standing Balance Ability Poor Device Used FWW M5 PT-IP Objective Assessments Start: 12/20/21 08:41 Freq: NEEDED Status: Active Protocol: Document 12/20/21 10:31 AW (Rec: 12/20/21 12:43 AW [id number]) Orientation Orientation/Cognition Level of Alertness Confusional State Orientation Name,Year,Place,Situation Language Function Ability No Deficits Noted Safety Awareness Decreased Safety Awareness Gross Range of Motion Lower Extremity ROM Assessment Within Functional Limits Strength Lower Extremity Strength Assessment Bilaterally Impaired Hip R 3+/5; L 3-/5 Knee 4/5 Ankle 4/5 Sensation Assessment Sensation Gross Sensation WNL Muscle Tone Muscle Tone WNL Yes M6 PT-IP Treatment Start: 12/20/21 08:41 Freq: NEEDED Status: Active Protocol: Document 12/20/21 10:31 AW (Rec: 12/20/21 12:43 AW [id number]) Physical Therapy Treatment Education Education Provided Weight Bearing Status,Safety M7 PT-IP Assessment and Plan Start: 12/20/21 08:41 Freq: NEEDED Status: Active Protocol: Document 12/20/21 10:31 AW (Rec: 12/20/21 12:43 AW [id number]) PT Summary Assessment and Plan Potential Rehabilitation Potential Fair Status of Condition at Evaluation Evolving Summary Impairments Pain,Strength,Balance, Cognition,Bed Mobility, Transfers,Gait,Activity Tolerance Assessment Summary Rhoda is an 86 yo woman with CHF, CKD, osteoporosis, and falls history resulting in lumbar compression fractures and now pubic rami fractures. She does not recall falling. She lives with her spouse at [facility] and receives some level of assist from facility staff including dressing and shower assist. She states she has been able to walk in her apartment with 4WW and uses a wheelchair to go to the dining room. CLOF: Pt is requiring max assist x 1 -2 for bed mobility and transfers with FWW at this assessment. She will require SNF rehab to improve strength and mobility independence. It is possible she is no longer safe for her current environment and will require increased level of assist. Goals Bed Mobility Goal Minimal Assistance Transfer Goal Minimal Assistance,Front Wheeled Walker Gait Goal Minimal Assistance,Front Wheel Walker Gait Distance 75 Days to Meet Goals 10 Frequency of Treatment Frequency Of Treatment Once a Day Treatment Plan Physical Therapy Treatment Plan Bed Mobility Training,Transfer Training,Gait Training, Therapeutic Exercise,Balance Retraining,Discharge Planning, Hot or Cold Pack,Neuromuscular Re-ed Other Recommendations and Next Treatment standing tolerance; mobility Focus as tolerated Precautions Other Precautions falls Weight Bearing Status Weight Bearing Status Weight Bear as Tolerated Recommendations To Nursing Amount of Assist Needed 2 Person Assist Discharge Recommendations PT Discharge Recommendations SNF Rehab Transportation Needs at Discharge Wheelchair/Cabulance
--- NOTE | 2021-12-20 10:37 | PC.NURSE ---
Pt up to chair with max assist, waffle cushion placed under her bottom to protect her skin. New brief placed. Pt states she is comfortable, lip balm provided as well as water. Chair alarm on for safety. Pt denies needs at this time but agrees to call for assistance as needed and to not try to get up without help. Call light on Pt's lap.
--- NOTE | 2021-12-20 13:25 | OT.IP.EVAL ---
Past Medical History (Last Reviewed 12/20/21 @ 00:02 by KATRIN Matthew) Bilateral lower extremity edema Cataracts, bilateral (~2013) CKD (chronic kidney disease) stage 3, GFR 30-59 ml/min Congestive heart failure of unknown etiology Fatigue Fractures (2000) Glaucoma (~2016) Gout (2001) History of surgery on arm (~2000) Hypertension (Unknown) Leg cramps Mobility impaired Muscular deconditioning Osteoporosis (~1998) POLST (Physician Orders for Life-Sustaining Treatment) Swelling of both ankles Urinary tract infection Surgical History (Last Reviewed 12/20/21 @ 00:02 by KATRIN Matthew) History of surgery on arm (~2000) History of tonsillectomy (1961) Status post cholecystectomy (1995) Occupational Therapy Inpatient Evaluation/Re-Eval M1 PT/OT-IP Prior Functional Status Start: 12/20/21 08:41 Freq: NEEDED Status: Active Protocol: Document 12/20/21 13:25 [facility] (Rec: 12/20/21 14:50 [facility] [id number]) Medical Review Prior Functional Status Medical History Reviewed Yes Communication Pt is able to make needs known but with confusion and needing increased processing time. Mobility and Gait Pt states she has been using a 4WW to get around her apartment. She uses a wheelchair to go to the dining dominguez. She had a fall with lumbar compression fracture in June 2021 and went to rehab. She does not recall falling recently but has multiple pubic rami fractures. Activities of Daily Living and IADL's Pt states she has facility assist with dressing, toileting and sometimes showering. She and her spouse go to the dining dominguez for lunch and dinner. Social History Household Members spouse Living Arrangements Assisted Living Number of Stairs To Enter/Railing? Pt uses elevator to access her second floor apartment. Home Environment Standard Height Toilet,Walk in Shower,Elevator Home Equipment Grab Bars Near Toilet,Grab Bars In Shower Additional Social History Comment Pt and her spouse moved in to [facility] last year. They were independent but now receive some level of assist per pt report. Pt's spouse uses bilateral walking sticks for stability. M2 OT-IP Current Condition Start: 12/20/21 14:32 Freq: Status: Active Protocol: Document 12/20/21 13:25 [facility] (Rec: 12/20/21 14:50 [facility] [id number]) Occupational Therapy Current Condition Current Condition Evaluation Date 12/20/21 Treatment Diagnosis Public rami fx, decreased mobility Diagnosis Onset Date 12/19/21 M3 OT- IP Subjective and Pain Start: 12/20/21 14:32 Freq: Status: Active Protocol: Document 12/20/21 13:25 [facility] (Rec: 12/20/21 14:50 [facility] [id number]) OT- Subjective Occupational Therapy Visit Type Type Initial Evaluation Visit Start Time 11:30 Visit Stop Time 13:25 Total Visit Minutes 33 Notes Pt seen for split treatment [id number] and [id number]. Pt's daughter in law present for the first part of OT eval. Occupational Therapy Visit Comments Patient Comments Pt is cooperative and wanting to use the BSC. Patient/Caregiver Goals To get better. OT Pain Assessment Pain When Pain Assessed At Rest Pain Present Pain Present Denied Pain M4 OT- IP ADL's Start: 12/20/21 14:32 Freq: Status: Active Protocol: Document 12/20/21 13:25 [facility] (Rec: 12/20/21 14:50 [facility] [id number]) OT [id number] Comments OT Self-Feeding Comments NOt at meal time. OT ADL-Grooming General Evaluation Grooming Ability Standby Assistance Areas Needing Assistance Retrieving/Set-up of Grooming Items Comments OT Grooming Comments while seated OT ADL-Oral Care General Eval Oral Care Ability Standby Assistance Areas of Assistance Retrieving/Set-Up of Items Comments Oral Care Comments WHile seated OT ADL-Dressing General Eval Lower Body Dressing Ability Maximum Assistance,Total Assistance Areas Needing Assistance Underpants/Brief,Socks OT ADL-Toileting General Evaluation Toileting Ability Maximum Assistance Areas Needing Assistance Manage Clothing,Perform Perineal Hygiene Comments OT Toileting Comments MAXA X 1 to stand with FWW while another person assist to wipe, prior pt was able to stand to wipe on her own. Pt attempted to wipe while seated but not able to completely clean herself and needing assist. OT ADL-Bathing Comments OT Bathing Comments Not performed. M5 OT- IP IADL's Start: 12/20/21 14:32 Freq: Status: Active Protocol: Document 12/20/21 13:25 [facility] (Rec: 12/20/21 14:50 [facility] [id number]) OT-Instrumental Activities of Daily Living Home Safety Awareness Home Safety Comments At this time if pt going home would need 24/7 assist for all needs. Medication Management Medication Management Caregiver Administers Money Management Money Management Caregiver Provides Assistance Meal Preparation Meal Preparation Caregiver Provides Assist Wind Science And Planning Wind Science And Planning Caregiver Provides Assist M6 OT- IP Functional Cognition Start: 12/20/21 14:32 Freq: Status: Active Protocol: Document 12/20/21 13:25 [facility] (Rec: 12/20/21 14:50 [facility] [id number]) Cognitive Factors Limiting Selfcare Function Cognitive Ability Level of Alertness Alert Patient Orientation Name Attention Span Ability Capable of Focused Attention, Capable of Sustained Attention Ability to Follow Commands Able to Follow One Step Commands with Increased Time, Able to Follow One Step Commands with Repetition Cognitive Comments Cognitive Assessment Comments Pt able to follow commands for ADL needs. Hungarian is not pt' s primary language but able to follow simple commands. M7 OT- IP Mobility and Balance Start: 12/20/21 14:32 Freq: Status: Active Protocol: Document 12/20/21 13:25 [facility] (Rec: 12/20/21 14:50 [facility] [id number]) OT- Bed Mobility Assessment Sit to Supine Sit to Supine Assist Maximum Assistance,1 Person Assistance OT-Transfer Assessment Sit to and From Stand Sit to and from Stand Moderate Assistance,2 Person Assistance Transfers Transfer Ability Moderate Assistance,2 Person Assistance Technique Transfer Destination Bed,Bedside Commode,Chair Transfer Technique Stand Step Pivot Devices Transfer Assistive Devices Gait Belt,Front Wheeled Walker Comments Mobility Comments MODA X2 to stand to FWW, pt tends to lean backwards on her heels. Pt needing assist for balance, FWW guidance and assist to help lower down to the BSC and bed. OT- Balance Assessment Sitting Balance and Reactions Static Sitting Balance Ability Fair Standing Balance and Reactions Static Standing Balance Ability Poor Dynamic Standing Balance Ability Poor M8 OT- IP Objective Assessments Start: 12/20/21 14:32 Freq: Status: Active Protocol: Document 12/20/21 13:25 [facility] (Rec: 12/20/21 14:50 [facility] [id number]) OT Gross Range of Motion Upper Extremity Range of Motion ROM Impairments grossly WFL OT Strength Comments Strength Comments Not formally tested, at least 3-/5 OT-Muscle Tone Assessment Muscle Tone WNL Yes M9 OT- IP Assessment and Plan Start: 04/20/22 14:32 Freq: Status: Active Protocol: Document 12/20/21 13:25 [facility] (Rec: 12/20/21 14:50 [facility] [id number]) OT Summary Assessment and Plan Potential Rehabilitation Potential Fair Analytic Complexity at Evaluation Moderate Summary OT Impairments Pain,Strength,Balance, Functional Cognition, Functional Mobility,Dressing, Toileting,Bathing,Toilet Transfers,Shower Transfers, Activity Tolerance Progress Towards Goals Slow Progress due to Pain,Slow Progress due to Medical Issues,Slow Progress due to Activity Tolerance Assessment Summary Pt MOD complexity and due to recent fall and pubic fracture now needing extensive two person assist for all mobility and ADl needs. Pt will greatly benefit from skilled rehab. Goals Dressing Goal Moderate Assistance Toileting Goal Moderate Assistance Bathing Goal Moderate Assistance Toilet Transfer Goal Standby Assistance Shower Transfer Goal Standby Assistance Days to Meet Goals 30 Frequency of Treatment Frequency Of Treatment Once a Day Treatment Plan OT Treatment Plan ADL Training,Functional Mobility,Patient/Family Education,Discharge Planning Other Treatment Recommendations and Next Transfer to [facility] with MAX Ax1 Treatment Focus with FWW. Discharge Recommendations OT Discharge Recommendations SNF Rehab Transportation Needs at Discharge Wheelchair/Cabulance
--- NOTE | 2021-12-20 16:36 | P.PN_ITS ---
Subjective Subjective Date Patient Seen: 12/20/21 Interval history: 86-year-old female admitted to the hospital with a pubic ramus fracture, she has history of hypertension, as well as glaucoma. Patient reports no pain as long she is not moving. She is not short of breath Exam Vital Signs (past 8 hours): - 12/20/21 10:35 12/20/21 13:42 12/20/21 15:29 Temperature 97.8 F 97.4 F L 99.1 F Pulse Rate 71 63 65 Respiratory Rate 16 16 16 Blood Pressure 162/77 H 151/76 H 146/63 H Pulse Oximetry 99 95 93 Oxygen Delivery Method Nasal Cannula Oxygen Flow Rate 0 Narrative Exam Narrative: Delightful female lying in bed in no obvious distress Resp Other: Lungs clear to auscultation Cardio Other: Cardiac exam: Regular rate and rhythm normal S1-S2, with a 3/6 systolic ejection murmur GI Other: Abdomen soft and nontender Extrem Other: Extremity no edema Objective Labs Result Diagrams: 12/20/21 04:57 12/20/21 04:57 Labs: Laboratory Results - last 24 hr 12/19/21 12/19/21 12/19/21 16:07 16:07 16:07 WBC 9.3 RBC 3.93 L Hgb 11.6 L Hct 34.6 L MCV 88.1 MCH 29.6 MCHC 33.6 RDW 15.2 H Plt Count 255 Neut % (Auto) 68.6 Lymph % (Auto) 20.4 L Harper % (Auto) 9.2 Eos % (Auto) 1.1 L Baso % (Auto) 0.7 Neut # (Auto) 6400 Lymph # (Auto) 1900 Harper # (Auto) 900 Eos # (Auto) 100 Baso # (Auto) 100 PT 11.9 INR 1.1 APTT 27 Sodium 142 Potassium 3.4 Chloride 106 Carbon Dioxide 30 BUN 26 H Creatinine 0.92 Estimated GFR > 60 BUN/Creatinine Ratio 28.3 H Glucose 99 Calcium 8.3 L Magnesium Total Bilirubin 1.2 Conjugated Bilirubin Unconjugated Bilirubin AST 44 H ALT 36 H Alkaline Phosphatase 211 H Total Protein 6.6 Albumin 3.6 Globulin 3.0 Albumin/Globulin Ratio 1.2 SARS-CoV-2 (PCR) 12/19/21 12/20/21 12/20/21 19:30 04:57 04:57 WBC 7.9 RBC 3.88 L Hgb 11.4 L Hct 33.8 L MCV 87.0 MCH 29.4 MCHC 33.8 RDW 15.3 H Plt Count 239 Neut % (Auto) 71.4 Lymph % (Auto) 17.6 L Harper % (Auto) 7.9 Eos % (Auto) 2.5 Baso % (Auto) 0.6 Neut # (Auto) 5600 Lymph # (Auto) 1400 Harper # (Auto) 600 Eos # (Auto) 200 Baso # (Auto) 100 PT INR APTT Sodium 141 Potassium 3.6 Chloride 105 Carbon Dioxide 31 BUN 20 H Creatinine 0.88 Estimated GFR > 60 BUN/Creatinine Ratio 22.7 H Glucose 89 Calcium 8.5 Magnesium 2.3 Total Bilirubin 2.5 H Conjugated Bilirubin 0.1 Unconjugated Bilirubin 1.7 H AST 842 H ALT 580 H Alkaline Phosphatase 619 H D Total Protein 6.6 Albumin 3.6 Globulin 3.0 Albumin/Globulin Ratio 1.2 SARS-CoV-2 (PCR) Negative [facility] Medical History Bilateral lower extremity edema Cataracts, bilateral (~2013) CKD (chronic kidney disease) stage 3, GFR 30-59 ml/min Congestive heart failure of unknown etiology Fatigue Fractures (2000) Glaucoma (~2016) Gout (2001) Hypertension (Unknown) Leg cramps Mobility impaired Muscular deconditioning Osteoporosis (~1998) POLST (Physician Orders for Life-Sustaining Treatment) Swelling of both ankles Urinary tract infection Surgical History History of surgery on arm (~2000) History of tonsillectomy (1961) Status post cholecystectomy (1995) Family History Father No problems noted. Mother Cancer Social History household members: spouse Smoking Status: Never smoker Assessment & Plan Assessment & Plan narrative: Pubic rami fracture, multiple locations, acute, present on admission * Pain controlled with scheduled Tylenol, tramadol, oxycodone, and IV morphine as needed * PT OT evaluation in the morning * Orthopedics informed ED that this was nonoperable but that they would be available if needed scheduled Tylenol, will increase to 975 q.8 hours * Patient very likely will need placement at discharge * 2. Essential hypertension, not well controlled likely due to pain * Patient normally takes amlodipine 2.5 mg in the morning and this will be continued * She is ordered for 1 time dose of oral immediate release metoprolol 12.5 mg x 1 3. Glaucoma, chronic * Continues home doses of dorzolamide/timolol and latanoprost eye drops 4. Elevated liver function tests Improving, no abdominal pain, consider abdominal ultrasound to evaluate further VTE Prophylaxis: Wells risk score 3 Enoxaparin 40 mg subQ once daily Time Spent With Patient Critical Care time: I spent a total of [] minutes of critical care time on this patient's care today; this time is exclusive of procedural time. Quality VTE Deep Vein Thrombosis/Pulmonary Embolism Present on Admission: No
--- NOTE | 2021-12-20 16:39 | DI.US.S_ITS ---
PROCEDURE: US ABDOMEN LIMITED INDICATIONS: ELEVATED LIVER TESTS TECHNIQUE: Real-time focused scanning was performed of the abdomen, with image documentation. Suboptimal exam secondary to patient condition. COMPARISON: [facility], CT, CT ABDOMEN PELVIS W CON, 12/19/2021, 18:02. FINDINGS: The visible portion of the proximal pancreas is within normal limits. The images of the liver are degraded by rib shadows and patient breathing motion. No obvious liver mass. No intrahepatic biliary dilatation, however there is extrahepatic biliary dilatation with the common duct measuring up to 1.1 cm. The gallbladder is surgically absent. Incidental note made of right pleural effusion. IMPRESSION: 1. Extrahepatic biliary dilatation post cholecystectomy as seen on prior CT scan. 2. Right pleural effusion, consistent with prior CT scan. 3. Limited views of the liver due to patient condition. Dictated by: Heena Myers M.D. on 12/20/2021 at 17:33 Approved by: Heena Myers M.D. on 12/20/2021 at 17:35
--- NOTE | 2021-12-20 16:39 | CM.DANOTE ---
DCP/continued: Received call from Kalyn at [facility]# [phone] unfortunately, was unavailable at time of her call. PUBLIC HOUSING MANAGER re-attempted call and left vm. Apparently patient resides at [facility] with demented spouse/Svend. Daughter involved but PUBLIC HOUSING MANAGER unclear if she is DPOA. Patient with pubic fracture after fall? and or osteoporosis. Patient currently OBS status which will most likely not change. Placed call to January at [facility] requesting she review for potential admit? CM team would benefit from confirming who is DPOA for patient and also possibility of patient returning to [facility] with home health and private caregivers. P: Pending.
[2021-12-20] MEDS: ACETAMINOPHEN 325 MG TABLET 975 MG PO (21:20)
[2021-12-21 01:00] VITALS: BP 165/69; PULSE 76; RESP 16; TEMP 36.5; O2SAT 92
[2021-12-21] MEDS: TRAMADOL 50 MG TABLET PO (03:14)
[2021-12-21 05:00] VITALS: BP 172/89; PULSE 83; RESP 18; TEMP 36.4; O2SAT 94
[2021-12-21 05:49] LABS: Add Manual Diff / Slide Review NO; Basophils Absolute Auto 100 /uL (0-100); Basophils Percent Auto 0.8 % (0-2); Eosinophils Absolute Auto 600 /uL (0-450); Eosinophils Percent Auto 9.3 % (2-4); Hemoglobin 11.3 g/dL (12.0-16.0); Lymphocytes Absolute Auto 1300 /uL (1100-4500); Lymphocytes Percent Auto 19.8 % (25-40); Mean Corpuscular HGB Conc 34.1 % (30-36); Mean Corpuscular Hemoglobin 29.7 PG (26-34); Mean Corpuscular Volume 86.9 fL (80-100); Monocytes Absolute Auto 600 /uL (0-900); Monocytes Percent Auto 8.7 % (3-14); Neutrophils Absolute Auto 4100 /uL (1500-7000); Neutrophils Percent Auto 61.4 % (50-75); Platelet Count 231 X10^3/uL (150-400); Red Cell Distribution Width 15.3 % (11.6-14.8); White Blood Cell Count 6.7 X10^3/uL (4.5-11.0)
[2021-12-21 05:56] LABS: Alanine Aminotransferase 609 IU/L (<35); Albumin 3.4 g/dL (3.5-5.0); Albumin Globulin Ratio 1.2 (1.0-2.8); Alkaline Phosphatase 559 U/L (38-126); Aspartate Aminotransferase 666 IU/L (14-36); BUN Creatinine Ratio 24.1 (6-22); Bilirubin Total 2.4 mg/dL (0.2-1.3); Bilirubin Unconjugated 1.9 mg/dL (0.0-1.1); Blood Urea Nitrogen 20 mg/dL (7-17); Calcium 8.4 mg/dL (8.4-10.2); Carbon Dioxide 32 mmol/L (22-32); Chloride 106 mmol/L (98-107); Estimated Glomerular Filt Rate > 60 mL/min (>60); Globulin 2.8 g/dL (1.7-4.1); Glucose 113 mg/dL (80-110); HEMOLYSIS < 15 (0-50); Magnesium 2.2 mg/dL (1.6-2.3); Potassium 3.6 mmol/L (3.4-5.1); Sodium 139 mmol/L (137-145); Total Protein 6.2 g/dL (6.3-8.2)
[2021-12-21 08:12] VITALS: BP 176/78; PULSE 75; RESP 22; TEMP 36.8; O2SAT 94
[2021-12-21 08:20] VITALS: BP 162/84
[2021-12-21 09:16] VITALS: PULSE 79; RESP 16; O2SAT 95
--- NOTE | 2021-12-21 09:38 | OT.IP.TRT ---
Occupational Therapy Treatment Note M2 OT-IP Current Condition Start: 12/20/21 14:32 Freq: Status: Active Protocol: Document 12/20/21 13:25 [facility] (Rec: 12/20/21 14:50 [facility] [id number]) Occupational Therapy Current Condition Current Condition Evaluation Date 12/20/21 Treatment Diagnosis Public rami fx, decreased mobility Diagnosis Onset Date 12/19/21 M3 OT- IP Subjective and Pain Start: 12/20/21 14:32 Freq: Status: Active Protocol: Document 12/21/21 10:22 [facility] (Rec: 12/21/21 10:29 [facility] [id number]) OT- Subjective Occupational Therapy Visit Type Type Treatment Note Visit Start Time 09:22 Visit Stop Time 09:38 Total Visit Minutes 16 Occupational Therapy Visit Comments Patient Comments Pt agreed to get up to use the BSC. Patient/Caregiver Goals To get better. OT Pain Assessment Pain When Pain Assessed At Rest Pain Present Pain Present Denied Pain M4 OT- IP ADL's Start: 12/20/21 14:32 Freq: Status: Active Protocol: Document 12/21/21 10:22 [facility] (Rec: 12/21/21 10:29 [facility] [id number]) OT ADL-Dressing General Eval Lower Body Dressing Ability Maximum Assistance Areas Needing Assistance Underpants/Brief OT ADL-Toileting General Evaluation Toileting Ability Maximum Assistance Areas Needing Assistance Manage Clothing,Perform Perineal Hygiene Comments OT Toileting Comments Pt needing MAX AX 1 to stand to FWW while another person able to assist for hygiene and brief management needs. M5 OT- IP IADL's Start: 12/20/21 14:32 Freq: Status: Active Protocol: Document 12/20/21 13:25 [facility] (Rec: 12/20/21 14:50 [facility] [id number]) OT-Instrumental Activities of Daily Living Home Safety Awareness Home Safety Comments At this time if pt going home would need 24/7 assist for all needs. Medication Management Medication Management Caregiver Administers Money Management Money Management Caregiver Provides Assistance Meal Preparation Meal Preparation Caregiver Provides Assist Stencil Maker Stencil Maker Caregiver Provides Assist M6 OT- IP Functional Cognition Start: 12/20/21 14:32 Freq: Status: Active Protocol: Document 12/21/21 10:22 [facility] (Rec: 12/21/21 10:29 [facility] [id number]) Cognitive Factors Limiting Selfcare Function Cognitive Comments Cognitive Assessment Comments Pt very pleasant and cooperative. Items need to be placed in front of her to be aware to use. Pt not aware to use the call light for assist until in was directly in front of her to see. M7 OT- IP Mobility and Balance Start: 12/20/21 14:32 Freq: Status: Active Protocol: Document 12/21/21 10:22 [facility] (Rec: 12/21/21 10:29 [facility] [id number]) OT- Bed Mobility Assessment Supine to Sit Supine to Sit Assist Maximum Assistance,1 Person Assistance OT-Transfer Assessment Sit to and From Stand Sit to and from Stand Maximum Assistance,2 Person Assistance Transfers Transfer Ability Maximum Assistance,2 Person Assistance Technique Transfer Destination Bed,Bedside Commode,Chair Devices Transfer Assistive Devices Gait Belt,Front Wheeled Walker Comments Mobility Comments MAX AX 2 to stand with FWW and assist for balance, weight shifting and to guide the FWW. It is much more difficulty for the pt to transfer to the left due to her pain and pelvic fracture. OT- Balance Assessment Sitting Balance and Reactions Static Sitting Balance Ability Fair Standing Balance and Reactions Static Standing Balance Ability Poor Dynamic Standing Balance Ability Poor M8 OT- IP Objective Assessments Start: 12/20/21 14:32 Freq: Status: Active Protocol: Document 12/20/21 13:25 [facility] (Rec: 12/20/21 14:50 [id number] Gross Range of Motion Upper Extremity Range of Motion ROM Impairments grossly WFL OT Strength Comments Strength Comments Not formally tested, at least 3-/5 OT-Muscle Tone Assessment Muscle Tone WNL Yes M9 OT- IP Assessment and Plan Start: 12/20/21 14:32 Freq: Status: Active Protocol: Document 12/21/21 10:22 [facility] (Rec: 12/21/21 10:29 [facility] [id number]) OT Summary Assessment and Plan Potential Rehabilitation Potential Fair Analytic Complexity at Evaluation Moderate Summary OT Impairments Pain,Strength,Balance, Functional Cognition, Functional Mobility,Dressing, Toileting,Bathing,Toilet Transfers,Shower Transfers, Activity Tolerance Progress Towards Goals Slow Progress due to Pain,Slow Progress due to Medical Issues,Slow Progress due to Activity Tolerance Assessment Summary Pt needing more assist to transfer to the left today with MAX AX 2 with FWW. Pt will greatly benefit form skilled rehab prior to going home. Goals Dressing Goal Moderate Assistance Toileting Goal Moderate Assistance Bathing Goal Moderate Assistance Toilet Transfer Goal Standby Assistance Shower Transfer Goal Standby Assistance Days to Meet Goals 30 Frequency of Treatment Frequency Of Treatment Once a Day Treatment Plan OT Treatment Plan ADL Training,Functional Mobility,Patient/Family Education,Discharge Planning Other Treatment Recommendations and Next Transfer to [facility] with AMORY Ax1 Treatment Focus with FWW. Discharge Recommendations OT Discharge Recommendations SNF Rehab Transportation Needs at Discharge Wheelchair/Cabulance
[2021-12-21] MEDS: ENOXAPARIN 40 MG/0.4 ML SYRINGE SUBCUT (09:52)
[2021-12-21] MEDS: AMLODIPINE 5 MG TABLET 2.5 MG PO (09:53)
[2021-12-21] MEDS: DORZOLAMIDE/TIMOLOL OPHTH 10 ML 1 DROPS EYE-BOTH (09:56)
--- NOTE | 2021-12-21 10:34 | PT.IPTN ---
Physical Therapy Treatment Note M2 PT-IP Current Condition Start: 12/20/21 08:41 Freq: NEEDED Status: Active Protocol: Document 12/20/21 10:31 [facility] (Rec: 12/20/21 12:21 [facility] [id number]) Physical Therapy Current Condition Current Condition Evaluation Date 12/20/21 Treatment Diagnosis pubic rami fractures; LLE pain ; difficulty in walking Onset Date M3 PT-IP Subjective Start: 12/20/21 08:41 Freq: NEEDED Status: Active Protocol: Document 12/21/21 10:29 [facility] (Rec: 12/21/21 10:34 [facility] [id number]) Subjective Physical Therapy Visit Type Type Treatment Note Visit Start Time 09:58 Visit Stop Time 10:28 Total Visit Minutes 30 Number of ASSISTED LIVING ASSOCIATE Visits 0 Physical Therapy Visit Comments Patient Comments Pt agreeable to get up. Notes it hurts a lot when she does get up Therapy Pain Assessment Pain When Pain Assessed During Mobility Pain Present Pain Present Pain Reported M4 PT-IP Mobility and Gait Start: 12/20/21 08:41 Freq: NEEDED Status: Active Protocol: Document 12/21/21 10:29 [facility] (Rec: 12/21/21 10:34 [facility] [id number]) PT-Transfer Assessment Sit to and From Stand Sit to and from Stand Maximum Assistance,1 Person Assistance Equipment Transfer Assistive Device Gait Belt,Front Wheeled Walker Orthotic/Prosthetic Devices or Brace: No Comments Mobility Comments Pt seated in chair upon PT arrival. PT worked on sit to stand and standing w/pt. Max cues and mod A for scoot to edge of chair. Pt required max cues and max a to stand at walker and required max A to stand up straight and get pelvis under her. She stood w/ max A but leaned back so required a lot of cues to put more wt in toes. SHe stood about 2 min w/max A then sat in chair w/max A. Pt left w/ call light in reach & chair alarm on PT-Balance Assessment Sitting Balance and Reactions Static Sitting Balance Ability Fair Dynamic Sitting Balance Ability Fair Standing Balance and Reactions Static Standing Balance Ability Poor Dynamic Standing Balance Ability Poor Device Used FWW M5 PT-IP Objective Assessments Start: 12/20/21 08:41 Freq: NEEDED Status: Active Protocol: Document 12/20/21 10:31 [facility] (Rec: 12/20/21 12:43 [id number]) Orientation Orientation/Cognition Level of Alertness Confusional State Orientation Name,Year,Place,Situation Language Function Ability No Deficits Noted Safety Awareness Decreased Safety Awareness Gross Range of Motion Lower Extremity ROM Assessment Within Functional Limits Strength Lower Extremity Strength Assessment Bilaterally Impaired Hip R 3+/5; L 3-/5 Knee 4/5 Ankle 4/5 Sensation Assessment Sensation Gross Sensation WNL Muscle Tone Muscle Tone WNL Yes M6 PT-IP Treatment Start: 12/20/21 08:41 Freq: NEEDED Status: Active Protocol: Document 12/21/21 10:29 [facility] (Rec: 12/21/21 10:34 [facility] [id number]) Physical Therapy Treatment Exercises Exercises Ankle Pumps,Gluteal Sets,Quad Sets,Seated Knee Flexion/ Extension M7 PT-IP Assessment and Plan Start: 12/20/21 08:41 Freq: NEEDED Status: Active Protocol: Document 12/21/21 10:29 [facility] (Rec: 12/21/21 10:34 [facility] [id number]) PT Summary Assessment and Plan Potential Rehabilitation Potential Fair Summary Impairments Pain,Strength,Balance, Cognition,Bed Mobility, Transfers,Gait,Activity Tolerance Assessment Summary Pt is still very scared to fall and leans back signficiantly when trying to stand which makes it difficult for her to get all the way up . She requires Max A to get to this position and stay in standing even w/use of FWW. She has limited tolerancea ndw as only able to stand about 2 min. She will cont to require signficiant assist for all mobility so will benefit from skilled rehab before return home for her safety. Goals Bed Mobility Goal Minimal Assistance Transfer Goal Minimal Assistance,Front Wheeled Walker Gait Goal Minimal Assistance,Front Wheel Walker Gait Distance 75 Days to Meet Goals 10 Frequency of Treatment Frequency Of Treatment Once a Day Treatment Plan Physical Therapy Treatment Plan Bed Mobility Training,Transfer Training,Gait Training, Therapeutic Exercise,Balance Retraining,Discharge Planning, Hot or Cold Pack,Neuromuscular Re-ed Other Recommendations and Next Treatment standing tolerance; mobility Focus as tolerated Precautions Other Precautions falls Weight Bearing Status Weight Bearing Status Weight Bear as Tolerated Recommendations To Nursing Amount of Assist Needed 2 Person Assist Discharge Recommendations PT Discharge Recommendations SNF Rehab Transportation Needs at Discharge Wheelchair/Cabulance
--- NOTE | 2021-12-21 11:17 | P.DS_ITS ---
History of Present Illness History of Present Illness Date Patient Seen: 12/21/21 Time Patient Seen: 11:17 Chief complaint: Left leg pain, found to have pubic rami fx Narrative: Rhoda Lane is an 86-year-old female resident [facility] with the history of CHF, bilateral lower extremity edema, history of lumbar spine fractures, chronic kidney disease and osteoporosis was brought in by her daughter for worsening left leg pain.? She was seen in the emergency department earlier this week for the same issue and was discharged on gabapentin 100 mg at bedtime.? Patient appears to be little bit confused as to the timeline and does not recall having fallen but she was found to have a superior and inferior pubic ramus fracture. She continues to have left sided leg and hip pain. She does not endorse knowing what happened prior to being seen in the ED and denies loosing consciousness, denies shortness of breath, chest pain, nausea or vomiting, abdominal pain, changes in bladder or bowel patterns or control, dysurea, or numbing or tingling. She does state if she stays still her pain is controlled. Ultrasound of the left leg did not indicate a DVT, x-ray left femur ruled out femur fracture but did identify possible left pubic fractures, knee x-ray was negative, x-ray of the tibia and fibula indicated demineralization but no fracture, abdomen pelvis CT indicated a Prominent displaced fracture of the left superior pubic ramus involving the isthmus.? There is also a comminuted fracture of the left inferior pubic ramus.? A mildly displaced fracture seen involving the right pubis.Patient is afebrile but her blood pressure is elevated 184/73, heart rate 90, respiratory rate 18, oxygen saturation of 99% on 2 L, she weighs 47.6 kg with a BMI of 21.2.? She is mildly anemic with a hemoglobin and hematocrit of 11.6 and 34.6, though this appears to be her baseline, BUN is mildly elevated at 26 though she has a normal creatinine and GFR, calcium was 8.3 but albumin is within normal limits, ALT is 36 AST is 44, UA is negative for UTI, and COVID-19 PCR is negative. Discharge Providers Provider Date of admission: 12/19/21 19:26 Discharge Date: 12/21/21 Primary care physician: James Ndiaye DO Consults: 12/19/21 17:22 Consult to ANALYTICS INTERN - [employer] Stat Comment: ANALYTICS INTERN Consult needed for:: Community Health Res Need 12/19/21 20:45 Consult to Occupational Therapy Evaluate & Treat Comment: pubic rami fx Physician Instructions: Evaluate and treat Consult to Physical Therapy Evaluate & Treat Comment: pubic rami fx Physician Instructions: Evaluate and Treat 12/19/21 22:22 Consult to Dietitian, Adult Routine Comment: Reason For Exam: BMI between 19-21 Discharge provider: Susannah Fraga MD Summary Hospital Course Discharge Diagnosis: 1. Pubic ramus fracture 2. Osteoporosis 3. Hypertension 4. Glaucoma 5. Chronic kidney disease stage 3 6. Chronic congestive heart failure Hospital Course: The patient is an 86-year-old female who was admitted to the hospital with a pubic ramus fracture. She denies any pain when at rest but has pain with activity. She was seen by physical therapy and occupational therapy and deemed unsafe to return home. They recommended ongoing rehabilitation at a retirement facility. Patient was agreeable. Arrangements were made to transfer her to [facility] for ongoing rehabilitation. She is resting comfortably in a chair at this time has no pain other than when she moves. She is deemed appropriate for transfer to [facility]. Status at Discharge Cognitive/behavioral status at discharge: oriented Functional status at discharge: uses cane/walker Overall status at discharge: patient is not back to baseline Exam Vital Signs (past 8 hours): - 12/21/21 05:00 12/21/21 08:12 12/21/21 08:20 Temperature 97.5 F L 98.3 F Pulse Rate 83 75 Respiratory Rate 18 22 Blood Pressure 172/89 H 176/78 H 162/84 H Pulse Oximetry 94 94 12/21/21 09:16 Temperature Pulse Rate 79 Respiratory Rate 16 Blood Pressure Pulse Oximetry 95 Oxygen Delivery Method Room Air Oxygen Flow Rate 0 Narrative Exam Narrative: Elderly female lying in bed in no obvious distress Resp Other: Lungs: Clear to auscultation Cardio Other: Cardiac exam: Regular rate and rhythm normal S1-S2 with a 2/6 systolic ejection murmur GI Other: Abdomen: Soft and nontender Extrem Other: Extremities: No edema Objective Labs Result Diagrams: 12/21/21 05:33 12/21/21 05:33 Labs: Laboratory Results - last 24 hr 12/21/21 12/21/21 05:33 05:33 WBC 6.7 RBC 3.80 L Hgb 11.3 L Hct 33.0 L MCV 86.9 MCH 29.7 MCHC 34.1 RDW 15.3 H Plt Count 231 Neut % (Auto) 61.4 Lymph % (Auto) 19.8 L [place] % (Auto) 8.7 Eos % (Auto) 9.3 H Baso % (Auto) 0.8 Neut # (Auto) 4100 Lymph # (Auto) 1300 [place] # (Auto) 600 Eos # (Auto) 600 H Baso # (Auto) 100 Sodium 139 Potassium 3.6 Chloride 106 Carbon Dioxide 32 BUN 20 H Creatinine 0.83 Estimated GFR > 60 BUN/Creatinine Ratio 24.1 H Glucose 113 H Calcium 8.4 Magnesium 2.2 Total Bilirubin 2.4 H Conjugated Bilirubin 0.0 Unconjugated Bilirubin 1.9 H AST 666 H ALT 609 H Alkaline Phosphatase 559 H Total Protein 6.2 L Albumin 3.4 L Globulin 2.8 Albumin/Globulin Ratio 1.2 PFSH Medical History Bilateral lower extremity edema Cataracts, bilateral (~2013) CKD (chronic kidney disease) stage 3, GFR 30-59 ml/min Congestive heart failure of unknown etiology Fatigue Fractures (2000) Glaucoma (~2016) Gout (2001) Hypertension (Unknown) Leg cramps Mobility impaired Muscular deconditioning Osteoporosis (~1998) POLST (Physician Orders for Life-Sustaining Treatment) Swelling of both ankles Urinary tract infection Surgical History History of surgery on arm (~2000) History of tonsillectomy (1961) Status post cholecystectomy (1995) Family History Father No problems noted. Mother Cancer Social History household members: spouse Smoking Status: Never smoker Discharge Assessment & Plan Assessment and Plan Assessment: 1. Pubic ramus fracture 2. Osteoporosis 3. Hypertension 4. Glaucoma 5. Chronic kidney disease stage 3 6. Chronic congestive heart failure Plan of Treatment: Discharged to [facility] Discharge Plan Discharge Plan Patient Disposition: SNF Transfer to: [facility] Transportation: Cabulance Consult as needed: Dental, Hearing, Mental health, Podiatry and Vision I certify the postop hospital retirement care is medically necessary on a continuing basis for any conditions for which he/ she received care during this hospitalization.: Yes The receiving facility has agreed to accept transfer and provide medical treatment.: Yes Discharge orders & Medications Prescriptions: New amlodipine [Norvasc] 5 mg Tablet 2.5 mg PO DAILY Qty: 30 0RF enoxaparin [Lovenox] 40 mg/0.4 mL Syringe 40 mg SUBCUT DAILY Qty: 30 0RF dorzolamide-timolol [Cosopt] 22.3-6.8 mg/mL Drops 1 drops EYE-BOTH BID 30 Days 0RF acetaminophen 325 mg Tablet 975 mg PO Q8H Qty: 30 0RF Continued timolol maleate [Timoptic] 0.25 % drops 1 drp OPHTH DAILY Qty: 0 0RF amlodipine 2.5 mg tablet 2.5 mg PO DAILY Qty: 90 3RF furosemide 40 mg tablet 40 mg PO QAM Qty: 90 3RF No Action (DME) Disabled Parking Permit See Rx Instructions .Route .MEDSUPPLY Qty: 1 0RF Rx Instructions: As directed Follow up/Referrals: James Ndiaye DO [Primary Care Provider] - Discharge Data Primary Care Provider: James Ndiaye Attending Provider: Janice Raymond VTE Deep Vein Thrombosis/Pulmonary Embolism Present on Admission: No
[2021-12-21 12:00] VITALS: BP 144/73; PULSE 72; RESP 14; TEMP 37; O2SAT 95
[2021-12-21] MEDS: ACETAMINOPHEN 325 MG TABLET 975 MG PO (12:27)
--- NOTE | 2021-12-21 13:34 | PC.NURSE ---
Pt is ready for discharge to [facility]. IV and Tele have been removed. Report called to Norma ROBBINS. All questions answered and Pt will d/c at approx. 2pm when SV arrives to pick her up.
--- NOTE | 2021-12-21 14:11 | PC.NURSE ---
Pt dressed and ate lunch went to d/c to [facility]. Pt was picked up by ems driver from [facility] with w/c. Pt denied pain. Last BM 12/21.
--- NOTE | 2021-12-21 14:15 | CM.DPNOTE ---
DC Note Patient has been discharged and [facility] HR has accepted for admission today. C19 PCR is updated, PASRR completed and signed, faxed to [facility]. Patient agreeable to plan Faxed completed and signed med list with printed prescriptions to [facility]. Updated Kalyn at [facility] with plan. Transport arranged for 1400, RN and patient made aware- agreeable to plan Plan: DC to [facility] H+R today using COVID waiver, via w/c JW
== END 2021-12-21 14:15 ==
LOC: ED 19:25 → AC 19:27
PROVIDERS: Admitting Provider Nurse Practitioner Family; Emergency Provider Student in an Organized Health Care Education/Training Program; PCP Family Medicine; Visit Provider Nurse Practitioner Family
DX: S32.512A Fracture of superior rim of left pubis, initial encounter for closed fracture (principal); Y93.9 Activity, unspecified; Y92.129 Unspecified place in nursing home as the place of occurrence of the external cause; M81.0 Age-related osteoporosis without current pathological fracture; H40.9 Unspecified glaucoma; I50.9 Heart failure, unspecified; I13.0 Hypertensive heart and chronic kidney disease with heart failure and stage 1 through stage 4 chronic kidney disease, or unspecified chronic kidney disease; N18.30 Chronic kidney disease, stage 3 unspecified; Z20.822 Contact with and (suspected) exposure to COVID-19
CPT/HCPCS: 36415; 73552; 73560; 73590; 74177; 76705; 80053; 80076; 81001; 83735; 85025; 85610; 85730; 87635; 93971; 94762; 96372; 96374; 96376; 97110; 97162; 97166; 97530; 99284; 99285; C9803; G0378; J1650; J2270; Q9967

== ENCOUNTER → 2022-01-03 16:33 | Outpatient (CLI) | payer MEDICARE, SELFPAY ==
[2021-12-19 21:59] VITALS: BMI 21.2
--- NOTE | 2022-01-03 16:39 | DI.RAD.S_ITS ---
PROCEDURE: XR CHEST 2V INDICATIONS: Sternal pain TECHNIQUE: 2 views of the chest were acquired. COMPARISON: [facility], CR, XR CHEST 2V, 10/17/2021, 11:00. FINDINGS: Kyphotic patient position and slight rotation. Surgical changes and devices: Cholecystectomy clips. Lungs and pleura: Low lung volumes. There is diffuse bilateral interstitial prominence, blunting of the right lateral costophrenic sulcus, and probably small right lung base opacity.. Mediastinum: Chronic, moderate cardiomegaly and mild cephalization of central vessels. Bones and chest wall: Chronic appearing in readily displaced distal sternal fracture. Chronic, severe lower thoracic compression fractures, T7 through 12, except for T10. Mild compression fracture of L1. Incidental note made of several prominent dilated bowel loops in the upper abdomen. IMPRESSION: 1. Chronic appearing displaced distal sternal fracture. 2. Several compression fractures of the lower thoracic spine, also chronic. 3. Diffuse interstitial prominence and new small to moderate size right pleural effusion. Likely secondary to CHF given cardiomegaly. Dictated by: Heena Myers M.D. on 01/04/2022 at 8:30 Approved by: Heena Myers M.D. on 01/04/2022 at 8:36
== END ==
PROVIDERS: PCP Family Medicine; Referring Provider Physician Assistant; Visit Provider Physician Assistant
DX: S22.20XA Unspecified fracture of sternum, initial encounter for closed fracture (principal); M48.54XA Collapsed vertebra, not elsewhere classified, thoracic region, initial encounter for fracture; R07.9 Chest pain, unspecified; J90 Pleural effusion, not elsewhere classified; I51.7 Cardiomegaly
CPT/HCPCS: 71046

== ENCOUNTER 2022-03-27 22:09 | Inpatient (IN) | payer MEDICARE, SELFPAY ==
[2022-03-27 22:12] VITALS: BP 174/88; PULSE 87; PULSE 88; RESP 16; TEMP 36.7; O2SAT 94; O2SAT 97
--- NOTE | 2022-03-27 22:15 | DI.RAD.S_ITS ---
PROCEDURE: XR PELVIS 1-2V INDICATIONS: fall with right hip pain TECHNIQUE: Single AP view(s) of the pelvis acquired. COMPARISON: [facility] [place], CR, XR PELVIS WITH LATERAL HIP LEFT, 01/18/2022, 16:25. FINDINGS: Acute angulated, displaced, and foreshortened fracture of the right femoral surgical neck. Remote left superior and inferior pubic ramus fractures similar to comparison study. IMPRESSION: Acute angulated, displaced, and foreshortened fracture right femoral surgical neck. Dictated by: Jaylen Brown M.D. on 03/27/2022 at 22:49 Approved by: Jaylen Brown M.D. on 03/27/2022 at 22:49
--- NOTE | 2022-03-27 22:15 | ED.FALL ---
HPI - Fall General Chief Complaint: Fall Stated Complaint: GLF Time Seen by Provider: 03/27/22 22:12 History of Present Illness HPI Narrative: 86-year-old female former smoker with history of chronic kidney disease, osteoporosis, CHF, frequent falls presents by EMS for evaluation of a ground level fall resulting in right hip pain. She routinely walks with the use of a walker but states she took a few steps trying to reach the walker and with sufficiently weak to fall and injure her leg. She denies any head neck or back pain. She has no chest pain or shortness of breath. She denies nausea, vomiting or diarrhea. Her right hip is significantly painful with range of motion or palpation and improves with rest Related Data Home Medications Medication Instructions Recorded Confirmed dorzolamide 22.3 mg-timolol 6.8 1 drp EYE-BOTH BID 02/05/22 03/28/22 mg/mL eye drops food supplemt, lactose-reduced 1 ea PO DAILY 02/05/22 03/28/22 (Ensure oral liquid) calcium carbonate 600 mg-vitamin 1 tab PO DAILY 03/28/22 03/28/22 D3 20 mcg (800 unit) chewable tablet (Caltrate 600 plus D) vit A 300 mcg-C 200 mg-E 27 1 tab PO BID 03/28/22 03/28/22 mg-lutein 2 mg and minerals tablet (I-Yara) vitamin E (dl, acetate) 180 mg 180 mg PO BEDTIME 03/28/22 03/28/22 (400 unit) capsule Previous Rx's Medication Instructions Recorded Disabled Parking Permit #1 ea 10/17/21 amlodipine 2.5 mg tablet 2.5 mg PO DAILY #90 tabs 12/05/21 furosemide 40 mg tablet 40 mg PO QAM #90 tabs 12/05/21 tramadol 50 mg tablet 25 mg PO BID PRN pain #30 tabs 02/05/22 magnesium 250 mg tablet 250 mg PO DAILY #90 tabs 02/09/22 acetaminophen 325 mg tablet See Rx Instructions .Route 02/23/22 .COMPLEX #180 tabs Allergies Allergy/AdvReac Type Severity Reaction Status Date / Time Penicillins [PENICILLINS] Allergy Unknown Verified 02/05/22 13:17 Review of Systems Review of Systems Narrative: GENERAL: Denies chills, fatigue, malaise, fever, sweats. HEENT: Denies sinus pain, ear pain, sore throat, difficulty swallowing, dizziness. RESPIRATORY: Denies dyspnea, cough, wheezing, hemoptysis, sputum. CARDIOVASCULAR: Denies chest pain, palpitations, orthopnea, edema, GASTROINTESTINAL: Denies nausea, vomiting, abdominal pain, diarrhea, constipation, melena. : Denies dysuria, frequency, incontinence, hematuria, urinary retention. MUSCULOSKELETAL: See HPI SKIN: Denies rash, skin lesions, or other NEUROLOGIC: Denies weakness, headache, numbness, change in speech, confusion, seizures, incoordination. PSYCHIATRIC: No concerning psychosocial issues. 12 point review of systems is negative except for those stated above Patient History Medical History Bilateral lower extremity edema Body posture problem Cataracts, bilateral (~2013) Change in voice CKD (chronic kidney disease) stage 3, GFR 30-59 ml/min Congestive heart failure of unknown etiology MADRID (dyspnea on exertion) Fatigue Fractures (2000) Glaucoma (~2016) Gout (2001) Hypertension (Unknown) Leg cramps Mobility impaired Muscular deconditioning Osteoporosis (~1998) Pelvic pain POLST (Physician Orders for Life-Sustaining Treatment) Swelling of both ankles Urinary tract infection Surgical History History of surgery on arm (~2000) History of tonsillectomy (1961) Status post cholecystectomy (1995) Family History Father No problems noted. Mother Cancer Social History household members: spouse Smoking Status: Never smoker alcohol intake: current Smoking Status: Never smoker alcohol intake frequency: holidays/special occasions only Alcohol type: wine Substance Use Type: does not use Exam Narrative Exam Narrative: GENERAL: [86] year old patient appears stated age. Well-developed patient, in mild distress. Pleasantly confused with GCS 14 HEAD: Atraumatic. Normocephalic. EYES: Pupils equal round and reactive. Extraocular motions intact. No scleral icterus. No injection or drainage. ENT: Dry mucous membranes Nose without bleeding, purulent drainage. Throat without erythema, tonsillar hypertrophy or exudate. Airway patent. NECK: Trachea midline. Non tender CARDIOVASCULAR: Regular rate and rhythm without murmurs, gallops, or rubs. RESPIRATORY: Clear to auscultation. Breath sounds equal bilaterally. No wheezes, rales, or rhonchi. GASTROINTESTINAL: Abdomen soft, non-tender, nondistended. EXTREMITIES: Pain on palpation of right hip, closed, isolated and neurovascularly intact, no obvious shortening or rotation BACK: Nontender without deformity or crepitance. No flank tenderness. NEURO: AOx3. SKIN: No rash or erythema of visible areas Initial Vital Signs Initial Vital Signs: Vital Signs Temperature 98.0 F 03/27/22 22:12 Pulse Rate 88 03/27/22 22:12 Respiratory Rate 16 03/27/22 22:12 Blood Pressure 174/88 H 03/27/22 22:12 Pulse Oximetry 97 03/27/22 22:12 Oxygen Delivery Method 03/27/22 22:12 Course Orders Ordered: ED Orders 03/27/22 22:15 XR pelvis 1-2V Stat 03/27/22 22:29 CT chest abd pel w con Stat 03/27/22 22:34 Complete Blood Count AUTO DIFF Stat Comprehensive Metabolic Panel Stat Magnesium Stat Troponin & CK Cardiac Panel Stat Type and Screen Stat 03/27/22 22:56 COVID19 -Nasal RAPID/Pre-Proc Stat Acetaminophen (Acetaminophen 325 Mg Tablet) 650 mg PO Q6HR PRN PRN Reason: Fever/Mild Pain (1-3) Heparin Sodium (Porcine) (Heparin 5,000 Unit/Ml Vial) 5,000 unit SUBCUT BID BINU Morphine Sulfate (Morphine 2 Mg/Ml Inj) 2 mg IV Q4HR PRN PRN Reason: Pain, Moderate (4-6) Last Admin: 03/28/22 01:42 Dose: 2 mg Documented By: AMU Ondansetron HCl (Ondansetron 4 Mg/2 Ml Inj) 4 mg IV Q8HR PRN PRN Reason: Nausea And Vomiting Discontinued Medications Sodium Chloride (Normal Saline 0.9%) 1,000 mls @ 125 mls/hr IV CONT BINU Last Infusion: 03/28/22 02:00 Dose: 125 mls/hr Documented By: Admin: 03/27/22 22:45 Dose: 125 mls/hr Documented By: BRIANA Consultations Consultation #1: Discussed with on-call orthopedist, request NPO after midnight ([place]) Consultation #2: hospitalist happy to accept Vital Signs Vital signs: Vital Signs - 8 hr 03/27/22 22:12 03/27/22 22:12 03/27/22 22:30 Temperature 98.0 F Pulse Rate 88 87 Respiratory Rate 16 Blood Pressure 174/88 H 166/95 H Pulse Oximetry 97 94 Oxygen Delivery Method Room Air Oxygen Flow Rate 03/27/22 22:30 03/27/22 23:00 03/27/22 23:00 Temperature Pulse Rate 86 83 Respiratory Rate Blood Pressure 152/77 H Pulse Oximetry 93 91 Oxygen Delivery Method Oxygen Flow Rate 03/27/22 23:40 03/27/22 23:40 03/28/22 00:00 Temperature Pulse Rate 91 H Respiratory Rate Blood Pressure 147/78 H 146/75 H Pulse Oximetry 88 L Oxygen Delivery Method Oxygen Flow Rate 03/28/22 00:00 03/28/22 00:30 03/28/22 00:30 Temperature Pulse Rate 92 H 90 Respiratory Rate Blood Pressure 155/80 H Pulse Oximetry 87 L 96 Oxygen Delivery Method Nasal Cannula Oxygen Flow Rate 2 - Fall Lab Data Result diagrams: 03/27/22 22:34 03/27/22 22:34 Labs: Lab Results 03/27/22 03/27/22 03/27/22 Range/Units 22:34 22:34 22:34 WBC 9.2 (4.5-11.0) X10^3/uL RBC 3.67 L (4.0-5.2) X10^6/uL Hgb 11.0 L (12.0-16.0) g/dL Hct 32.3 L (36-46) % MCV 88.2 (80-100) fL MCH 30.1 (26-34) PG MCHC 34.1 (30-36) % RDW 15.4 H (11.6-14.8) % Plt Count 178 (150-400) X10^3/uL Neut % (Auto) 76.0 H (50-75) % Lymph % (Auto) 14.2 L (25-40) % [place] % (Auto) 8.0 (3-14) % Eos % (Auto) 1.2 L (2-4) % Baso % (Auto) 0.6 (0-2) % Neut # (Auto) 7000 (6917-4349) /uL Lymph # (Auto) 1300 (8159-1456) /uL [place] # (Auto) 700 (0-900) /uL Eos # (Auto) 100 (0-450) /uL Baso # (Auto) 100 (0-100) /uL Sodium 138 (137-145) mmol/L Potassium 3.8 (3.4-5.1) mmol/L Chloride 101 (98-107) mmol/L Carbon Dioxide 26 (22-32) mmol/L BUN 37 H (7-17) mg/dL Creatinine 1.23 H (0.52-1.04) mg/dL Estimated GFR 43 L (>60) mL/min BUN/Creatinine Ratio 30.1 H (6-22) Glucose 101 (80-110) mg/dL Calcium 9.0 (8.4-10.2) mg/dL Magnesium (1.6-2.3) mg/dL Total Bilirubin 2.2 H (0.2-1.3) mg/dL AST 39 H (14-36) IU/L ALT 27 (<35) IU/L Alkaline Phosphatase 80 (38-126) U/L Total Creatine Kinase (30-135) U/L CK-MB (CK-2) (<2.37) ng/mL CK-MB (CK-2) Rel Index (1.5-5.0) % Troponin I (0.01-0.034) ng/mL Total Protein 7.0 (6.3-8.2) g/dL Albumin 4.3 (3.5-5.0) g/dL Globulin 2.7 (1.7-4.1) g/dL Albumin/Globulin Ratio 1.6 (1.0-2.8) SARS-CoV-2 (PCR) (Negative) Blood Type A Positive Antibody Screen Negative 03/27/22 03/27/22 Range/Units 22:34 22:56 WBC (4.5-11.0) X10^3/uL RBC (4.0-5.2) X10^6/uL Hgb (12.0-16.0) g/dL Hct (36-46) % MCV (80-100) fL MCH (26-34) PG MCHC (30-36) % RDW (11.6-14.8) % Plt Count (150-400) X10^3/uL Neut % (Auto) (50-75) % Lymph % (Auto) (25-40) % [place] % (Auto) (3-14) % Eos % (Auto) (2-4) % Baso % (Auto) (0-2) % Neut # (Auto) (7283-3646) /uL Lymph # (Auto) (9922-3332) /uL Cabell # (Auto) (0-900) /uL Eos # (Auto) (0-450) /uL Baso # (Auto) (0-100) /uL Sodium (137-145) mmol/L Potassium (3.4-5.1) mmol/L Chloride (98-107) mmol/L Carbon Dioxide (22-32) mmol/L BUN (7-17) mg/dL Creatinine (0.52-1.04) mg/dL Estimated GFR (>60) mL/min BUN/Creatinine Ratio (6-22) Glucose (80-110) mg/dL Calcium (8.4-10.2) mg/dL Magnesium 2.5 H (1.6-2.3) mg/dL Total Bilirubin (0.2-1.3) mg/dL AST (14-36) IU/L ALT (<35) IU/L Alkaline Phosphatase (38-126) U/L Total Creatine Kinase 104 (30-135) U/L CK-MB (CK-2) 2.26 (<2.37) ng/mL CK-MB (CK-2) Rel Index 2.2 (1.5-5.0) % Troponin I < 0.012 (0.01-0.034) ng/mL Total Protein (6.3-8.2) g/dL Albumin (3.5-5.0) g/dL Globulin (1.7-4.1) g/dL Albumin/Globulin Ratio (1.0-2.8) SARS-CoV-2 (PCR) Negative (Negative) Blood Type Antibody Screen Imaging Data Hip Xray: Radiologist's Impression: Rhoda Lane??86??F??1935 ? Allergy/Adv: Penicillins Close Chest/Abdomen/Pelvis CT (Signed) Jaylen Brown - 03/27/22 Pelvis X-Ray (Signed) Jaylen Brown - 03/27/22 Chest X-Ray (Signed) Louis,Heena - 01/03/22 Abdomen Ultrasound (Signed) Louis,Heena - 12/20/21 Telemetry Strips 12/19/21 Abdomen/Pelvis CT (Signed) Camilo Simental - 12/19/21 Tibia/Fibula X-Ray (Signed) Louis,Heena - 12/19/21 Knee X-Ray (Signed) Louis,Heena - 12/19/21 Femur X-Ray (Signed) Louis,Heena - 12/19/21 Vascular Ultrasound (Signed) Jaylen Brown - 12/19/[address] (Signed) Cristopher Salas - 12/16/21 Hip X-Ray (Signed) Aj Richard - 11/08/21 Chest X-Ray (Signed) Rich Yanes - 10/17/21 Vascular Ultrasound (Signed) Jaylen Brown - 06/19/[address] (Signed) Nicole Howard - 06/19/21 Lumbar Spine X-Ray (Signed) Nicole Howard - 06/19/21 Foot X-Ray (Signed) Nicole Howard - 10/01/18 Ankle X-Ray (Signed) Nicole Howard - 10/01/18 EKG Rpt. 08/05/18 Launch?[place] [address] XRay Report Signed Patient: Rhoda Lane MR#: [id number] : 1935 Acct:[id number] Age/Sex: 86 / F Date of Service: 03/27/22 Loc: ED Accession Number: [id number] ?? Procedure: XR pelvis 1-2V Ordering Provider: Juaquin Potts D.O. PROCEDURE:? XR PELVIS 1-2V ? INDICATIONS:? fall with right hip pain ? TECHNIQUE:? Single AP view(s) of the pelvis acquired.? ? COMPARISON:? [facility], , XR PELVIS WITH LATERAL HIP LEFT, 01/18/2022, 16:25. ? FINDINGS:? ? Acute angulated, displaced, and foreshortened fracture of the right femoral surgical neck.? Remote left superior and inferior pubic ramus fractures similar to comparison study. ? IMPRESSION:? Acute angulated, displaced, and foreshortened fracture right femoral surgical neck. ? ? Dictated by: Jaylen Brown M.D. on 03/27/2022 at 22:49 ? ? Approved by: Jaylen Brown M.D. on 03/27/2022 at 22:49 ? CT scan - chest: Radiologist's Impression: Rhoda Lane??86??F??1935 ? Allergy/Adv: Penicillins Close Chest/Abdomen/Pelvis CT (Signed) Jaylen Brown - 03/27/22 Pelvis X-Ray (Signed) Jaylen Brown - 03/27/22 Chest X-Ray (Signed) Louis,Heena - 01/03/22 Abdomen Ultrasound (Signed) Louis,Heena - 12/20/21 Telemetry Strips 12/19/21 Abdomen/Pelvis CT (Signed) Camilo Simental - 12/19/21 Tibia/Fibula X-Ray (Signed) Louis,Heena - 12/19/21 Knee X-Ray (Signed) Louis,Heena - 12/19/21 Femur X-Ray (Signed) Louis,Heena - 12/19/21 Vascular Ultrasound (Signed) Jaylen Brown - 12/19/[address] (Signed) Cristopher Salas - 12/16/21 Hip X-Ray (Signed) Aj Richard - 11/08/21 Chest X-Ray (Signed) Rich Yanes - 10/17/21 Vascular Ultrasound (Signed) Jaylen Brown - 06/19/[address] (Signed) Nicole Howard - 06/19/21 Lumbar Spine X-Ray (Signed) Nicole Howard - 06/19/21 Foot X-Ray (Signed) Nicole Howard - 10/01/18 Ankle X-Ray (Signed) Nicole Howard - 10/01/18 EKG Rpt. 08/05/18 Launch?[address] [address] [address] Scan Report Signed Patient: Rhoda Lane MR#: [id number] : 1935 Acct:[id number] Age/Sex: 86 / F Date of Service: 03/27/22 Loc: ED Accession Number: [id number] ?? Procedure: CT chest abd pel w con Ordering Provider: Juaquin Potts D.O. PROCEDURE:? CT CHEST ABD PEL W CON ? INDICATIONS:? fall, trauma, pelvic fracture, hip fracture ? TECHNIQUE:? After the administration of intravenous contrast, 5 mm thick sections acquired from the lung apices to the symphysis.? 2.5 mm thick coronal and sagittal reformats were acquired. ?Additional 7 mm thick coronal maximum intensity projection (MIP) reformats acquired through the lungs.? Optional 10-minute delayed imaging may be performed from the kidneys to the bladder.? For radiation dose reduction, the following was used:? automated exposure control, adjustment of mA and/or kV according to patient size.? ? COMPARISON:? [facility], CT, CT PEL WO CON, 06/19/2021, 5:09.? [facility], CR, XR CHEST 2V, 01/03/2022, 16:42.? [facility], CT, CT ABDOMEN PELVIS W CON, 12/19/2021, 18:02.? [facility], CR, XR PELVIS 1-2V, 03/27/2022, 22:19. ? FINDINGS:? Image quality:? Excellent.? ? CHEST:? Remote fracture of the inferior sternal body which healed with displacement and angulation.? This is unchanged from 12/19/2021 exam.? New from that examination, there is a subacute appearing fracture of the inferior sternal manubrium , not present on the CT of the abdomen pelvis obtained 12/19/2021.? There are numerous vertebral plana deformities and age-indeterminate thoracic compression fractures, which cannot be precisely dated given the lack of comparison prior chest cross-sectional imaging.? Most of these appear to be subacute or remote, although an acute component to any of the compression deformities cannot be strictly excluded.? There is diffuse osteopenia and exaggerated thoracic kyphosis.? No obvious rib fracture.? Scapulae and clavicles are intact.? No acute airspace opacity.? No significant pleural abnormality.? Borderline cardiomegaly.? Four vessel coronary and aortic atherosclerosis.? Are normal caliber main pulmonary trunk and thoracic aorta. ? ? ABDOMEN/PELVIS:? Normal CT appearance of the liver, spleen, adrenal glands, and kidneys.? Atrophic pancreas.? Intrahepatic and extrahepatic biliary ductal dilatation likely representing post cholecystectomy reservoir phenomenon.? No abnormally dilated or thickened loop of bowel.? No pericolonic or mesenteric inflammatory changes.? No free air or free fluid.? Nonaneurysmal abdominal aorta with diffuse atherosclerotic changes.? Urinary bladder normal.? Suspected bilateral sacral insufficiency fractures which appear to be acute on chronic.? There is new sclerosis in the lateral aspects of the sacral ala adjacent to the sacroiliac joints which was not present on 12/19/2021 exam.? Ill-defined lucencies are seen traversing the sacral ala in these locations.? Small volume free pelvic fluid is presumably related.? Displaced and angulated right femoral surgical neck fracture. ? ? IMPRESSION:? ? Highly limited exam with regard to the bones as there is severe demineralization likely reflecting osteoporosis, which limits the sensitivity of CT. ? Acute displaced and angulated right femoral neck surgical fracture. ? Probable bilateral sacral ala acute on chronic fractures. ? Age-indeterminate displaced fracture of the inferior sternal manubrium, new from 12/19/2021 exam. ? Remote fracture of the inferior sternal body. ? Numerous thoracic compression deformities which cannot be the precisely dated as there is no relevant comparison chest cross-sectional imaging.? These appear primarily subacute and remote, although an acute component cannot be strictly excluded.? Correlate for point tenderness.? MRI could be considered if clinically warranted (if management would be affected). ? Remote left inferior pubic ramus fracture which is healed in nonunion with considerable displacement ? Dictated by: Jaylen Brown M.D. on 03/27/2022 at 23:58 ? ? Approved by: Jaylen Brown M.D. on 03/28/2022 at 0:11 ? Discharge Plan Departure Patient Disposition: Admitted As Inpatient Clinical Impression: Closed fracture of right hip Admit Date/Time: 03/28/22 00:49 Admit Provider: David Agustin
--- NOTE | 2022-03-27 22:29 | DI.CT.S_ITS ---
PROCEDURE: CT CHEST ABD PEL W CON INDICATIONS: fall, trauma, pelvic fracture, hip fracture TECHNIQUE: After the administration of intravenous contrast, 5 mm thick sections acquired from the lung apices to the symphysis. 2.5 mm thick coronal and sagittal reformats were acquired. Additional 7 mm thick coronal maximum intensity projection (MIP) reformats acquired through the lungs. Optional 10-minute delayed imaging may be performed from the kidneys to the bladder. For radiation dose reduction, the following was used: automated exposure control, adjustment of mA and/or kV according to patient size. COMPARISON: [facility], CT, CT PEL WO CON, 06/19/2021, 5:09. [facility], CR, XR CHEST 2V, 01/03/2022, 16:42. [facility], CT, CT ABDOMEN PELVIS W CON, 12/19/2021, 18:02. [facility], CR, XR PELVIS 1-2V, 03/27/2022, 22:19. FINDINGS: Image quality: Excellent. CHEST: Remote fracture of the inferior sternal body which healed with displacement and angulation. This is unchanged from 12/19/2021 exam. New from that examination, there is a subacute appearing fracture of the inferior sternal manubrium , not present on the CT of the abdomen pelvis obtained 12/19/2021. There are numerous vertebral plana deformities and age-indeterminate thoracic compression fractures, which cannot be precisely dated given the lack of comparison prior chest cross-sectional imaging. Most of these appear to be subacute or remote, although an acute component to any of the compression deformities cannot be strictly excluded. There is diffuse osteopenia and exaggerated thoracic kyphosis. No obvious rib fracture. Scapulae and clavicles are intact. No acute airspace opacity. No significant pleural abnormality. Borderline cardiomegaly. Four vessel coronary and aortic atherosclerosis. Are normal caliber main pulmonary trunk and thoracic aorta. ABDOMEN/PELVIS: Normal CT appearance of the liver, spleen, adrenal glands, and kidneys. Atrophic pancreas. Intrahepatic and extrahepatic biliary ductal dilatation likely representing post cholecystectomy reservoir phenomenon. No abnormally dilated or thickened loop of bowel. No pericolonic or mesenteric inflammatory changes. No free air or free fluid. Nonaneurysmal abdominal aorta with diffuse atherosclerotic changes. Urinary bladder normal. Suspected bilateral sacral insufficiency fractures which appear to be acute on chronic. There is new sclerosis in the lateral aspects of the sacral ala adjacent to the sacroiliac joints which was not present on 12/19/2021 exam. Ill-defined lucencies are seen traversing the sacral ala in these locations. Small volume free pelvic fluid is presumably related. Displaced and angulated right femoral surgical neck fracture. IMPRESSION: Highly limited exam with regard to the bones as there is severe demineralization likely reflecting osteoporosis, which limits the sensitivity of CT. Acute displaced and angulated right femoral neck surgical fracture. Probable bilateral sacral ala acute on chronic fractures. Age-indeterminate displaced fracture of the inferior sternal manubrium, new from 12/19/2021 exam. Remote fracture of the inferior sternal body. Numerous thoracic compression deformities which cannot be the precisely dated as there is no relevant comparison chest cross-sectional imaging. These appear primarily subacute and remote, although an acute component cannot be strictly excluded. Correlate for point tenderness. MRI could be considered if clinically warranted (if management would be affected). Remote left inferior pubic ramus fracture which is healed in nonunion with considerable displacement Dictated by: Jaylen Brown M.D. on 03/27/2022 at 23:58 Approved by: Jaylen Brown M.D. on 03/28/2022 at 0:11
[2022-03-27 22:30] VITALS: BP 166/95; PULSE 86; O2SAT 93
[2022-03-27] MEDS: SODIUM CHLORIDE 0.9% 1,000 ML 125 ML IV (22:45)
[2022-03-27 23:00] VITALS: BP 152/77; PULSE 83; O2SAT 91
[2022-03-27 23:07] LABS: Add Manual Diff / Slide Review NO; Basophils Absolute Auto 100 /uL (0-100); Basophils Percent Auto 0.6 % (0-2); Eosinophils Absolute Auto 100 /uL (0-450); Eosinophils Percent Auto 1.2 % (2-4); Hematocrit 32.3 % (36-46); Lymphocytes Absolute Auto 1300 /uL (1100-4500); Lymphocytes Percent Auto 14.2 % (25-40); Mean Corpuscular HGB Conc 34.1 % (30-36); Mean Corpuscular Hemoglobin 30.1 PG (26-34); Mean Corpuscular Volume 88.2 fL (80-100); Monocytes Absolute Auto 700 /uL (0-900); Neutrophils Absolute Auto 7000 /uL (1500-7000); Platelet Count 178 X10^3/uL (150-400); Red Blood Cell Count 3.67 X10^6/uL (4.0-5.2); Red Cell Distribution Width 15.4 % (11.6-14.8); White Blood Cell Count 9.2 X10^3/uL (4.5-11.0)
[2022-03-27 23:16] LABS: Creatine Kinase 104 U/L (30-135); Magnesium 2.5 mg/dL (1.6-2.3)
[2022-03-27 23:17] LABS: Alanine Aminotransferase 27 IU/L (<35); Albumin 4.3 g/dL (3.5-5.0); Albumin Globulin Ratio 1.6 (1.0-2.8); Alkaline Phosphatase 80 U/L (38-126); Aspartate Aminotransferase 39 IU/L (14-36); BUN Creatinine Ratio 30.1 (6-22); Bilirubin Total 2.2 mg/dL (0.2-1.3); Blood Urea Nitrogen 37 mg/dL (7-17); Carbon Dioxide 26 mmol/L (22-32); Chloride 101 mmol/L (98-107); Estimated Glomerular Filt Rate 43 mL/min (>60); Globulin 2.7 g/dL (1.7-4.1); Glucose 101 mg/dL (80-110); HEMOLYSIS 46 (0-50); Potassium 3.8 mmol/L (3.4-5.1); Sodium 138 mmol/L (137-145)
[2022-03-27 23:19] LABS: COVID19 -Nasal RAPID Negative (Negative)
[2022-03-27 23:29] LABS: Troponin I < 0.012 ng/mL (0.01-0.034)
[2022-03-27 23:31] LABS: CKMB % Relative Index 2.2 % (1.5-5.0); Creatine Kinase MB 2.26 ng/mL (<2.37)
[2022-03-27 23:40] VITALS: BP 147/78; PULSE 91; O2SAT 88
[2022-03-28] VITALS (13 sets, daily range): BP systolic 133–168; BP diastolic 64–91; PULSE 80–94; RESP 15–22; TEMP 36–36.6; O2SAT 87–97; BMI 20.9
--- NOTE | 2022-03-28 01:14 | PM.HP.1 ---
History of Present Illness History of Present Illness Time Patient Seen: 01:00 Date of Onset of Symptoms: 03/28/22 Chief complaint: GLF Narrative: Ms. Lane is an 86W with PMH CHF, osteoporosis, previous falls with chronic fractures including displaced pelvic fracture who presents after a fall. She states she was walking across the floor and says it was slick which caused her to lose her footing and fall on her right side. She said she had right hip pain and could not walk. No head strike or loss of consciousness. In the ED workup was done, vitals notable for elevated blood pressure. Labs notable for WBC 9.2, hgb 11, plts 178. Creatinine 1.23. Bili 2.2. Trop negative. COVID negative. Pelvic xray shows acute right femoral neck fracture. CT thorax shows additionally likely bilateral sacral ala fracture, old left inferior pubic ramus fracture with healed nonunion. Numerous thoracic compression deformities. Old sternal body fracture. And also age indeterminate sternal manubrium fracture. She was ordered for pain control and admitted for further treatment. Patient History Medical History Bilateral lower extremity edema Body posture problem Cataracts, bilateral (~2013) Change in voice CKD (chronic kidney disease) stage 3, GFR 30-59 ml/min Congestive heart failure of unknown etiology MADRID (dyspnea on exertion) Fatigue Fractures (2000) Glaucoma (~2016) Gout (2001) Hypertension (Unknown) Leg cramps Mobility impaired Muscular deconditioning Osteoporosis (~1998) Pelvic pain POLST (Physician Orders for Life-Sustaining Treatment) Swelling of both ankles Urinary tract infection Surgical History History of surgery on arm (~2000) History of tonsillectomy (1961) Status post cholecystectomy (1995) Family & Social History Family History Father No problems noted. Mother Cancer Social History: household members spouse Safety & Behavioral: Feels Safe in Current Yes Environment Been Physically Hurt or No Threatened By a Person Tobacco & Substance use: Smoking Status Never smoker alcohol intake frequency holiday/special occasion Substance Use Type does not use Meds Home Medications and Allergies Home Medications Medication Instructions Recorded Confirmed Type Disabled Parking Permit #1 ea 10/17/21 02/05/22 Rx amlodipine 2.5 mg tablet 2.5 mg PO DAILY #90 tabs 12/05/21 02/05/22 Rx furosemide 40 mg tablet 40 mg PO QAM #90 tabs 12/05/21 02/05/22 Rx dorzolamide 22.3 mg-timolol 6.8 1 drp EYE-BOTH BID 02/05/22 02/05/22 History mg/mL eye drops food supplemt, lactose-reduced 1 ea PO DAILY 02/05/22 02/05/22 History (Ensure oral liquid) multivitamin 1 tab PO BID 02/05/22 02/05/22 History tramadol 50 mg tablet 25 mg PO BID PRN pain #30 tabs 02/05/22 02/05/22 Rx calcium carbonate 600 mg-vitamin 1 cap PO BID #90 caps 02/09/22 Rx D3 10 mcg (400 unit) capsule magnesium 250 mg tablet 250 mg PO DAILY #90 tabs 02/09/22 Rx acetaminophen 325 mg tablet See Rx Instructions .Route 02/23/22 Rx .COMPLEX #180 tabs vitamin E (dl, acetate) 180 mg 180 mg PO DAILY #90 caps 03/26/22 Rx (400 unit) capsule Allergies Allergy/AdvReac Type Severity Reaction Status Date / Time Penicillins [PENICILLINS] Allergy Unknown Verified 02/05/22 13:17 Review of Systems Review of Systems Narrative: 14 systems reviewed and negative aside from what is noted in HPI Exam Vital Signs (past 8 hours): - 03/27/22 22:12 03/27/22 22:12 03/27/22 22:30 Temperature 98.0 F Pulse Rate 88 87 Respiratory Rate 16 Blood Pressure 174/88 H 166/95 H Pulse Oximetry 97 94 Oxygen Delivery Method Room Air Oxygen Flow Rate 03/27/22 22:30 03/27/22 23:00 03/27/22 23:00 Temperature Pulse Rate 86 83 Respiratory Rate Blood Pressure 152/77 H Pulse Oximetry 93 91 Oxygen Delivery Method Oxygen Flow Rate 03/27/22 23:40 03/27/22 23:40 03/28/22 00:00 Temperature Pulse Rate 91 H Respiratory Rate Blood Pressure 147/78 H 146/75 H Pulse Oximetry 88 L Oxygen Delivery Method Oxygen Flow Rate 03/28/22 00:00 03/28/22 00:30 03/28/22 00:30 Temperature Pulse Rate 92 H 90 Respiratory Rate Blood Pressure 155/80 H Pulse Oximetry 87 L 96 Oxygen Delivery Method Nasal Cannula Oxygen Flow Rate 2 Oxygen Delivery Method Nasal Cannula Oxygen Flow Rate 2 Narrative Exam Narrative: GEN: no acute distress HEENT: moist mucous membranes, PERRL NECK: trachea midline, no JVD CV: regular rate and rhythm, no murmurs PULM: clear bilaterally, no wheezes, rhonchi, rales ABD: soft, nontender, nondistended, no organomegaly EXT: warm and well perfused, right hip bruising, right leg shortened NEURO: moving all extremities, no focal deficits noted Objective Labs Result Diagrams: 03/27/22 22:34 03/27/22 22:34 Labs: Laboratory Results - last 24 hr 03/27/22 03/27/22 03/27/22 22:34 22:34 22:34 WBC 9.2 RBC 3.67 L Hgb 11.0 L Hct 32.3 L MCV 88.2 MCH 30.1 MCHC 34.1 RDW 15.4 H Plt Count 178 Neut % (Auto) 76.0 H Lymph % (Auto) 14.2 L [place] % (Auto) 8.0 Eos % (Auto) 1.2 L Baso % (Auto) 0.6 Neut # (Auto) 7000 Lymph # (Auto) 1300 [place] # (Auto) 700 Eos # (Auto) 100 Baso # (Auto) 100 Sodium 138 Potassium 3.8 Chloride 101 Carbon Dioxide 26 BUN 37 H Creatinine 1.23 H Estimated GFR 43 L BUN/Creatinine Ratio 30.1 H Glucose 101 Calcium 9.0 Magnesium Total Bilirubin 2.2 H AST 39 H ALT 27 Alkaline Phosphatase 80 Total Creatine Kinase CK-MB (CK-2) CK-MB (CK-2) Rel Index Troponin I Total Protein 7.0 Albumin 4.3 Globulin 2.7 Albumin/Globulin Ratio 1.6 SARS-CoV-2 (PCR) Blood Type A Positive Antibody Screen Negative 03/27/22 03/27/22 22:34 22:56 WBC RBC Hgb Hct MCV MCH MCHC RDW Plt Count Neut % (Auto) Lymph % (Auto) [place] % (Auto) Eos % (Auto) Baso % (Auto) Neut # (Auto) Lymph # (Auto) [place] # (Auto) Eos # (Auto) Baso # (Auto) Sodium Potassium Chloride Carbon Dioxide BUN Creatinine Estimated GFR BUN/Creatinine Ratio Glucose Calcium Magnesium 2.5 H Total Bilirubin AST ALT Alkaline Phosphatase Total Creatine Kinase 104 CK-MB (CK-2) 2.26 CK-MB (CK-2) Rel Index 2.2 Troponin I < 0.012 Total Protein Albumin Globulin Albumin/Globulin Ratio SARS-CoV-2 (PCR) Negative Blood Type Antibody Screen Assessment & Plan Assessment & Plan narrative: Ms. Lane is an 86W with PMH osteoporosis who presented with a fall found to have right hip fracture. 1. Acute right hip fracture -secondary to mechanical fall -nonweightbearing currently -pain control with IV morphine -NPO for possible surgery -ortho consulted to consider operative repair 2. 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 Hypertension -hold amlodipine for now 4. ALEX on CKD -initial creatinine 1.23, baseline is 0.83 -possibily secondary to diuresis -hold lasix for now -got IV fluid in ED 5. CHF, chronic, EF unknown -careful with IV fluids -stop maintenance normal saline CODE: DNR Proxy: Grant Lane, son I have utilized all available resources to reconcile the patient's home medications Time Spent With Patient Critical Care time: I spent a total of [] minutes of critical care time on this patient's care today; this time is exclusive of procedural time. Quality MIPS - Admit I confirm the patient?s Advance Care Plan is present, Code status is documented, Surrogate decision maker is in patient?s record [If Yes, STOP here]: Yes
[2022-03-28] MEDS: MORPHINE 2 MG/ML INJ IV (01:42)
--- NOTE | 2022-03-28 02:44 | PC.ADMIT ---
Addendum entered by Daniella Hemphill R.N. 03/28/22 03:31: correction to previous note: patient is on oxygen at 2L/min per PA Original Note: [email or web address] Admission Note: The patient,Rhoda Lane,86 y/o, was given written information regarding hospital policies, unit procedures and contact persons. Patient's smoking status: Never smoker. Vital Signs - 8 hr 03/27/22 22:12 03/27/22 22:12 03/27/22 22:30 Temperature 98.0 F Pulse Rate 88 87 Respiratory Rate 16 Blood Pressure 174/88 H 166/95 H Pulse Oximetry 97 94 Oxygen Delivery Method Room Air Oxygen Flow Rate 03/27/22 22:30 03/27/22 23:00 03/27/22 23:00 Temperature Pulse Rate 86 83 Respiratory Rate Blood Pressure 152/77 H Pulse Oximetry 93 91 Oxygen Delivery Method Oxygen Flow Rate 03/27/22 23:40 03/27/22 23:40 03/28/22 00:00 Temperature Pulse Rate 91 H Respiratory Rate Blood Pressure 147/78 H 146/75 H Pulse Oximetry 88 L Oxygen Delivery Method Oxygen Flow Rate 03/28/22 00:00 03/28/22 00:30 03/28/22 00:30 Temperature Pulse Rate 92 H 90 Respiratory Rate Blood Pressure 155/80 H Pulse Oximetry 87 L 96 Oxygen Delivery Method Nasal Cannula Oxygen Flow Rate 2 03/28/22 01:00 03/28/22 01:00 03/28/22 01:30 Temperature Pulse Rate 94 H Respiratory Rate Blood Pressure 168/91 H 162/89 H Pulse Oximetry 95 Oxygen Delivery Method Oxygen Flow Rate 03/28/22 01:30 03/28/22 02:16 03/28/22 02:17 Temperature 97.5 F L Pulse Rate 91 H 93 H Respiratory Rate 20 Blood Pressure 141/72 H Pulse Oximetry 91 95 95 Oxygen Delivery Method Room Air Oxygen Flow Rate 0 0 03/28/22 02:40 Temperature Pulse Rate Respiratory Rate Blood Pressure Pulse Oximetry Oxygen Delivery Method Room Air Oxygen Flow Rate Patient admitted to room 221 from ER per stretcher and transferred into bed using slider board. Patient is alert and oriented; very soft spoken. Breath sounds CTA with RA sat of 95%. HRR. Denied nausea. BT present and abdomen is soft but round. Denies dysuria, frequency or urgency with urination and states she is continent of [place]; QUALITY MEASUREMENT SPECIALIST reported patient voided on bedpan while in ER. Due to hip fx will need to be repositioned q2h. Bilateral calf SCD's applied. Noted to have very red, rashy skin under breasts, left > right. Denied pain at present time (had Morphine in ER prior to admission. Fall risk score is high and bed alarm is activated. Patient oriented to bed controls and call light.
[2022-03-28 05:43] LABS: Add Manual Diff / Slide Review NO; Basophils Absolute Auto 0 /uL (0-100); Basophils Percent Auto 0.2 % (0-2); Eosinophils Absolute Auto 0 /uL (0-450); Eosinophils Percent Auto 0.1 % (2-4); Hematocrit 31.6 % (36-46); Hemoglobin 10.9 g/dL (12.0-16.0); Lymphocytes Absolute Auto 500 /uL (1100-4500); Lymphocytes Percent Auto 6.2 % (25-40); Mean Corpuscular HGB Conc 34.4 % (30-36); Mean Corpuscular Hemoglobin 30.1 PG (26-34); Mean Corpuscular Volume 87.4 fL (80-100); Monocytes Absolute Auto 600 /uL (0-900); Monocytes Percent Auto 7.2 % (3-14); Neutrophils Absolute Auto 7600 /uL (1500-7000); Neutrophils Percent Auto 86.3 % (50-75); Platelet Count 136 X10^3/uL (150-400); Red Blood Cell Count 3.62 X10^6/uL (4.0-5.2); Red Cell Distribution Width 14.9 % (11.6-14.8); White Blood Cell Count 8.8 X10^3/uL (4.5-11.0)
[2022-03-28 05:46] LABS: BUN Creatinine Ratio 26.8 (6-22); Blood Urea Nitrogen 26 mg/dL (7-17); Calcium 8.5 mg/dL (8.4-10.2); Carbon Dioxide 29 mmol/L (22-32); Chloride 103 mmol/L (98-107); Estimated Glomerular Filt Rate 57 mL/min (>60); Glucose 107 mg/dL (80-110); HEMOLYSIS < 15 (0-50); Potassium 3.1 mmol/L (3.4-5.1); Sodium 139 mmol/L (137-145)
--- NOTE | 2022-03-28 07:11 | P.CONS_ITS ---
History of Present Illness Consult details Date Patient Seen: 03/28/22 Time Patient Seen: 07:12 Chief complaint: GLF Reason for consult: Right femoral neck fracture Requesting provider: Juaquin Potts Narrative: Mrs. Lane is an 86-year-old woman who suffered a ground level fall at [facility] yesterday evening. She was unable to walk afterwards and was taken to [facility] Emergency Room for evaluation. Radiographs revealed a displaced right femoral neck fracture. Earlier in the spring of this year she had a similar fall suffering a pelvic fracture with pubic ramus and sacral involvement. She has a past medical history of osteoporosis, some dementia, and congestive heart failure. Orthopedic consultation has been obtained for definitive management of the fracture. Meds Home Medications and Allergies Home Medications Medication Instructions Recorded Confirmed Type Disabled Parking Permit #1 ea 10/17/21 03/28/22 Rx amlodipine 2.5 mg tablet 2.5 mg PO DAILY #90 tabs 12/05/21 03/28/22 Rx furosemide 40 mg tablet 40 mg PO QAM #90 tabs 12/05/21 03/28/22 Rx dorzolamide 22.3 mg-timolol 6.8 1 drp EYE-BOTH BID 02/05/22 03/28/22 History mg/mL eye drops food supplemt, lactose-reduced 1 ea PO DAILY 02/05/22 03/28/22 History (Ensure oral liquid) tramadol 50 mg tablet 25 mg PO BID PRN pain #30 tabs 02/05/22 03/28/22 Rx magnesium 250 mg tablet 250 mg PO DAILY #90 tabs 02/09/22 03/28/22 Rx acetaminophen 325 mg tablet See Rx Instructions .Route 02/23/22 03/28/22 Rx .COMPLEX #180 tabs calcium carbonate 600 mg-vitamin 1 tab PO DAILY 03/28/22 03/28/22 History D3 20 mcg (800 unit) chewable tablet (Caltrate 600 plus D) vit A 300 mcg-C 200 mg-E 27 1 tab PO BID 03/28/22 03/28/22 History mg-lutein 2 mg and minerals tablet (I-Yara) vitamin E (dl, acetate) 180 mg 180 mg PO BEDTIME 03/28/22 03/28/22 History (400 unit) capsule Allergies Allergy/AdvReac Type Severity Reaction Status Date / Time Penicillins [PENICILLINS] Allergy Unknown Verified 02/05/22 13:17 Review of Systems Review of Systems Narrative: Review of systems is unobtainable as the patient is somnolent this morning. Exam Vital Signs (past 8 hours): - 03/27/22 23:40 03/27/22 23:40 03/28/22 00:00 Temperature Pulse Rate 91 H Respiratory Rate Blood Pressure 147/78 H 146/75 H Pulse Oximetry 88 L Oxygen Delivery Method Oxygen Flow Rate 03/28/22 00:00 03/28/22 00:30 03/28/22 00:30 Temperature Pulse Rate 92 H 90 Respiratory Rate Blood Pressure 155/80 H Pulse Oximetry 87 L 96 Oxygen Delivery Method Nasal Cannula Oxygen Flow Rate 2 03/28/22 01:00 03/28/22 01:00 03/28/22 01:30 Temperature Pulse Rate 94 H Respiratory Rate Blood Pressure 168/91 H 162/89 H Pulse Oximetry 95 Oxygen Delivery Method Oxygen Flow Rate 03/28/22 01:30 03/28/22 02:16 03/28/22 02:17 Temperature 97.5 F L Pulse Rate 91 H 93 H Respiratory Rate 20 Blood Pressure 141/72 H Pulse Oximetry 91 95 95 Oxygen Delivery Method Room Air Oxygen Flow Rate 2 0 03/28/22 02:40 03/28/22 06:00 Temperature 96.8 F L Pulse Rate 85 Respiratory Rate 15 Blood Pressure 133/64 Pulse Oximetry 92 Oxygen Delivery Method Room Air Oxygen Flow Rate 0 Oxygen Delivery Method Room Air Oxygen Flow Rate 0 Narrative Exam Narrative: The patient is examined while lying in bed. She does respond to questions but rapidly drifts off to sleep. She is lying on her left side. Right leg is shortened. Light touch is intact in the right foot throughout. She can dorsiflex and plantar flex her toes. She has a 2+ dorsalis pedis pulse. Objective Labs Result Diagrams: 03/28/22 05:05 03/28/22 05:05 Labs: Laboratory Results - last 24 hr 03/27/22 03/27/22 03/27/22 22:34 22:34 22:34 WBC 9.2 RBC 3.67 L Hgb 11.0 L Hct 32.3 L MCV 88.2 MCH 30.1 MCHC 34.1 RDW 15.4 H Plt Count 178 Neut % (Auto) 76.0 H Lymph % (Auto) 14.2 L [place] % (Auto) 8.0 Eos % (Auto) 1.2 L Baso % (Auto) 0.6 Neut # (Auto) 7000 Lymph # (Auto) 1300 [place] # (Auto) 700 Eos # (Auto) 100 Baso # (Auto) 100 Sodium 138 Potassium 3.8 Chloride 101 Carbon Dioxide 26 BUN 37 H Creatinine 1.23 H Estimated GFR 43 L BUN/Creatinine Ratio 30.1 H Glucose 101 Calcium 9.0 Magnesium Total Bilirubin 2.2 H AST 39 H ALT 27 Alkaline Phosphatase 80 Total Creatine Kinase CK-MB (CK-2) CK-MB (CK-2) Rel Index Troponin I Total Protein 7.0 Albumin 4.3 Globulin 2.7 Albumin/Globulin Ratio 1.6 SARS-CoV-2 (PCR) Blood Type A Positive Antibody Screen Negative 03/27/22 03/27/22 03/28/22 22:34 22:56 05:05 WBC 8.8 RBC 3.62 L Hgb 10.9 L Hct 31.6 L MCV 87.4 MCH 30.1 MCHC 34.4 RDW 14.9 H Plt Count 136 L Neut % (Auto) 86.3 H Lymph % (Auto) 6.2 L [place] % (Auto) 7.2 Eos % (Auto) 0.1 L Baso % (Auto) 0.2 Neut # (Auto) 7600 H Lymph # (Auto) 500 L [place] # (Auto) 600 Eos # (Auto) 0 Baso # (Auto) 0 Sodium Potassium Chloride Carbon Dioxide BUN Creatinine Estimated GFR BUN/Creatinine Ratio Glucose Calcium Magnesium 2.5 H Total Bilirubin AST ALT Alkaline Phosphatase Total Creatine Kinase 104 CK-MB (CK-2) 2.26 CK-MB (CK-2) Rel Index 2.2 Troponin I < 0.012 Total Protein Albumin Globulin Albumin/Globulin Ratio SARS-CoV-2 (PCR) Negative Blood Type Antibody Screen 03/28/22 05:05 WBC RBC Hgb Hct MCV MCH MCHC RDW Plt Count Neut % (Auto) Lymph % (Auto) [place] % (Auto) Eos % (Auto) Baso % (Auto) Neut # (Auto) Lymph # (Auto) [place] # (Auto) Eos # (Auto) Baso # (Auto) Sodium 139 Potassium 3.1 L Chloride 103 Carbon Dioxide 29 BUN 26 H Creatinine 0.97 Estimated GFR 57 L BUN/Creatinine Ratio 26.8 H Glucose 107 Calcium 8.5 Magnesium Total Bilirubin AST ALT Alkaline Phosphatase Total Creatine Kinase CK-MB (CK-2) CK-MB (CK-2) Rel Index Troponin I Total Protein Albumin Globulin Albumin/Globulin Ratio SARS-CoV-2 (PCR) Blood Type Antibody Screen COUNT INCLUDES [facility] Medical History Bilateral lower extremity edema Body posture problem Cataracts, bilateral (~2013) Change in voice CKD (chronic kidney disease) stage 3, GFR 30-59 ml/min Congestive heart failure of unknown etiology MADRID (dyspnea on exertion) Fatigue Fractures (2000) Glaucoma (~2016) Gout (2001) Hypertension (Unknown) Leg cramps Mobility impaired Muscular deconditioning Osteoporosis (~1998) Pelvic pain POLST (Physician Orders for Life-Sustaining Treatment) Swelling of both ankles Urinary tract infection Surgical History History of surgery on arm (~2000) History of tonsillectomy (1961) Status post cholecystectomy (1995) Family History Father No problems noted. Mother Cancer Social History household members: spouse Tobacco & Substance Use Smoking Status: Never smoker alcohol intake: current Assessment & Plan Assessment & Plan narrative: The patient is a debilitated elderly female with osteoporosis, congestive heart failure, chronic renal insufficiency and mild dementia. She has had a history of falls over the last year. She has a femoral neck fracture on the right. Surgical treatment for this would consist of a hemiarthroplasty. I have a call in to the patient's daughter who I have been informed is her durable power of corporate associate attorney. We will discuss the options of hemiarthroplasty later today, likely in the early evening or comfort care. I will preliminarily place her on the surgical schedule until this discussion has been concluded. She should remain NPO in preparation for possible surgery. COVID-19 COVID-19 status: Negative Result date/Date tested (Pos, Neg/Pending): 03/27/22 Time Spent With Patient Critical Care time: I spent a total of [] minutes of critical care time on this patient's care today ; this time is exclusive of procedural time.
--- NOTE | 2022-03-28 10:53 | CM.DANOTE ---
Addendum entered by JIM Loyola 03/28/22 15:25: ADD: SCOTT confirmed with Nelly at [facility] that they will deliver DME to [facility] tomorrow and have pt on the schedule for Sat 03/31 between [id number] and have pt on the list to start sooner if they have a cancellation. SCOTT called Kalyn at [facility] and currently she would be agreeable with pt discharging 03/30/22 afternoon if family will be present knowing Hospice would open the next morning. SCOTT updated DPJEFF Butterfield via email and she confirmed the above and is agreeable. Greer made aware that pt currently Inpt Status but could switch to OBS pending medical needs/pain management and Greer made aware that Medicare may not fully cover BLS transport but will provide supporting documentation and family can always contest medicare denial of BLS coverage. Plan: SW to follow for plan of d/c back to [facility] by Sat afternoon with [facility] to open Sat [id number] unless Hospice has an opening sooner. BF Addendum entered by JIM Loyola 03/28/22 13:49: ADD: SCOTT confirmed with Nelly at [facility] that she will complete Info Visit with family today at 1400. If family agreeable with Hospice, they could deliver DME tomorrow 03/29/22 but currently next opening is 03/31/[address] pt on list that if something else opened sooner they could add her. SCOTT called Kalyn at [facility] and confirmed she reviewed clinicals and discussed if DME delivered tomorrow could they accept pt tomorrow or Fri with Hospice to open Sat or earlier if they have something open up at Hospice? Kalyn states her concerns are if pt has pain management issues prior to [facility] opening pt to service then they do not have RN on-site over the weekend. SCOTT discussed if pt remains stable with pain maybe she could do a bedside assessment as pt may switch from Inpt to Obs Status since pt is not having surgery. Kalyn willing to discuss further tomorrow once we see how pt does overnight. SCOTT received copy of DPOA pwk from Dtmat Butterfield and faxed that along with current POLST to [facility] to review and made copy to be scanned into pt chart. BF Original Note: Patient is an 86 yo female who was admitted on 03/28/22 for GLF. Pt has [facility] and [employer] for insurance and her PCP is Dr. James Ndiaye. EMR was reviewed. Per MD, pt with femoral neck fx and Ortho to Consult. Per Ortho, in depth discussion with pt and family members regarding options and surgical intervention and after family discussion the decision was made to not do surgery but to switch to Comfort Measures. SW met bedside with pt, who did not participate much in discussion, her spouse who has dementia, her Dtr Meenu and Dtr ashleigh/EFRAIN Butterfield ([phone]) plans to email a copy of pt's DPOA pwk to care management later today. Family confirms that pt resides at [facility] and has begun to decline in her health the past few months and pt lives in an apt there where she receives assistance but her demented who lives in the same apt is technically Independent. Pt has a recent hx of needing SNF rehab for hospital admission and pt has stated she does not want to pursue surgery and go through Rehab and wants to be comfortable. Family confirms that they have decided not to move forward with surgical intervention and SW discussed at length possible options of return to [facility] assisted with her spouse and received Hospice services. Family states this is their preference and they are agreeable for [facility] referral and hopeful for Info Visit today and have a meeting with Kalyn at [facility] next. SW discussed after Info Visit if they agree to sign consents then DME can be delivered so pt can d/c back to [facility] and they are also agreeable with BLS transport at d/c due to pt's non-healed fx. Dtmat Corrigan and EFRAIN Butterfield state they have to go to [place] for a couple days starting tonight but available by phone and can be present if needed, but they should not need to be present for discharge. SCOTT called [facility] and made new referral and left ms for Diana requesting Info VIsit today if possible and hopeful DME delivery tomorrow. SCOTT called Kalyn at [facility] and discussed and she confirms she just met with Erin and feels they have a good plan for pt return once Hospice DME delivered and if Hospice can open soon after (within a day or two) and requests review of pt's clinicals. SCOTT faxed Kalyn for review. BLS form completed in anticipation of Hospice at [facility] at d/c. Plan: SW to follow closely for [facility] review and Info Visit with family towards scheduling DME delivery to [facility] and ongoing coordination with pt's EFRAIN Butterfield. JIM Loyola Discharge Planning/Care Management CM Discharge Assessment Start: 03/28/22 10:51 Freq: Status: Active Protocol: Document 03/28/22 10:51 BF (Rec: 03/28/22 10:53 BF [id number]) Discharge Planning Assessment Assigned Flooring Sales Manager JIM Caldwell DPJEFF/Assigned Designee Name Dtr in law [facility] Contact Information [phone] Advance Directives? Yes: POLST Advance Directives on File No History Provided By Patient,Family Member, Significant Other,Medical Record Has Patient been admitted in last 30 No days? Prior Living Arrangements Assisted Living Household Members spouse Type of transporation used prior to Relies on Others admit Facility Name Admitted From: [facility] Willing to Return to Facility? Yes Independent with ADL's No Is patient alert and oriented? Yes Needs Assistance With Grooming,Meal Prep,Managing Medications,Home Chores / Shopping Caregiver for Another No DME Already Rented / Owned Bath Bench,FWW / Walker Barriers to Discharge No Discharge Plan [facility] Hospice Transportation Arrangement Children, she has a son that lives in town, does not drive and has dementia. Dtr in law and Dtr also live locally Referrals Initiated Other Additional Comment [facility] referral made for return to [place] on Comfort Whiteboard Updated in Patient Room with Yes name and ext. # of Flooring Sales Manager Review Status In Process Please Provide Date Initial DC 03/28/22 Assessment Was Performed Next Review Type Continued Stay Review
--- NOTE | 2022-03-28 11:00 | SLP.IPNOTE ---
Orders received. Pt is NPO pending surgery. Will assess post surgery when pt is able to participate.
--- NOTE | 2022-03-28 14:16 | DIET.CONS ---
Dietary Consultation Note Admission Date: 03/28/2022 00:49 Assessment: 86y F admitted after GLF sustaining hip fracture referred to RD for low MNA (at risk for malnutrition). Pt lives at [facility] with who has dementia. Upon chart review, pt has 10% unintentional weight loss in 3mo (severe) with BMI 20.9 (severe for age) and osteoporosis. Pt had GLF earlier this year resulting in pubic and sacral fractures. Pt has Rx for ONS Ensure but has been losing weight despite ONS intervention at home. Ht: 139.7 cm Wt: 41 kg (-10% in 3mo, severe) BMI: 20.9 (severe for age) UBW: 50kg Last BM: 03/27/22 (03/28/22 00:54) MNA: 7 Luis Eduardo Score: 15 Diet: 03/28/22 01:17 NPO Diet Diet Modifications: NPO Type: NPO except for Ice Chips Labs: RBC 3.62 X10^6/uL (4.0-5.2) L 03/28/22 05:05 Hgb 10.9 g/dL (12.0-16.0) L 03/28/22 05:05 Hct 31.6 % (36-46) L 03/28/22 05:05 Creatinine 0.97 mg/dL (0.52-1.04) 03/28/22 05:05 Nutrition Diagnosis: Severe Acute Protein Calorie Malnutrition r/t general decline s/p pubic fracture aeb 10% unintentional weight loss in 3mo (severe), BMI 20.9 (severe for age), pt with osteoporosis and acute GLF resulting in femoral fracture. Interventions: 1. [facility] ONS Ensure Enlive bid to support nutrition status in addition to meals. EER: 1400kcals (35kcal/kg per PCM), 55g PRO (1.3g/kg per PCM) Monitoring/Evaluations: POC Electronically Signed by: Kiersten Mccormack 03/28/22 14:16 Clinical Dietitian [address] [id number]
--- NOTE | 2022-03-28 14:36 | SLP.IPNOTE ---
Attempted to see pt. She was soomnolent in her bed. She did not want to participate ST. Pt's family investigating Hospice care. Will try to see pt tomorrow.
[2022-03-28] MEDS: HEPARIN 5,000 UNIT/ML VIAL 5000 UNIT SUBCUT (20:17)
[2022-03-28] MEDS: SODIUM CHLORIDE 0.9% FLUSH 10 ML IV (20:18)
--- NOTE | 2022-03-28 21:29 | PC.NURSE ---
Addendum entered by Daniella Hemphill R.N. 03/29/22 06:04: At 0550 went in to patient room to reposition her and found patient not breathing and without a pulse. Coordinator, Lali, informed of . Dr. Agustin informed of . Greer Lane contacted and informed of patient's passing. Original Note: Patient is alert but oriented only to self and birthdate tonight. Breath sounds CTA but is on oxygen at 2L/min per NC with sat of 94%. HRR but BP trends high and was 148/69 at time of assessment. BT present and abdomen is soft. Has been incontinent of urine so has Purewick in place. IS Being repositioned q2h as is not moving herself. Denies pain and has no indication of discomfort with movement. Is wearing bilateral calf SCD's. Fall risk score is high and bed alarm is activated.
--- NOTE | 2022-03-29 07:03 | P.DN_ITS ---
Discharge Summary History of Illness Narrative: Ms. Lane is an 86W with PMH CHF, osteoporosis, previous falls with chronic fractures including displaced pelvic fracture who presents after a fall. She sta carmen she was walking across the floor and says it was slick which caused her to lose her footing and fall on her right side. She said she had right hip pain and could not walk. No head strike or loss of consciousness. In the ED workup was done, vitals notable for elevated blood pressure. Labs nota ble for WBC 9.2, hgb 11, plts 178. Creatinine 1.23. Bili 2.2. Trop negative. COVID negative. Pelvic xray shows acute right femoral neck fracture. CT thorax shows additionally likely bilateral sacral ala fracture, old left inferior pubic ramus fracture with healed nonunion. Numerous thoracic compression deformities. Old sternal body fracture. And also age indeterminate sternal manubrium fracture. She was ordered for pain control and admitted for further treatment. Hospital Course Date of Admission: 03/28/22 00:49 Primary care provider: James Ndiaye DO Consults: 03/28/22 01:23 Consult to Orthopedic Surgery Routine Comment: Consulting Provider: Phuc Lisa Reason for consultation: hip fracture Has provider been notified: Yes 03/28/22 02:40 Consult to Dietitian, Adult Routine Comment: Reason For Exam: Luis Eduardo score of 15 03/28/22 10:24 Consult to Speech Therapy Evaluate & Treat Comment: Pt almost aspirated Physician Instructions: Evaluate and treat Discharge Diagnosis: 1. Acute right hip fracture 2. Osteoporosis 3. Hypertension 4. ALEX on CKD 5. Chronic CHF Hospital Course: Please see H+P for details. Ms. Lane was admitted after a fall with a right hip fracture. She has had multiple falls and injuries previously and has known significant osteoporosis. Surgery was consulted to consider possible surgical repair, and after discussion with family decision was made that surgery was not within goals of care and plan was to discharge with hospice. She was a DNR/DNI and prior to being discharged she in her sleep early on the morning of 03/29/22 at 5:50am. Objective Labs Result Diagrams: 03/28/22 05:05 03/28/22 05:05
--- NOTE | 2022-03-29 08:51 | CM.DPC ---
DCP Cont: Spoke to patient's nurse, Leonardo, and was informed that patient this morning before 0600. Family informed, and were able to say their goodbyes. They have contacted home. [facility] and updated Sandhya that patient has . Lorelei Rubin RN/Gem Setter
--- NOTE | 2022-03-29 12:13 | SLP.IPNOTE ---
Pt early this morning. D/C
--- NOTE | 2022-03-29 15:09 | PC.NURSE ---
Pt's [id number], Greer came to roll picker pt's bag of belongings from the main nurses station at 1505
== END 2022-03-29 14:35 | disposition expired | DRG 963 ==
LOC: ED 22:34 → AC 03-28 00:50
PROVIDERS: Admitting Provider Internal Medicine; Emergency Provider Emergency Medicine; PCP Family Medicine; Referring Provider Emergency Medicine; Visit Provider Internal Medicine
DX: S72.001A Fracture of unspecified part of neck of right femur, initial encounter for closed fracture (principal); E43 Unspecified severe protein-calorie malnutrition; S32.10XA Unspecified fracture of sacrum, initial encounter for closed fracture; S22.000A Wedge compression fracture of unspecified thoracic vertebra, initial encounter for closed fracture; S32.592K Other specified fracture of left pubis, subsequent encounter for fracture with nonunion; N17.9 Acute kidney failure, unspecified; I13.0 Hypertensive heart and chronic kidney disease with heart failure and stage 1 through stage 4 chronic kidney disease, or unspecified chronic kidney disease; W01.0XXA Fall on same level from slipping, tripping and stumbling without subsequent striking against object, initial encounter; Z91.81 History of falling; Y92.099 Unspecified place in other non-institutional residence as the place of occurrence of the external cause; M81.0 Age-related osteoporosis without current pathological fracture; I50.9 Heart failure, unspecified; N18.30 Chronic kidney disease, stage 3 unspecified
CPT/HCPCS: 36415; 71260; 72170; 74177; 80048; 80053; 82550; 82553; 83735; 84484; 85025; 86850; 86900; 86901; 87635; 94760; 96374; 99284; C9803; J1644; J2270; Q9967